=== PATIENT | female | born 1990 | race Caucasian/White ===

== ENCOUNTER 2022-06-22 08:26 | Emergency (ER) | payer BC, SELFPAY ==
--- NOTE | 2022-06-22 08:33 | ED.URI ---
HPI - URI/Sore Throat General Chief Complaint: Upper Respiratory Infection Stated Complaint: Sore Throat Source: patient and RN notes reviewed History of Present Illness HPI Narrative: 31-year-old female presents to urgent care with complaints of a sore throat and fevers since yesterday. Patient states her son tested positive for strep throat on Wednesday. Patient has taken Tylenol for her symptoms. Patient denies any chest pain and shortness of breath, or vomiting. Patient is approximately 11 weeks . 3 para 4. Some parts of this dictation were generated by voice recognition software and may contain typographical and/or grammatical inaccuracies. Related Data Home Medications Medication Instructions Recorded Confirmed escitalopram oxalate 20 mg tablet 20 mg PO DIRECTED 06/22/22 06/22/22 Allergies Allergy/AdvReac Type Severity Reaction Status Date / Time cefaclor Allergy Mild Hives / Verified 06/22/22 08:40 Red Face sulfamethoxazole Allergy Mild Hives / Verified 06/22/22 08:40 Red Face trimethoprim Allergy Mild Hives / Verified 06/22/22 08:40 Red Face Review of Systems Review of Systems: CONSTITUTIONAL: Denies fever, chills, or sweats. EYES: Denies visual changes, redness, or discharge. ENT: Reports sore throat CARDIOVASCULAR: Denies chest pain, palpitations, or edema. RESPIRATORY: Denies cough or dyspnea. GASTROINTESTINAL: Denies abdominal pain, nausea, vomiting, or diarrhea. GENITOURINARY: Denies dysuria or hematuria. SKIN: Denies rash or itching. MUSCULOSKELETAL: Denies back pain, joint pain, or myalgia. NEUROLOGIC: Denies headache, numbness, or weakness. Psychiatric: Denies anxiety or any suicidal or homicidal thoughts PMFSH Comments At the time of my signature, I reviewed and agree with the nursing past medical, surgical, social, and family history. There is no relevant family history pertinent to the patient complaint. Exam Narrative: GENERAL: This is a well-nourished, well-developed patient, in no apparent distress. HEAD: normocephalic, atraumatic. EYES: PERRL. Sclera clear/white. Vision is grossly intact. EARS: External ears normal, auditory canals clear and without drainage, TMs normal without perforation. Hearing grossly intact. NOSE: External nose normal with no obvious nasal discharge, nares without redness, no rhinorrhea. THROAT: Pharynx erythemic. Tonsils 1+ bilaterally. No exiting and. NECK: Mild lymphadenopathy. CARDIOVASCULAR: Regular rate and rhythm without murmurs, gallops, or rubs. RESPIRATORY: Clear to auscultation. Breath sounds equal bilaterally. No wheezes, rales, or rhonchi. GASTROINTESTINAL: Abdomen soft, non-tender, nondistended. Bowel sounds are active. No hepato-splenomegaly, or palpable masses. No guarding. SKIN: warm, intact with no suspicious lesions or rash, good texture and turgor. NEURO: awake, alert, and oriented to person, place and time. There were no obvious focal neurologic abnormalities. Course Course Level of Care: Express Care Visit Vital Signs Vital signs: Vital Signs Temperature 98.4 F 06/22/22 08:35 Pulse Rate 110 H 06/22/22 08:35 Respiratory Rate 06/22/22 08:35 Blood Pressure 103/70 06/22/22 08:35 Pulse Oximetry 100 06/22/22 08:35 Oxygen Delivery Room Air 06/22/22 08:35 Temperature 98.4 F 06/22/22 08:35 Pulse Rate 110 H 06/22/22 08:35 Respiratory Rate 20 06/22/22 08:35 Blood Pressure 103/70 06/22/22 08:35 Pulse Oximetry 100 06/22/22 08:35 Oxygen Delivery Room Air 06/22/22 08:35 Reviewed. MDM - URI/Sore Throat MDM Narrative Medical decision making narrative: After 24 hours on antibiotics throw tooth brush away and start using a new one. Do not share drinks. Take Motrin alternating with Tylenol for pain and fever alternating every 4 hours. Increase fluids, avoid caffeine. Follow up with Primary provider if not getting better this week Differential Diagnosis
[2022-06-22 08:35] VITALS: BP 103/70; PULSE 110; RESP 20; TEMP 36.9; O2SAT 100
== END 2022-06-22 09:02 | disposition home or self-care (01) ==
PROVIDERS: Emergency Provider Nurse Practitioner Family; PCP Family Medicine
DX: J02.0 Streptococcal pharyngitis (principal)
CPT/HCPCS: 87880; 99213; G0463

== ENCOUNTER 2024-10-30 16:08 | Observation (INO) | payer OTHER, SELFPAY ==
[2024-10-30] VITALS (37 sets, daily range): BP systolic 111–132; BP diastolic 53–77; PULSE 69–117; O2SAT 81–100; BMI 28.3
--- OUTSIDE RECORDS SUMMARY | 2024-10-30 16:15 | XMS_ITS | Clinical Summary ---
Author Organization [facility] Address [address] [place] [address] Phone Care Team Providers Care Satellite Tv Installer Name Role Phone Provider, None Primary Care Provider Unavailabl e Medications escitalopram (LEXAPRO) 10 MG Tablet TAKE 1 TABLET BY MOUTH ONCE DAILY 04/16/2020 Active Ferrous Sulfate (Iron) 325 (65 Fe) MG Tablet TAKE 1 TABLET BY MOUTH TWICE DAILY WITH MORNING MEAL AND WITH EVENING MEAL 03/02/2020 Active Active Problems No known active problems Social History Tobacco Use Types Packs/Day Years Used Date Smoking Tobacco: Never Smokeless Tobacco: Never Comments No Sex and Gender Information Value Date Recorded Sex Assigned at Not on file Legal Sex Female 9:56 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 Gender Identity Not on file Sexual Orientation Not on file Last Filed Vital Signs Vital Sign Reading Time Taken Comments Blood Pressure 116/70 05/06/2020 10:46 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 Pulse 83 05/06/2020 10:46 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 Temperature 35.8 C (96.4 F) 05/06/2020 10:46 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 Respiratory Rate 16 05/06/2020 10:46 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 Oxygen Saturation 98% 05/06/2020 10:46 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 Inhaled Oxygen Concentration - - Weight 62.6 kg (138 lb) 05/06/2020 10:46 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 Height - - Body Mass Index - - Plan of Treatment Health Maintenance Due Date Last Done Comments Hepatitis C Virus (HCV) Screening 1990 Hepatitis B Immunization (1 of 3 - 19+ 3-dose series) 2009 Pap Smear 08/26/2011 Cervical Cancer Screening (CCS) 2020 HPV/Cotest 2020 Influenza Immunization (#1) 2024 03/13/2019 SARS-COV-2 Immunization ( - season) 2024 10/02/2020, 09/04/2020 Respiratory Syncytial Virus (RSV) Immunization (Adult) (1 - 1-dose 75+ series) 2065 DTaP/Tdap/Td Immunization Discontinued 06/19/2019 TdaP Immunization Completed 06/19/2019 Meningococcal Immunization (ACWY) Aged Out No longer eligible based on patient's age to complete this topic Pneumococcal Immunization Combined Aged Out No longer eligible based on patient's age to complete this topic Rotavirus Immunization Aged Out No lo nger eligible based on patient's age to complete this topic Insurance [facility] Care Teams Satellite Tv Installer Relationship Specialty Start Date End Date Provider, None [place] PCP - General 05/06/20
--- OUTSIDE RECORDS SUMMARY | 2024-10-30 16:16 | XMS_ITS | Clinical Summary ---
Author Organization [facility] Address [address] [place] [phone] Phone Care Team Providers Care Stringed Instrument Tuner Name Role Phone Unavailable Primary Care Provider Unavailabl e Encounters Date Type Department Care Team Description 10/24/2024 External Device Data ST[facility] ABSTRACTION Provider, Abstract 10/17/2024 External Device Data STL ABSTRACTION Provider, Abstract 09/21/2024 External Device Data ST[facility] ABSTRACTION Provider, Abstract 09/20/2024 External Device Data [facility] ABSTRACTION Provider, Abstract 09/19/2024 External Device Data [facility] ABSTRACTION Provider, Abstract 08/29/2024 External Device Data ST[facility] ABSTRACTION Provider, Abstract 08/29/2024 External Device Data STL ABSTRACTION Provider, Abstract 08/29/2024 External Device Data STL ABSTRACTION Provider, Abstract 08/24/2024 9:00 AM CDT - 08/24/2024 11:59 PM CDT Hospital Encounter [facility]aternal and [facility] [address] [place] [address] Hong Howadr MD Discharge Disposition: Home or Self Care from Last 3 Months Social History Tobacco Use Types Packs/Day Years Used Date Smoking Tobacco: Never Assessed Comments Unknown Sex and Gender Information Value Date Recorded Sex Assigned at Not on file Legal Sex Female 4:20 PM CDT Gender Identity Not on file Sexual Orientation Not on file Plan of Treatment Health Maintenance Due Date Last Done Comments HEPATITIS B VACCINES (1 of 3 - 19+ 3-dose series) 2009 HPV/Cotest (21-29) 08/26/2011 CERVICAL CANCER SCREENING 2020 HPV/Cotest (30-65) 2020 PAP SMEAR 2020 DTAP/TDAP/TD VACCINES (4 - Td or Tdap) 01/03/2033 01/03/2023, 06/19/2019, 02/26/2016 INFLUENZA VACCINE Completed 02/17/2024, , 02/23/2022, Additional history exists HPV VACCINES Aged Out No longer brenna nick based on patient's age to complete this topic Procedures Procedure Name Priority Date/Time Associated Diagnosis Comments US OB 14+ WKS SINGLE GEST Routine 08/24/2024 10:08 AM CDT Encounter for screening for malformation from Last 3 Months Results * US OB 14+ WKS SINGLE GEST (08/24/2024 10:08 AM CDT) Anatomical Region Laterality Modality Pelvis Ultrasound 08/24/2024 9:20 AM CDT Narrative 08/24/2024 11:34 AM CDT STL BASIC ----- Pat. Name: ALAINA MEEHAN Study Date: 08/24/2024 9:20am Pat. NO: [id number] Referring MD: HONG HOWARD MD Site: [facility] Worker: Sadia Pettit RDMS : 1990 Age: 33 ----- INDICATION ----- Anatomy Survey Anxiety, Maternal lexapro CODING ----- Diagnoses Z3A.20: Weeks of gestation O99.342: Other mental disorders complicating Z36.3: Encounter for screening for malformations Procedures 59243: Ultrasound, uterus, real time with image documentation, and maternal evaluation, after first trimester (> or = 14 weeks 0 days), transabdominal approach; single or first gestation HISTORY ----- OB History 6. Para 4 T4A1L4 MATERNAL ASSESSMENT ----- Physical Exam Weight 64 kg. BMI 25.15 kg/m METHOD ----- Transabdominal ultrasound examination ----- Bueno . Number of fetuses: 1 DATING ----- Cycle: regular cycle Method of dating: based on stated BAUDILIO GA by prior assessment 20 w + 3 d BAUDILIO by prior assessment: 01/08/2025 Ultrasound examination on: 08/24/2024 GA by U/S based upon: AC, BPD, EFW, Femur, HC GA by U/S 20 w + 3 d BAUDILIO by U/S: 01/08/2025 Assigned: based on stated BAUDILIO, selected on 08/24/2024 Assigned GA 20 w + 3 d Assigned BAUDILIO: 01/08/2025 BIOMETRY ----- BPD 48.9 mm 20w 6d 65% Hadlock OFD 65.9 mm 22w 2d 95% Pascual HC 182.9 mm 20w 5d 53% Hadlock Cerebellum tr 21.5 mm 21w 0d 66% Galvez Nuchal fold 4.9 mm AC 157.6 mm 20w 6d 60% Hadlock Femur 31.2 mm 19w 5d 18% Hadlock Humerus 30.8 mm 20w 1d 42% Pascual HC / AC 1.16 43% Nicolaides Weight Calculation: EFW 351 g 20w 2d 42% Hadlock EFW (lb,oz) 0 lb 12 oz EFW by Hadlock ([id number]) Head / Face / Neck Biometry: Turkey Picker 7.3 mm CM 3.5 mm 8% Nicolaides Outer IOD 32.3 mm 20w 5d 30% Pascual Extremities / Bony Struc Biometry: FL / BPD 0.64 4% Hadlock FL / HC 0.17 3% Hadlock FL / AC 0.20 5% Hadlock GENERAL EVALUATION ----- Cardiac activity present. FHR 158 bpm. movements: visualized. Presentation: transverse Placenta: Placental site: anterior. Placental rmvu-xk-jtwfvsdh os distance 51 mm Umbilical cord: Cord vessels: 3 vessel cord. Insertion site: placental insertion: normal Amniotic fluid: Amount of AF: normal amount. MVP 4.7 cm ANATOMY ----- The following structures appear normal: Head / Neck Cranium. Lateral ventricles. Choroid plexus. Midline falx. Cavum septi pellucidi. Cerebellum. Cisterna magna. Nuchal fold. Face Lips. Profile. Nose. Palate. Orbits. Heart / Thorax 4-chamber view. RVOT view. LVOT view. 3-vessel view. 7-lxnymb-bsnvwdv view. Situs. Aortic arch view. Ductal arch view. Superior vena cava. Inferior vena cava. High short axis view. Cardiac rhythm. Diaphragm. Abdomen Abdominal wall. Stomach. Kidneys. Bladder. Spine Cervical spine. Thoracic spine. Lumbar spine. Sacral spine. Extremities / Arms. Right hand. Left hand. Legs. Right foot. Left foot. Skeleton MATERNAL STRUCTURES ----- Cervix Visualized Approach - Transabdominal: Cervical length 37.9 mm Right Ovary Normal Size 35 mm x 26 mm x 15 mm. Vol 7.0 cm Left Ovary Normal Size 33 mm x 17 mm x 15 mm. Vol 4.3 cm GROWTH OVERVIEW ----- Exam date GA BPD (mm) HC (mm) AC (mm) FL (mm) HL (mm) EFW (g) 08/24/2024 20w 3d 48.9 65% 182.9 53% 157.6 60% 31.2 18% 30.8 42% 351 42% COMMENT ----- Patient's name and date of were confirmed by the crop adjuster prior to the exam IMPRESSION ----- - Intrauterine at 20w 3d based on the reported dates. - The estimated weight is 351 g which is at the 42% percentile. - The visualized anatomy appears unremarkable to the extent of ultrasound views. - The placenta is anterior without concern for previa or low-lying placenta. - Amniotic fluid amount is normal for gestational age. (MVP of 4.7 cm). Normal PCI. - Normal maternal adnexa and ovaries. - Normal cervical length. An anatomic survey cannot rule out all abnormalities, including structural, chromosome or genetic. Follow up as clinically indicated. Consider growth and third trimester anatomy at 30-32 weeks. Thank you for allowing us to participate in the care of this patient. Procedure Note Neha Graves MD - 08/24/2024 STL BASIC ----- Pat. Name:Chen MEEHAN Date:08/24/2024 9:20am Pat. NO: [id number] MD:HONG HOWARD [facility]Sadia Pettit RDMS :1990Age:33 ----- INDICATION ----- Anatomy Survey Anxiety, Maternal lexapro CODING ----- Diagnoses Z3A.20: Weeks of gestation O99.342: Other mental disorders complicatingpregnancy Z36.3: Encounter for screening formalformations Procedures [id number]: Ultrasound, uterus, real time withimage documentation, and maternal evaluation, after first trimester (> or = 14 weeks 0 days),transabdominal approach; single or first gestation HISTORY ----- OB History 6. Para 4 T4A1L4 MATERNAL ASSESSMENT ----- Physical Exam Weight 64 kg. BMI 25.15 kg/m METHOD ----- Transabdominal ultrasound examination ----- Bueno . Number of fetuses: 1 DATING ----- Cycle:regular cycle Method of dating:based on stated BAUDILIO GA by prior [id number] w + 3 d BAUDILIO by prior assessment:01/08/2025 Ultrasound examination on:08/24/2024 GA by U/S based upon:AC, BPD, EFW, Femur, HC GA by U/S20 w + 3 d BAUDILIO by U/S:01/08/2025 Assigned:based on stated BAUDILIO, selected on 08/24/2024 Assigned GA20 w + 3 d Assigned BAUDILIO:01/08/2025 BIOMETRY ----- BPD 48.9 mm 20w 6d65% Hadlock OFD 65.9 mm 22w 2d95% Pascual HC 182.9 mm 20w 5d53% Hadlock Cerebellum tr 21.5 mm 21w 0d66% Galvez Nuchal fold 4.9 mm AC 157.6 mm 20w 6d60% Hadlock Femur 31.2 mm 19w 5d18% Hadlock Humerus 30.8 mm 20w 1d42% Pascual HC / AC 1.16 43%Nicolaides Weight Calculation: EFW 351 g 20w 2d 42%Hadlock EFW (lb,oz) 0 lb 12 oz EFW by Hadlock ([id number]) Head / Face / Neck Biometry: Turkey Picker 7.3 mm CM 3.5 mm 8%Nicolaides Outer IOD 32.3 mm 20w 5d 30%Pascual Extremities / Bony Struc Biometry: FL / BPD 0.64 4%Hadlock FL / HC 0.17 3%Hadlock FL / AC 0.20 5%Hadlock GENERAL EVALUATION ----- Cardiac activity present. FHR 158 bpm. movements: visualized.Presentation: transverse Placenta: Placental site: anterior. Placental nusm-jq-eapgehcs os mm Umbilical cord: Cord vessels: 3 vessel cord. Insertion site: placentalinsertion: normal Amniotic fluid: Amount of AF: normal amount. MVP 4.7 cm ANATOMY ----- The following structures appear normal: Head / Neck Cranium. Lateral ventricles. Choroid plexus.Midline falx. Cavum septi pellucidi. Cerebellum. Cisterna magna. Nuchal fold. Face Lips. Profile. Nose. Palate. Orbits. Heart / Thorax 4-chamber view. RVOT view. LVOT view. 3-vesselview. 9-zjfkvz-bxlvhom view. Situs. Aortic arch view. Ductal arch view. Superior vena cava. Inferiorvena cava. High short axis view. Cardiac rhythm. Diaphragm. Abdomen Abdominal wall. Stomach. Kidneys. Bladder. Spine Cervical spine. Thoracic spine. Lumbar spine.Sacral spine. Extremities / Arms. Right hand. Left hand. Legs. Right foot.Left foot. Skeleton MATERNAL STRUCTURES ----- Cervix Visualized Approach - Transabdominal: Cervical length 37.9mm Right Ovary Normal Size 35 mm x 26 mm x 15 mm. Vol 7.0 cm Left Ovary Normal Size 33 mm x 17 mm x 15 mm. Vol 4.3 cm GROWTH OVERVIEW ----- Exam date GA BPD (mm) HC (mm) AC (mm) FL(mm) HL (mm) EFW (g) 08/24/2024 20w 3d 48.9 65% 182.9 53% 157.6 60%31.2 18% 30.8 42% 351 42% COMMENT ----- Patient's name and date of were confirmed by the crop adjuster priorto the exam IMPRESSION ----- - Intrauterine at 20w 3d based on the reported dates. - The estimated weight is 351 g which is at the 42% percentile. - The visualized anatomy appears unremarkable to the extent ofultrasound views. - The placenta is anterior without concern for previa or low-lyingplacenta. - Amniotic fluid amount is normal for gestational age. (MVP of 4.7 cm).Normal PCI. - Normal maternal adnexa and ovaries. - Normal cervical length. An anatomic survey cannot rule out all abnormalities, includingstructural, chromosome or genetic. Follow up as clinically indicated. Consider growth and third trimester anatomy at 30-32 weeks. Thank you for allowing us to participate in the care of this patient. us Hong Howard MD ORDERABLES Final Result from Last 3 Months Insurance [facility] OPEN ACCESS O
--- OUTSIDE RECORDS SUMMARY | 2024-10-30 16:16 | XMS_ITS | Encounter Summary ---
Author Organization [facility] Address [address] [address] Care Team Providers Care Financial Services Auditor Name Role Phone Cristina Trammell DO Primary Care Provider [phone] Reason for Visit * Reason Onset Date Comments MEDICATION REFILL 08/23/2018 Encounter Details Date Type Department Care Team (Late st Contact Info) Description 08/23/2018 Refill [facility] [address] [place] [address] Breann Plascencia MD [address] OF RHEUMATOLOGY [place], [place] [id number] MEDICATION REFILL Social History Tobacco Use Types Packs/Day Years Used Date Smoking Tobacco: Never Smokeless Tobacco: Never Comments Unknown Sex and Gender Information Value Date Recorded Sex Assigned at Not on file Legal Sex Female 5:36 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 It appears she hascanceled one appointment with Dr. Porter and has not further follow up scheduled, so I did not provide refills. Breann Plascencia MD Rheumatology Fellow documented in this encounter Plan of Treatment Not on file documented as of this encounter Visit Diagnoses Not on filedocumented in this encounter Care Teams Financial Services Auditor Relationship Specialty Start Date End Date Cristina Trammell DO PCP - General Family Medicine 10/24/18 documented as of this encounter
--- OUTSIDE RECORDS SUMMARY | 2024-10-30 16:16 | XMS_ITS | Patient Health Record ---
Author Organization [facility] Address [address] [place] [address] Care Team Providers Care Curing Finisher Name Role Phone Mike Duron Unavailable [phone] Reason For Referral No Information Plan Of Treatment No Information Insurance Providers Payer Name Payer Address Payer Phone Subscriber Number Group Number Insured Name Patient Relationship to Insured Coverage Start Date Coverage End Date COVID19 [facility] and Treatment [facility] [address] [address] [place] [address] [id number] Alaina Meehan Self - patient is the insured
--- OUTSIDE RECORDS SUMMARY | 2024-10-30 16:16 | XMS_ITS | Clinical Summary ---
Author Organization [facility] Address [address] [facility] [place] [address] Care Team Providers Care Driver Retraining Instructor Name Role Phone Cristina Trammell DO Primary Care Provider [phone] Source Comments [facility],non-owned Affiliates and Associated Physician Practices is amultiple site organization consisting of ambulatory clinics and hospital sitesin [place], [place], [place] and [place]. This disclosure is being madepursuant to the Care Everywhere program and may not contain all information available regarding this patient. Last updated 18.[facility] Allergies Active Allergy Reactions Criticality Noted Date Comments Cefaclor Other Medium 07/25/2013 Sulfamethoxazole W-Trimethoprim Other Medium 07/02 Medications * Be aware that medications may not be up to date on this document. Alwaysverify current medications with the patient. butalbital-jamal taminophen-caf feine (FIORICET) 50-325-40 MG tablet TAKE ONE OR TWO TABLETS BY MOUTH EVERY FOUR HOURS NEEDED FOR HEADACHE, NO MORE THAN 6/24 HRS 6 Active escitalopram (LEXAPRO) 10 MG tablet Take 10 mg by mouth once daily 9 Active ferrous sulfate 325 (65 FE) MG tablet Take 1 tablet by mouth 2 times daily with morning and evening meal 100 tablet 4 0 Active adalimumab (HUMIRA) 40 MG/0.4ML injection Inject 0.4 mL subcutaneously every 14 days 2 Pen 11 0 Active Active Problems Problem Noted Date Diagnosed Date Seropositive rheumatoid arthritis 10/26/2017 Long-term use of immunosuppressant medication Encounter for therapeutic drug monitoring 2017 Social History Tobacco Use Types Packs/Day Years Used Date Smoking Tobacco: Never Smokeless Tobacco: Never Comments Unknown Sex and Gender Information Value Date Recorded Sex Assigned at Not on file 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 Gender Identity Not on file Sexual Orientation Not on file Last Filed Vital Signs Vital Sign Reading Time Taken Comments Blood Pressure 118/83 10/24/2018 3:07 PM CDT Pulse 82 10/24/2018 3:07 PM CDT Temperature 36.8 C (98.3 F) 10/26/2017 10:54 AM CDT Respiratory Rate 16 10/27/2016 10:40 AM CDT Oxygen Saturation 100% 07/17/2015 12:43 PM CDT Inhaled Oxygen Concentration - - Weight 58.1 kg (128 lb) 10/24/2018 3:07 PM CDT Height 161.3 cm (5' 3.5) 10/26/2017 10:54 AM CD T Body Mass Index 22.32 10/26/2017 10:54 AM CDT Plan of Treatment Health Maintenance Due Date Last Done Comments HIV SCREENING 2005 DTAP/TDAP/TD VACCINES (1 - Tdap) 2009 HEPATITIS B VACCINE (1 of 3 - 19+ 3-dose series) 2009 COVID-19 VACCINE (1 - 2023-2 5 season) 2024 DEPRESSION SCREENING 05/03/2024 INFLUENZA VACCINE (Season Ended) 2025 03/13/2019, 01/25/2018, 04/02/2017 ZOSTER VACCINE (1 of 2) 2040 HEPATITIS C SCREENING Completed 07/31/2013 HIB VACCINE Aged Out No longer eligi ble based on patient's age to complete this topic HPV VACCINE Aged Out No longer eligi ble based on patient's age to complete this topic MENINGOCOCCAL (Group B) VACCINE SHARED DECISION-MAKING Aged Out No longer eligible based on patient's age to complete this topic MENINGOCOCCAL GROUPS A/C/Y/W VACCINE Aged Out No longer eligible b ased on patient's age to complete this topic PNEUMOCOCCAL VACCINE Aged Out No long er eligible based on patient's age to complete this topic Procedures Procedure Name Priority Date/Time Associated Diagnosis Comments HEPATITIS SCREEN ACUTE Routine 07/31/2013 11:58 AM CDT from Last 3 Months or Most Recently Relevant to Health Maintenance Results * HEPATITIS SCREEN ACUTE (07/31/2013 11:58 AM CDT) Hepatitis A Virus Antibody IgM NON-REACTI VE NON-REACT [facility]) Hepatitis B Virus Surface Antigen NON-REACTI VE NON-REACT [facility]) Hepatitis B Core Virus Antibody IgM NON-REACTI VE NON-REACT [facility]) Hepatitis C Antibody NON-REACTI VE NON-REACT [facility]) Signal/Cutoff 0.05 <1.00 [facility]) Comment: REPORT COMMENT: SPECIMEN TYPE->URINE Test Performed at: [facility] [address] [place] [address] KAY HANNA DO,MPH 07/31/2013 11:5 8 AM CDT 07/31/2013 12:00 PM CDT us Jackie Bach MD LAB - CHEMISTRY OR DERABLES Final Result [facility] ([facility] [id number] from Last 3 Months or Most Recently Relevant to Health Maintenance Insurance HEALTH PLAN [employer]THEM [employer] Care Teams Driver Retraining Instructor Relationship Specialty Start Date End Date Cristina Trammell DO PCP - General Family Medicine 10/24/18
--- OUTSIDE RECORDS SUMMARY | 2024-10-30 16:16 | XMS_ITS | Encounter Summary ---
Author Organization [facility] Health Address [address] [place] [address] Care Team Providers Care On Air Director Name Role Phone Cristina Trammell DO Primary Care Provider [phone] Reason for Visit * Reason Onset Date Comments MEDICATION REFILL 08/26/2018 Encounter Details Date Type Department Care Team (Late st Contact Info) Description 08/26/2018 Refill [facility] [address] [place] [address] Breann Plascencia MD [address] [place] [address] MEDICATION REFILL Social History Tobacco Use Types Packs/Day Years Used Date Smoking Tobacco: Never Smokeless Tobacco: Never Comments Unknown Sex and Gender Information Value Date Recorded Sex Assigned at Not on file 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
[2024-10-30] MEDS: TERBUTALINE SULFATE 1 MG/ML VIAL 0.25 MG SUB-Q ×2 (17:13→19:06)
--- NOTE | 2024-10-30 17:17 | P.HP_ITS ---
H&P: HPI History of Present Illness Date/Time: 10/30/24 17:17 Chief Complaint: abdominal pain Narrative: Alaina is a 34yo @ 30.0wks who presented to L&D with painful recurrent abdominal pains since 0900. She initially thought it was indigestion and tried Tums but the pain did not go away. They became more regular this afternoon and why she presented to L&D. She denies any VB or LOF. On arrival to L&D, she was found to be luiza regularly every 3 minutes. She was examined by the nurse and was found to be 2/50/-2, soft, anterior. She was found to be cephalic on bedside US. She was given terb and her pain did stop, but due to prematurity, recommend transfer to higher level facility. She has had regular care with Dr. Grimaldo and had a normal anatomy US at [facility]. This has otherwise been uncomplicated except for mild uterine prolapse noted before and anemia (hgb 8.9) All other 4 delivery have been vaginal and at term (last 3 were induced). Review of Systems Constitutional: Constitutional: Denies chills, Denies fever(s) and Denies headache(s) Eyes: Eyes: Denies change in vision ENT: Denies headache(s) Cardiovascular: Cardiovascular: Denies chest pain and Denies dyspnea Respiratory: Respiratory: Denies dyspnea Gastrointestinal: Gastrointestinal: Reports abdominal pain Genitourinary: Genitourinary: Denies abnormal vaginal bleeding, Reports pelvic pain and Denies vaginal discharge Neurologic: Denies headache(s) Psychiatric: Psychiatric: Denies anxiety and Denies depression [facility] Past Medical History Medical History Rheumatoid arteritis Headache Anxiety Anemia Family History Family History Mother Depression Grandparent Cancer Social History Social History Smoking status: Never smoker Meds Home Medications and Allergies Home Medications ?Medication ?Instructions ?Recorded ?Confirmed ?Type escitalopram oxalate 10 mg tablet 10 mg PO DAILY 07/27/24 10/18/24 History docosahexaenoic acid 200 mg mg PO 10/18/24 10/18/24 History capsule ( DHA) Allergies Allergy/AdvReac Type Severity Reaction Status Date / Time cefaclor Allergy Mild Hives / Verified 10/18/24 15:13 Red Face sulfamethoxazole Allergy Mild Hives / Verified 10/18/24 15:13 Red Face trimethoprim Allergy Mild Hives / Verified 10/18/24 15:13 Red Face Vital Signs Vital Signs - 24 hr 10/30/24 16:38 10/30/24 17:13 Pulse Rate 89 Blood Pressure 114/77 Pulse Oximetry 89 L Exam Const: General: cooperative, healthy appearing, comfortable and no acute distress Orientation/consciousness: patient oriented x3 Resp: Effort & Inspection: normal respiratory effort Cardio: Rate: regular rate GI: GI Palp: No abdominal tenderness : Other: FHT's: 140's/ mod kira/ no accels/ no decels - cat 1 TOCO: ctxs q3min Cervix: 2/50/-2 Membranes: intact Presentation: cephalic on bedside US Skin: General skin exam: normal color Neuro: General: patient oriented x3 Extrem: General: normal to inspection Psych: Appearance: grossly normal Affect: normal affect Attitude: cooperative Assessment and Plan Assessment and plan (1) labor: Qualifiers: labor trimester: third trimester Fetus number: single or unspecified fetus Code(s): O60.00 - labor without delivery, unspecified trimester Status: Acute Plan - Admitted in labor; regular contractions and 2cm cervical dilation at 30wks - IV fluids and terb x1; contractions spaced out and heart tones reassuring; no VB or signs of infection - due to prematurity: amp for GBS ppx, betamethasone 12mg IM, and magnesium sulfate 6g bolus - Called [facility] for maternal transfer due to prematurity ([facility] is level 2 nursery) - Dr. Epps accepted pt transfer at 1810 and she will be transported via maternal transport ambulance for labor
[2024-10-30] MEDS: LACTATED RINGERS 1,000 ML 999 ML IV CONT (17:27)
[2024-10-30] MEDS: AMPICILLIN 2 GM/NS 100 ML 2 GM/100 ML BAG IVPB (17:28)
[2024-10-30] MEDS: BETAMETHASONE SOD PHOS/ACETATE 30 MG/5 ML VIAL 12 MG IM (17:32)
[2024-10-30 17:35] LABS: Basophils Percent Auto 0.2 % (0.2-1.2); Eosinophils Absolute Auto 0.1 K/mm3 (0-0.3); Eosinophils Percent Auto 0.6 % (0-4.4); Hematocrit 29.5 % (37.0-47.0); Hemoglobin 8.9 g/dL (12.0-15.0); Immature Granulocyte Absolute 0.06 K/mm3 (0.00-0.031); Immature Granulocyte Percent A 0.5 % (0-0.5); Lymphocytes Absolute Auto 1.33 K/mm3 (0.9-3.2); Lymphocytes Percent Auto 11.8 % (18.3-44.2); Mean Corpuscular HGB Conc 30.2 g/dl (32-36); Mean Corpuscular Hemoglobin 23.9 pg (26-34); Mean Corpuscular Volume 79.1 fl (80-100); Mean Platelet Volume 11.3 fl (7.4-10.4); Monocytes Absolute Auto 0.7 K/mm3 (0.1-0.6); Neutrophils Absolute Auto 9.1 K/mm3 (1.3-6.7); Neutrophils Percent Auto 80.9 % (45.5-73.1); Platelet Count Result 164 k/mm3 (150-375); Red Blood Count 3.73 M/mm3 (4.2-5.4); Red Cell Distribution Width 13.7 % (11.5-14.5); White Blood Count 11.3 K/mm3 (4.5-10.0)
[2024-10-30 17:44] LABS: Alanine Aminotransferase 13 U/L (6-35); Albumin Level 3.6 g/dL (3.5-5.1); Alkaline Phosphatase 106 U/L (38-126); Anion Gap 6 mmol/L (4-12); Aspartate Amino Transferase 27 U/L (14-36); Bilirubin,Total 0.4 mg/dL (0.2-1.3); Blood Urea Nitrogen 4 mg/dL (7-17); Calcium 8.7 mg/dL (8.4-10.2); Carbon Dioxide 21 mmol/L (22-30); Chloride 107 mmol/L (98-107); Estimated Glomerular Filt Rate > 60; Glucose 82 mg/dL (65-110); Potassium 3.4 mmol/L (3.4-5.0); Sodium 134 mmol/L (137-145); Total Protein 7.4 g/dL (6.3-8.2)
[2024-10-30] MEDS: MAGNESIUM SULF 6 GM/WATER150ML 6 GM/150 ML BAG IVPB (17:49)
[2024-10-30] MEDS: MAGNESIUM SULF 20GM/WATER500ML 500 ML 50 MG IV CONT (18:27)
--- NOTE | 2024-10-31 07:55 | PM.TDS ---
Transfer Discharge Sum: Prov Provider Date of admission: 10/30/24 16:08 Primary care physician: ORDER BUILDER LOADER PHYSICIAN Admitting clinician: Dominique Anderson MD Attending physician on admission: Dominique Anderson Attending physician on discharge: Dominique Anderson Anticipated date of transfer: 10/30/24 Receiving physician/facility: [facility] DS: Admitting Diagnosis Discharge Date 10/30/24 Admitting Diagnosis labor DS: Discharge Diagnosis Discharge Diagnosis (1) labor: Qualifiers: labor trimester: third trimester Fetus number: single or unspecified fetus Code(s): O60.00 - labor without delivery, unspecified trimester Status: Acute Transfer Discharge Sum: Med Medications Active and Home Medications: Home Medications escitalopram oxalate 10 mg tablet 10 mg PO DAILY 07/27/24 [History Confirmed 10/30/24] docosahexaenoic acid 200 mg capsule ( DHA) mg PO 10/18/24 [History Confirmed 10/18/24] Transfer Discharge Sum: Hosp Hospital Course Hospital course: Alaina is a 34yo @ 30.0wks who presented to L&D with painful recurrent abdominal pains since 0900. She initially thought it was indigestion and tried Tums but the pain did not go away. They became more regular this afternoon and why she presented to L&D. She denies any VB or LOF. On arrival to L&D, she was found to be luiza regularly every 3 minutes. She was examined by the nurse and was found to be 2/50/-2, soft, anterior. She was found to be cephalic on bedside US. She was given terb and her pain did stop, but due to prematurity, recommend transfer to higher level facility. She has had regular care with Dr. Grimaldo and had a normal anatomy US at [facility]. This has otherwise been uncomplicated except for mild uterine prolapse noted before and anemia (hgb 8.9). All other 4 delivery have been vaginal and at term (last 3 were induced). She did get betamethasone, ampicillin, and magnesium sulfate. Prior to transfer, she began feeling painful contractions again every 3 minutes and was given another dose of terb Patient Condition: Stable Time Spent with Patient Time attestation: Total time spent providing and/or coordinating transfer services: Total time spent: Less than 30 minutes Exam Const: General: cooperative, healthy appearing, comfortable and no acute distress Orientation/consciousness: patient oriented x3 Resp: Effort & Inspection: normal respiratory effort Cardio: Rate: regular rate GI: GI Palp: No abdominal tenderness : Other: FHT's: 140's/ mod kira/ no accels/ no decels - cat 1 TOCO: ctxs q3min Cervix: 2/50/-2 Membranes: intact Presentation: cephalic on bedside US Skin: General skin exam: normal color Neuro: General: patient oriented x3 Extrem: General: normal to inspection Psych: Appearance: grossly normal Affect: normal affect Attitude: cooperative DS: Data Data Completed and Pending Labs on day of discharge: Labs from last 24 hours 10/30/24 17:24 WBC 11.3 H RBC 3.73 L Hgb 8.9 L Hct 29.5 L MCV 79.1 L MCH 23.9 L MCHC 30.2 L RDW 13.7 Plt Count 164 MPV 11.3 H Immature Gran % (Auto) 0.5 Neut % (Auto) 80.9 H Lymph % (Auto) 11.8 L Mcpherson % (Auto) 6.0 Eos % (Auto) 0.6 Baso % (Auto) 0.2 Lymph # (Auto) 1.33 Mcpherson # (Auto) 0.7 H Eos # (Auto) 0.1 Baso # (Auto) 0.0 Abs Immat Gran (auto) 0.06 H Absolute Neuts (auto) 9.1 H Absolute Nucleated RBC 0.000 Nucleated RBC % 0.0 Sodium 134 L Potassium 3.4 Chloride 107 Carbon Dioxide 21 L Anion Gap 6 BUN 4 L Creatinine 0.51 L Estim Creat Clear Calc Not Reportable Estimated GFR > 60 Glucose 82 Calcium 8.7 Total Bilirubin 0.4 AST 27 ALT 13 Alkaline Phosphatase 106 Total Protein 7.4 Albumin 3.6
== END 2024-10-30 19:48 | disposition short-term general hospital (02) ==
PROVIDERS: Admitting Provider Obstetrics & Gynecology; Visit Provider Obstetrics & Gynecology
DX: O60.03 Preterm labor without delivery, third trimester (principal); Z3A.30 30 weeks gestation of pregnancy
CPT/HCPCS: 36415; 80053; 85025; 96361; 96365; 96367; 96372; G0378; G0379; J0290; J0702; J3105; J3475; J7120

== ENCOUNTER 2024-11-22 15:25 | Observation (INO) | payer OTHER, SELFPAY ==
--- OUTSIDE RECORDS SUMMARY | 2024-11-22 15:36 | XMS_ITS | Clinical Summary ---
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 Gender Identity Not on file Sexual Orientation Not on file Last Filed Vital Signs Vital Sign Reading Time Taken Comments Blood Pressure 116/70 05/06/2020 10:46 AM CLAIM INVESTIGATOR Pulse 83 05/06/2020 10:46 AM CLAIM INVESTIGATOR Temperature 35.8 C (96.4 F) 05/06/2020 10:46 AM CLAIM INVESTIGATOR Respiratory Rate 16 05/06/2020 10:46 AM CLAIM INVESTIGATOR Oxygen Saturation 98% 05/06/2020 10:46 AM CLAIM INVESTIGATOR Inhaled Oxygen Concentration - - Weight 62.6 kg (138 lb) 05/06/2020 10:46 AM CLAIM INVESTIGATOR Height - - Body Mass Index - [...] patient's age to complete this topic Insurance [facility] Care Teams Admissions Evaluator Relationship Specialty Start Date End Date Provider, None [place] PCP - General 05/06/20
--- OUTSIDE RECORDS SUMMARY | 2024-11-22 15:36 | XMS_ITS | Encounter Summary ---
Author Organization [facility] Address [address] [facility] [address] [place] [address] Phone Care Team Providers Care Rural Mail Carrier Name Role Phone Jp Cristina Diaz DO Primary Care Provider [phone] Rayray Daily MD Unavailable [phone] No, Physician Primary Care Provider Aruna Parkinson NP Primary Care Provider Yoselin Partida MD Unavailable [phone] Hong Grimaldo MD Unavailable [phone] Reason for Visit * Reason Onset Date Comments P.A FOR ENBREL PLEASE 02/17/2023 Encounter Details Date Type Department Care Team (Late st Contact Info) Description 02/17/2023 Telephone [facility] Rheumatology [facility] 5th [place] [address] [place] [address] Julianna Cleveland, RMA P.A FOR ENBREL PLEASE Social History Tobacco Use Types Packs/Day Years Used Date Smoking Tobacco: Never Smokeless Tobacco: Never Alcohol Use Standard Drinks/Week Comments No 0 (1 standard drink = 0.6 oz pur e alcohol) Humiliation, Afraid, Rape, and Kick questionnair e Answer Date Recorded Within the last year, have y ou been afraid of your partner or ex-partner? No 06/12/2021 Within the last year, have y ou been humiliated or emotionally abused in other ways by your partner or ex-partner? No Within the last year, have y ou been kicked, hit, slapped, or otherwise physically hurt by your partner or ex-partner? No 06/12/2021 Within the last year, have y ou been raped or forced to have any kind of sexual activity by your partner or ex-partner? No 06/12/2021 Social Connection and Isolat ion Panel [NHANES] Answer Date Recorded In a typical week, how many times do you talk on the phone with family, friends, or neighbors? More than three times a week 01/01/2023 How often do you get togethe r with friends or relatives? More than three times a week 01/01/2023 How often do you attend [facility] or mu-ism services? Patient declined 01/01/2023 Do you belong to any clubs o r organizations such as worship groups, unions, fraternal or athletic groups, or school groups? Patient declined 01/01/2023 How often do you attend meet ings of the clubs or organizations you belong to? Never 01/01/2023 Are you , , di vorced, , never , or living with a partner? 01/01/2023 AUDIT-C Answer Date Recorded Q1: How often do you have a drink containing alcohol? Never 01/01/2023 Q2: How many drinks containi ng alcohol do you have on a typical day when you are drinking? Patient does not drink Q3: How often do you have si x or more drinks on one occasion? Never 01/01/2023 Overall Financial Resource Strain (CARDIA) Answe r Date Recorded How hard is it for you to pa y for the very basics like food, housing, medical care, and heating? Not hard at all 01/01/2023 PHQ-2 Answer Date Recorded PHQ-2 Total Score (If total score is 3 or more points, staff should administer the PHQ-9) 0 02/18/2023 [facility] - Occupational Stress Questionnaire Answer Date Recorded Do you feel stress - tense, restless, nervous, or anxious, or unable to sleep at night because your mind is troubled all the time - these days? Not at all 01/01/2023 Exercise Vital Sign Answer Date Recorde d On average, how many days pe r week do you engage in moderate to strenuous exercise (like a brisk walk)? 3 days 01/01/2023 On average, how many minutes do you engage in exercise at this level? 30 min 01/01/2023 Hunger Vital Sign Answer Date Recorded Within the past 12 months, y ou worried that your food would run out before you got the money to buy more. Never true 01/02/20 23 Within the past 12 months, t he food you bought just didn't last and you didn't have money to get more. Never true 01/01/2023 PRAPARE - Transportation Answer Date Re corded In the past 12 months, has l ack of transportation kept you from medical appointments or from getting medications? No 05/2022 In the past 12 months, has l ack of transportation kept you from meetings, work, or from getting things needed for daily living? No 01/01/2023 Housing Stability Vital Sign Answer Phani e Recorded In the last 12 months, was t here a time when you were not able to pay the mortgage or rent on time? No 01/01/2023 In the last 12 months, how many places have you lived? 1 01/01/2023 In the last 12 months, was t here a time when you did not have a steady place to sleep or slept in a snf (including now)? No 01/01/2023 [place] Depression Scale Answer Date Recorded [place] Depression Scale Total 0 10/09/2019 The thought of harming myself has occurred to me . Never 10/09/2019 Personal Safety Answer Date Recorded Have you ever been in or are you currently in a harmful physical or emotional relationship or is someone making you feel afraid or unsafe? 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 Gender Identity Female 07/29/2020 9:20 PM CDT Sexual Orientation Straight 07/29/2020 9: 20 PM CDT documented as of this encounter Plan of Treatment Not on file documented as of this encounter Visit Diagnoses Not on filedocumented in this encounter Care Teams Rural Mail Carrier Relationship Specialty Start Date End Date Cristina Trammell PCP - General Family Medicine 01/25/18 02/10/24 No, Physician PCP - General 02/14/24 02/16/24 Aruna Parkinson, DOG WARDEN [address] [place] [address] PCP - General Family Medicine 02/17/24 Rayray Daily MD [address] [place] [address] Public Health Assistant Obstetrics and Gynecology 01/02/23 08/20/24 Yoselin Partida MD [address] [facility] [address] [place] [address] Referring Physician Rheumatology 02/17/24 Hong Grimaldo MD [address] [place], [place] [id number] Referring Physician Obstetrics and Gynecology 08/21/24 documented as of this encounter
--- OUTSIDE RECORDS SUMMARY | 2024-11-22 15:36 | XMS_ITS | Clinical Summary ---
Author Organization [facility] Address [address] [place] [phone] Phone Care Team Providers Care Commercial Service Technician Name Role Phone Unavailable Primary Care Provider Unavailabl e Encounters Date Type Department Care Team Description 11/15/2024 External Device Data ST[facility] ABSTRACTION Provider, Abstract 11/14/2024 External Device Data [facility] ABSTRACTION Provider, Abstract 10/24/2024 External Device Data ST[facility] ABSTRACTION Provider, [...] - 08/24/2024 11:59 PM CDT Hospital Encounter [facility]aternal and [facility] [place] [address] Hong Howard MD Discharge Disposition: Home or Self Care [...] 2020 HPV/Cotest (30-65) 2020 PAP SMEAR 2020 INFLUENZA VACCINE (#1) 2024 4, 04/19/2023, 02/23/2022, Additional history exists DTAP/TDAP/TD VACCINES (4 - Td or Tdap) 01/03/2033 01/03/2023, 06/19/2019, 02/26/2016 HPV VACCINES Aged Out No longer eligi ble based [...] MEEHAN Study Date: 08/24/2024 9:20am Pat. NO: [id number] Referring MD: HONG HOWARD MD Site: [facility] Professor: Sadia Pettit RDMS : 1990 Age: 33 ----- INDICATION ----- Anatomy Survey Anxiety, Maternal lexapro CODING ----- Diagnoses Z3A.20: Weeks of gestation O99.342: Other mental disorders complicating Z36.3: Encounter for screening for malformations Procedures [id number]: Ultrasound, uterus, real time with image documentation, [...] 0 lb 12 oz EFW by Hadlock ([id number]) Head / Face / Neck Biometry: Rubber Ball Finisher 7.3 mm CM 3.5 mm 8% Nicolaides Outer IOD 32.3 mm 20w 5d 30% Pascual Extremities / Bony Struc Biometry: FL / BPD 0.64 4% Hadlock FL / HC 0.17 3% Hadlock FL / AC 0.20 5% Hadlock GENERAL EVALUATION ----- Cardiac activity present. FHR 158 bpm. movements: visualized. Presentation: transverse Placenta: Placental site: anterior. Placental fodr-vt-zrbrhwjy os distance 51 mm Umbilical cord: Cord [...] view. RVOT view. LVOT view. 3-vessel view. 7-fsjfcm-animgzv view. Situs. Aortic arch view. Ductal arch [...] and date of were confirmed by the mud boss prior to the exam IMPRESSION ----- - [...] Graves MD - 08/24/2024 STL BASIC ----- PatKel Name:Chen MEEHAN Date:08/24/2024 9:20am Pat. NO: [id number] MD:HONG HOWARD [facility]:Sadia Pettit RDMS :1990Age:33 ----- INDICATION ----- Anatomy Survey Anxiety, Maternal lexapro CODING ----- Diagnoses Z3A.20: Weeks of gestation O99.342: Other mental disorders complicatingpregnancy Z36.3: [facility] [id number]: Ultrasound, uterus, real time withimage documentation, and [...] dating:based on stated BAUDILIO GA by prior [id number] w + 3 d BAUDILIO by prior [...] 0 lb 12 oz EFW by Hadlock ([id number]) Head / Face / Neck Biometry: Rubber Ball Finisher 7.3 mm CM 3.5 mm 8%Nicolaides Outer IOD 32.3 mm 20w 5d 30%Pascual Extremities / Bony Struc Biometry: FL / BPD 0.64 4%Hadlock FL / HC 0.17 3%Hadlock FL / AC 0.20 5%Hadlock GENERAL EVALUATION ----- Cardiac activity present. FHR 158 bpm. movements: visualized.Presentation: transverse Placenta: Placental site: anterior. Placental viei-rg-vynvxjdd os [id number] mm Umbilical cord: Cord vessels: 3 vessel cord. Insertion site: placentalinsertion: normal Amniotic fluid: Amount of AF: normal amount. MVP 4.7 cm ANATOMY ----- The following structures appear normal: Head / Neck Cranium. Lateral ventricles. Choroid plexus.Midline falx. Cavum septi pellucidi. Cerebellum. Cisterna magna. Nuchal fold. Face Lips. Profile. Nose. Palate. Orbits. Heart / Thorax 4-chamber view. RVOT view. LVOT view. 3-vesselview. 1-uxsywm-swweile view. Situs. Aortic arch view. Ductal arch [...] and date of were confirmed by the mud boss priorto the exam IMPRESSION ----- - Intrauterine [...] Final Result from Last 3 Months Insurance [facility] OPEN ACCESS O
--- OUTSIDE RECORDS SUMMARY | 2024-11-22 15:36 | XMS_ITS | Referral Summary ---
Author Organization [facility] Building [address] Address [address] [place] [address] Care Team Providers Care Physician Underwriter Name Role Phone Aruna Parkinson NP Primary Care Provider Yoselin Partida MD Unavailable [phone] Hong Grimaldo MD Unavailable [phone] Encounters Date Type Department Care Team Description 10/31/2024 [address] [place] [address] [place] [phone] Daphne Eng MA 09/21/2024 Telephone [address] [place] [address] [place] [phone] Daphne Eng MA Medical Records Request from Last 3 Months Allergies Active Allergy Reactions Criticality Noted Date Comments Cefaclor Hives,Other (See comments) Medium Reaction: Hives, , Reaction: Hives, Sulfamethoxazole Hives Medium Reaction: Hives, Sulfamethoxazole-Trimethop rim Other (See comments) Reaction: Hives, Trimethoprim Hives Medium Reaction: Hives, Medications vit 66-ythi-zbene-dh a 27mg iron- 800 mcg-250 mg capsule Take by mouth Active escitalopram (LEXAPRO) 10 mg tabletIndication s:Generalized Anxiety Disorder Take 1 tablet (10 mg total) by mouth every morning 90 tablet 3 5 06/23/19 26 Active butalbital-aceta minophen-caffein e (ESGIC) 50-325-40 mg per tabletIndication s:Migraine with aura and without status migrainosus, not intractable Take 1 tablet by mouth every 4 (four) hours as needed for headaches 30 tablet 5 Active Active Problems Problem Noted Date Diagnosed Date Overweight with body mass in dex (BMI) of 25 to 25.9 in adult 08/21/2024 Assessment & Plan (08/21/2024 9:55 AM CDT): Wt Readings from Last 3 Encounters: 08/21/24 65.3 kg (144 lb) 07/19/24 61.2 kg (135 lb) 06/26/24 61.2 kg (135 lb) Body mass index is 25.51 kg/m . -Stable, at goal of <30 bmi -Discussed recommendations for exercise at least 30 minutes moderate to vigorous exercise as tolerated most days of the week. (minimum 150 minutes weekly) -Discussed importance of well-balanced diet Preventative health care 08/21/2024 Assessment & Plan (08/21/2024 10:04 AM CDT): - New or chronic worsening conditions: no significant acute issues on this visit - Mental health: Stable on Lexapro - Dental health: Up to date with regular dental care and cleaning. Discussed importance of regular tooth brushing, flossing, and dental visits. - Nutrition: Stressed importance of moderation in sodium/caffeine intake, saturated fat and cholesterol, caloric balance, sufficient intake of fresh fruits, vegetables - Exercise: Stressed the importance of regular exercise - Immunizations: Age and sex appropriate immunizations reviewed and offered - Cervical Cancer screening: Up-to-date - control: Currently Migraine with aura and witho ut status migrainosus, not intractable 02/17/2024 Assessment & Plan (08/21/2024 10:04 AM CDT): -chronic, controlled -patient currently takes Mfnpvvmxm-jqbyiymhdjuyf-hsfhxegt [id number] mg q.4 as needed -patient reports having migraine headache 2-3 migraine headaches a month which can last multiple hours to a couple of days at a time -encourage patient to use p.r.n. migraine medication if needs so -continue current treatment plan Assessment & Plan (02/17/2024 10:42 PM CDT): -chronic, not at goal -patient currently takes Yuywcwzdd-redvytosrfzub-dnqespyh [id number] mg q.4 as needed -patient reports having migraine headache 2-3 migraine headaches a month which can last multiple hours to a couple of days at a time -Topamax 25 mg daily prescribed as prevention medication -encourage patient to use p.r.n. 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): Doxycycline twice daily for 21 days Diflucan if needed, do not take Lexapro the same day as the Diflucan Flonase 2 sprays into each nostril while looking down over the sink, do not sniff in or blow nose after use for at least 30 minutes 64 ounces of caffeine free and soda free fluid daily Follow up in one month Anemia, due to inadequate iron intake 04/19/2023 Assessment & Plan (02/17/2024 10:44 PM CDT): -chronic, stable -patient reports history of iron-deficiency anemia -patient reports she typically does not take an iron supplement anymore, but does eat more iron rich foods in her diet -will recheck lab work at future visit -continue current treatment plan Assessment & Plan (04/19/2023 10:51 AM TOUR BUS DRIVER): Labs ordered, will follow. Patient can not tolerate oral iron, as it makes her constipated. She already has IBS-C, and therefore, does not want to do oral iron. She is open to iron infusions, if needed. Vitamin D deficiency 08/11/2022 Chronic pain of left knee 11/14/2020 Assessment & Plan (11/14/2020 12:30 PM CDT): OTC pain reliever of choice prn pain. May use ice-packs or heating pads 20 mins/hr to affected area prn pain. 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 Referred to neurology for further eval/mgmt. If you experience the worse headache of your life go to the nearest ER. Generalized anxiety disorder 11/30/2019 Assessment & Plan (08/21/2024 10:05 AM CDT): -chronic, controlled -patient currently takes Lexapro 10 mg daily -patient denies any worsening of depressed mood, thoughts of harming herself or others, or worsening anxiety -continue current treatment plan Assessment & Plan (02/17/2024 10:43 PM CDT): -chronic, stable -patient currently takes Lexapro 20 mg daily -patient denies any worsening of depressed mood, thoughts of harming herself or others, or worsening anxiety -refill of medication provided -continue current treatment plan Assessment & Plan (04/19/2023 10:49 AM 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 Cont. Current prescription medications, Lexapro. Assessment & Plan (02/24/2022 8:54 PM CDT): Worsening, increase Lexapro 10 mg every day up to 20 mg every day. Encouraged counseling. Assessment & Plan (11/18/2021 8:24 AM CDT): Restart Lexapro, use as directed. Notify our office if no improvement. Follow-up in 3 months. Diastasis of rectus abdominis 09/27/2018 Irritable bowel syndrome with constipation 06/24 Assessment & Plan (02/17/2024 10:45 PM CDT): -chronic, stable -currently does not take medication for this -patient reports with changes to her diet including going gluten free which has improved her IBS symptoms -continue current treatment plan Assessment & Plan (09/30/2018 2:17 PM CDT): Trial of Levsin 0.125 mg given. If no improvement, consider GI referral. Assessment & Plan (07/28/2018 12:39 PM CDT): IBS or Irritable bowel Syndrome There is no clear or specific finding in IBS to make the etiology clear! Recurrent Abdominal pain or discomfort or bloating at least 3 times/month with improvement with having a bowel movement, associated with change in frequency of stool and or associated with change of form or appearance of stool. Normal exam of abdomen. Treatment: Lifestyle Changes- Reduce Stress Try Eliminating substances like caffeine, lactose or fructose. Keep a food diary and monitor which foods cause more symptoms Consider taking a Probiotic. May take Dicyclomine or hyoscyamine regularly or as needed in a patient with bloating symptoms. Peppermint oil is an ancient preparation that has antispasmodic properties. A diet low in FODMAPs has been shown to improve multiple symptoms including diarrhea, flatus, bloating, and pain.(Fermentable oligosaccharides, disaccharides, monosaccharides, and polyols (FODMAPs) Patients with IBS have an excellent prognosis in the sense that they have a normal life expectancy, and there are no long-term complications of their disease. However, the symptoms of the disease do tend to recur for much of adulthood, particularly at times of stress or emotional difficulty or dietary indiscretions. Long-term use of immunosuppressant medication Overview (07/03/2022): Stopped prior to Assessment & Plan (01/25/2018 2:54 PM CDT): Managed by Rheumatology, continue current meds. Orencia 125mg/ml sc weekly Seropositive rheumatoid arthritis 10/26/2017 Assessment & Plan (02/17/2024 10:46 PM CDT): -chronic, stable -currently does not take medication for this -follows with Rheumatology -previously took enbrel -encourage patient to follow up with specialists as needed -continue current treatment plan Assessment & Plan (02/24/2022 8:55 PM CDT): Patient followed closely by Rheumatology. Pain managed. Assessment & Plan (11/14/2020 12:33 PM CDT): On Humira, managed by fitter up. Cont current mgmt. Assessment & Plan (09/30/2018 2:17 PM CDT): Managed by Rheumatology, cont current mgmt. Orencia auto injector. Assessment & Plan (01/25/2018 2:51 PM CDT): Managed by Rheumatology. Estimated Date of Delivery Comme nts Yes 01/08/2025 Based on last me nstrual period of 04/03/2024 (Exact Date) Resolved Problems Problem Noted Date Diagnosed Date Resolved Date Body mass index (BMI) of 23. 0 to 23.9 in adult 02/17/2024 08/21/2024 Assessment & Plan (02/17/2024 10:47 PM CDT): Wt Readings from Last 3 Encounters: 02/17/24 59 kg (130 lb) 08/23/23 69.9 kg (154 lb) 06/25/23 72.6 kg (160 lb 1.6 oz) Body mass index is 23.03 kg/m . -Stable, at goal of <30 bmi -Discussed recommendations for exercise at least 30 minutes moderate to vigorous exercise as tolerated most days of the week. (minimum 150 minutes weekly) -Discussed importance of well-balanced diet Chest pain 02/23/2022 02/18/2023 Assessment & Plan (02/24/2022 8:53 PM CDT): Currently asymptomatic. EKG NSR. Encouraged patient to go to nearest ER if S/Sxs worsen. Referred to cardiology for further eval. Well woman exam 08/01/2021 11/17/2021 Overview (08/01/2021): Lab: Pap:all normal Labs in October with pcp Frannie: Colonoscopy: in high school for IBS BMD: Gardasil:07/03 Assessment & Plan (08/01/2021 5:37 PM CDT): Pap done. RTO 12m. I will send the results to the portal. If she has not heard in a week, to call the office. Periumbilical abdominal pain 07/28/2018 06/20/2019 Assessment & Plan (09/30/2018 2:16 PM CDT): No acute abdomen today. Precautions given, go to nearest ER if S/Sxs worsen. Otherwise, CT ABD W WO contrast ordered. Need Pre Auth from insurance company prior to scheduling. Assessment & Plan (07/28/2018 12:41 PM CDT): Patient presents with intermittent dull ache near her navel area. Patient reports that she had a similar pain about a month ago but it was slightly higher and was started on Zantac. Patient with history of IBS There was no palpated tenderness to her abdomen. She did start a gluten free diet a couple weeks ago so her bowel movements are little bit more regular. She does admit that she did drink a lot of soda on Wednesday night, and her pain started on Wednesday. Will check CBC and CMP today will have patient start Protonix and see if she notices an improvement. Patient was positive for the flu last week and did take a lot of ibuprofen. This could have exacerbated her stomach problems. I recommend that she does take Tylenol, If symptoms get worse and she develops fever, chills, increased abdominal pain I recommend that she go to the emergency room Iron deficiency anemia due t o chronic blood loss 01/25/2018 07/03/2022 Assessment & Plan (02/24/2022 8:55 PM CDT): Rx refilled, take as directed. Assessment & Plan (11/14/2020 12:33 PM CDT): Labs ordered, encouraged patient to take iron supplements. Assessment & Plan (01/25/2018 4:26 PM CDT): Asx. Labs ordered. Encounter for therapeutic drug monitoring 10/26/2017 02/13/2019 High risk medication use 04/22/2009 Immunizations Immunization Administration Dates Next Due Influenza, Quadrivalent, Spl it, Preservative Free, Intramuscular 04/19/2023,02/23/2022,03/13/2019,01/25 Influenza, Trivalent, Preser vative Free, Intramuscular 02/17/2024 Influenza, Unspecified 04/02/2017 MMR 08/31/2019(Deferred: No longer n eeded) PPD TEST 05/22/2021,06/04/2008 Tdap 01/03/2023,06/19/2019,02/26/2016 Social History Tobacco Use Types Packs/Day Years Used Date Smoking Tobacco: Never Smokeless Tobacco: Never Tobacco Cessation:Counseling Given: Yes Alcohol Use Standard Drinks/Week Comments No 0 [...] week 01/01/2023 How often do you attend [facility] or christian services? Patient declined 01/01/2023 Do you belong to any clubs o r organizations such as bahai groups, unions, fraternal or athletic groups, or school groups? Patient declined 01/01/2023 How often do you attend meet ings of the clubs or organizations you belong to? Never 01/01/2023 Are you , , di vorced, , never , or living with a partner? 01/01/2023 AUDIT-C Answer Date Recorded Q1: How often do you have a drink containing alcohol? Never 08/21/2024 Q2: How many drinks containi ng alcohol do you have on a typical day when you are drinking? Patient does not drink Q3: How often do you have si x or more drinks on one occasion? Never 08/21/2024 Overall Financial Resource Strain (CARDIA) Answe r Date Recorded How hard is it for you to pa y for the very basics like food, housing, medical care, and heating? Not hard at all 01/01/2023 PHQ-2 Answer Date Recorded PHQ-2 Total Score (If total score is 3 or more points, staff should administer the PHQ-9) 0 08/21/2024 [facility] - Occupational Stress Questionnaire Answer Date Recorded [...] place to sleep or slept in a fpc (including now)? No 01/01/2023 Peetz Depression Scale Answer Date Recorded Peetz Depression Scale Total 0 10/09/2019 The thought of harming myself has occurred to me . Never 10/09/2019 Personal Safety Answer Date Recorded Have you ever been in or are you currently in a harmful physical or emotional relationship or is someone making you feel afraid or unsafe? 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 Gender Identity Female 07/29/2020 9:20 PM CDT Sexual Orientation Straight 07/29/2020 9: 20 PM CDT Last Filed Vital Signs Vital Sign Reading Time Taken Comments Blood Pressure 100/60 08/21/2024 9:28 AM CDT Pulse 92 08/21/2024 9:28 AM CDT Temperature 36.5 C (97.7 F) 08/21/2024 9:28 AM CDT Respiratory Rate 16 08/21/2024 9:28 AM CDT Oxygen Saturation 99% 08/21/2024 9:28 AM CDT Inhaled Oxygen Concentration - - Weight 65.3 kg (144 lb) 08/21/2024 9:28 AM CDT Height 160 cm (5' 2.99) 08/21/2024 9:28 AM CDT Body Mass Index 25.51 08/21/2024 9:28 AM CDT Plan of Treatment Not on file Procedures Procedure Name Priority Date/Time Associated Diagnosis Comments HEPATITIS C ANTIBODY Routine 06/23/2024 10:45 AM TOUR BUS DRIVER Encounter for supervision of other normal in first trimester PAP AND HIGH RISK HPV, REFLEX TO GENOTYPING Routine 07/03/2022 2:38 PM TOUR BUS DRIVER Encounter for supervision of other normal in first trimester from Last 3 Months or Most Recently Relevant to Health Maintenance Results * Hepatitis C antibody Blood (06/23/2024 10:45 AM TOUR BUS DRIVER) Hep C Ab Nonreactive Nonreactive Comment: Interpretive Data Nonreactive: Antibodies to HCV not detected. Does NOT exclude the possibility of recent exposure to HCV. Equivocal: Equivocal for HCV antibodies. Supplemental molecular testing will be automatically performed to determine infection status in accordance with current CDC screening recommendations. Reactive: Positive for HCV antibodies. This may represent current or past HCV infection. Supplemental molecular testing will be automatically performed to determine current infection status in accordance with current CDC screening recommendations. Interpretive data was last revised on 2019. Testing performed by: [facility], [address] [place] [address]., [id number] Blood 06/23/2024 10:4 5 AM TOUR BUS DRIVER 06/23/2024 4:37 PM TOUR BUS DRIVER us Rayray Daily MD LAB MICROBIOLOGY - GENERAL ORDERABLES Final Result [facility] 1 [facility] [place] [address] * Pap and High Risk HPV, reflex to Genotyping (07/03/2022 2:38 PM TOUR BUS DRIVER) CLINICAL INFORMATION: [facility] Comment: LMP [facility] Comment:04/02/2022 Previous Pap [facility] Comment:NONE GIVEN Prev. Bx [facility] Comment:NONE GIVEN SOURCE: [facility] Comment:Cervix, Endocervix Pap, specimen adequacy [facility] Comment: Satisfactory for evaluation. Endocervical/transformation zone component present. HPV interp [facility] Comment:Negative for intraep ithelial lesion or malignancy. 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 [id number] Comment [facility] Comment: EXPLANATORY NOTE: The Pap is a screening test for cervical cancer. It is not a diagnostic test and is subject to false negative and false positive results. It is most reliable when a satisfactory sample, regularly obtained, is submitted with relevant clinical findings and history, and when the Pap result is evaluated along with historic and current clinical information. Human papillomavirus DNA, High Risk E6/E7 Not Detected NOT DETECTED Blair Farrar /Nella Giraldo [facility] [place] Comment: Not Detected High Risk HPV types (16,18,31,33,35,39,45,51,52, 56,58,59,66,68) were not detected. Other HPV types which cause anogenital lesions may be present. The significance of the other types of HPV in malignant processes has not been established. Methodology: Real Time PCR Thin prep 07/03/2022 2:38 PM TOUR BUS DRIVER 07/06/2022 6:35 AM TOUR BUS DRIVER Rayray Daily MD LAB CYTOLOGY ORDERABLES Fi nal Result [facility] [address] [place] [id number] [facility] [address] [place] [phone] from Last 3 Months or Most Recently Relevant to Health Maintenance Insurance [facility] OPEN ACCESS Advance Directives For more information, please contact: [phone] * Full Code (Latest Code Status on File) Date Activated Date Inactivated Comments 01/01/2023 6:31 AM 01/03/2023 10:30 PM Full CPR in c ase of cardiopulmonary arrest * Full Code Date Activated Date Inactivated Comments 08/30/2019 8:08 AM 08/31/2019 10:04 PM Full CPR in case of cardiopulmonary arrest Care Teams Physician Underwriter Relationship Specialty Start Date End Date Aruna Parkinson [employer] [address] [place] [address] [address] [place] [address] PCP - General Family Medicine 02/17/24 Yoselin Partida MD [address] [place] [address] Referring Physician Rheumatology 02/17/24 Hong Grimaldo MD [address] [facility] [address] [facility] [address] [place] [address] Referring Physician Obstetrics and Gynecology 08/21/24
--- OUTSIDE RECORDS SUMMARY | 2024-11-22 15:36 | XMS_ITS | Clinical Summary ---
Author Organization [facility] Building [address] Address [address] [place] [address] Care Team Providers Care Paid Search Manager Name Role Phone Aruna Parkinson NP Primary Care Provider Yoselin Partida MD Unavailable [phone] Hong Grimaldo MD Unavailable [phone] Allergies Active Allergy Reactions Criticality Noted Date Comments Cefaclor Hives,Other (See comments) Medium Reaction: Hives, , Reaction: Hives, Sulfamethoxazole Hives Medium Reaction: Hives, Sulfamethoxazole-Trimethop rim Other (See comments) Reaction: Hives, Trimethoprim Hives Medium Reaction: Hives, Medications vit 23-sctx-iurfx-dh a 27mg iron- 800 mcg-250 mg capsule [...] hours as needed for headaches 30 tablet Active Active Problems Problem Noted Date Diagnosed [...] AM CDT): -chronic, controlled -patient currently takes Egqnhgqxz-uprnrunfxulsz-oonsrkmc [id number] mg q.4 as needed -patient reports having migraine headache 2-3 migraine headaches a month which can last multiple hours to a couple of days at a time -encourage patient to use p.r.n. migraine medication if needs so -continue current treatment plan Assessment & Plan (02/17/2024 10:42 PM CDT): -chronic, not at goal -patient currently takes Xtmqcnnrg-eghrageufihqx-tsioijlf [id number] mg q.4 as needed -patient reports having [...] needed Assessment & Plan (06/25/2023 1:59 PM DIELECTRIC PRESS OPERATOR): Doxycycline twice daily for 21 days Diflucan [...] plan Assessment & Plan (04/19/2023 10:51 AM DIELECTRIC PRESS OPERATOR): Labs ordered, will follow. Patient can not [...] plan Assessment & Plan (04/19/2023 10:49 AM DIELECTRIC PRESS OPERATOR): Stable. Cont. Current prescription medications, Lexapro. Assessment [...] 12:33 PM CDT): On Humira, managed by carbide powder processor. Cont current mgmt. Assessment & Plan (09/30/2018 [...] 10/26/2017 02/13/2019 High risk medication use 04/22/2009 Encounters Date Type Department Care Team Description 10/31/2024 Telephone Víctor giddy 4 [facility] [address] [place] [id number] Daphne Eng MA 09/21/2024 Telephone [facility] [address] [place] [address] [address] [place] [address] Daphne Eng MA Medical Records Request from Last 3 Months Immunizations Immunization Administration Dates Next Due Influenza, Quadrivalent, Spl it, Preservative Free, Intramuscular 04/19/2023,02/23/2022,03/13/2019,01/25 Influenza, Trivalent, Preser vative Free, Intramuscular 02/17/2024 Influenza, Unspecified 04/02/2017 MMR 08/31/2019(Deferred: No longer n eeded) PPD TEST 05/22/2021,06/04/2008 Tdap 01/03/2023,06/19/2019,02/26/2016 Surgical History Surgery Date Site/Laterality Comments COLONOSCOPY Medical History Medical History Date Comments Rheumatoid arthritis (HCC) well controlled currently in . not on any medicines currently. Anxiety Migraine IBS (irritable bowel syndrome) Family History Medical History Relation Name Comments Prostate cancer Father No Known Problems Half-Brother Alcohol abuse Maternal Grandfather Heart disease Maternal Grandfather COPD Maternal Grandmother Cancer Maternal Grandmother Heart attack Maternal Grandmother Hypertension Mother Rheum arthritis Mother Breast cancer Other 1 maternal aunt late 50s lenora y 60s Cancer Other 1 maternal aunt Family history of Cancer -; Rheum arthritis Other 1 maternal aunt Coronary artery disease Other 2 Fami ly history of Coronary artery disease; Lung cancer Other 2 Breast cancer Other 3 Maternal Aunt Rheum arthritis Other 3 Maternal Aunt Heart disease Paternal Grandfather Memory loss Paternal Grandfather No Known Problems Paternal Grandmother No Known Problems Paternal Half-Sister Colon cancer Neg Hx no pie maker machine cancer Relation Name Status Comments Father Alive Half-Brother Other Maternal Grandfather Maternal Grandmother Mother Alive Other 1 maternal aunt Other Other 2 Other 3 Maternal Aunt Alive Paternal Grandfather Alive Paternal Grandmother Alive Paternal Half-Sister Other Social History Tobacco Use Types Packs/Day Years [...] week 01/01/2023 How often do you attend [facility] or congregational services? Patient declined 01/01/2023 Do you belong to any clubs o r organizations such as anabaptist groups, unions, fraternal or athletic groups, or [...] staff should administer the PHQ-9) 0 08/21/2024 [facility] - Occupational [...] place to sleep or slept in a correction (including now)? No 01/01/2023 [place] Depression Scale Answer Date Recorded [place] Depression Scale Total 0 10/09/2019 The thought [...] on file Legal Sex Female 12:44 PM DIELECTRIC PRESS OPERATOR Gender Identity Female 07/29/2020 9:20 PM CDT Sexual Orientation Straight 07/29/2020 9: 20 PM CDT Obstetrics History Para Term AB IAB SAB Ectopic Multiple Livin g Live Births 6 4 4 0 1 0 1 0 0 4 4 Date Outcome GA Total Labor Labor/2nd/3rd Weight Sex Type Anes PTL Sarai A1 A5 Name Clin 2009 SAB SAB 2012 Term 38w 0d 3.487 kg (7 lb 11 oz) F Vag-Sp ont Epidur al Livin g Complications:None 2016 Term 39w 0d 3.289 kg (7 lb 4 oz) M Vag-Sp ont Epidur al Livin g Complications:None 2019 Term 39w 2d 2h 21m 2h 07m/0h 09m/0h 05m 3.505 kg (7 lb 11.6 oz) M Vag-Sp ont Epidur al,Com bined Spinal /Epidu ral N Livin g 8 9 ANNE-MARIE CANO Bindu N., MD Complications:None Delivery Location:[facility]) 2022 Term 39w 1d 0h 20m 0h 14m/0h 06m 3.58 kg (7 lb 14.3 oz) M Vagina l Epidur al N Livin g 8 9 ANNE-MARIE CANO Josep h Mark, MD Complications:Precipitous La bor (<3 hours) Delivery Location:[facility] ([facility]) Current Comments SAB due to MTX use for RA. Quick labors with both babies- induced with Juan (son). Daughter with ex-, second child and current both with current . Summary Episode Dates Number of Fetuses Estimated Date of Delivery 06/23/2024 - Present (11/22/2024) 01/08/2025 (set by Rayray Daily MD on 06/23/2024 based on Last Menstrual Period on 04/03/2024 (Exact Date)) Dating Summary Based On BAUDILIO GA Diff Last Menstrual Period on 04/03/2024 (Exact Date) 01/08/2025 Working Ultrasound on 06/08/2024 01/07/2025 +1d GA:9w4d Vitals Pregravid Weight Height TWG (As of 11/22/2024) Pregrav id BMI 160 cm (5' 3) Date GA Fund Present FHR Mvmt BP Weight Edema Alb Glu Ket Dil/ Eff/Sta 5 11w4d 118/76 62.6 kg (138 lb) 0/0/ Notes Progress Notes - Office Visi t - 06/23/2024 - GA:11w4d 06/23/2024 - 11w4d - Rayray Daily MD Initial OB Visit Subjective: Alaina Meehan is a 33 y.o., at 11w4d, based on LMP, who presents for initial visit. Her obstetrical history is significant for x 4 . Past history fully reviewed. She reports nausea. Additional concerns today: none. Menstrual History: Patient's last menstrual period was 04/03/2024 (exact date). Sexual History: OB History 6 Para 4 Term 4 0 AB 1 Living 4 SAB 1 IAB 0 Ectopic 0 Multiple 0 Live Births 4 # Outcome Date GA Labor/2nd Weight Sex Type Anes PTL Lv A1 A5 1 2009 SAB 2 Term 01/26/13 38w0d 3.487 kg (7 lb 11 oz) F Vag-Spont Epidural Living 3 Term 05/09/16 39w0d 3.289 kg (7 lb 4 oz) M Vag-Spont Epidural Living 4 Term 08/30/19 39w2d 2h 07m / 0h 09m 3.505 kg (7 lb 11.6 oz) M Vag-Spont Epidural, Combined Spinal/Epidural N Living 8 9 Name: MARGARET MEEHAN Location: This Facility Delivering Clinician: Abi Gonzales MD 5 Term 01/01/23 39w1d / 0h 14m 3.58 kg (7 lb 14.3 oz) M Vaginal Epidural N Living 8 9 Name: MARGARET MEEHAN Complications: Precipitous Labor (<3 hours) Location: This Facility Delivering Clinician: Rayray Daily MD 6 Current Obstetric Comments SAB due to MTX use for RA. Quick labors with both babies- induced with Juan (son). Daughter with ex-, second child and current both with current . Past Medical History: Diagnosis Date Anxiety IBS (irritable bowel syndrome) Migraine Rheumatoid arthritis (HCC) well controlled currently in . not on any medicines currently. Past Surgical History: Procedure Laterality Date COLONOSCOPY Allergies Allergen Reactions Cefaclor Other (See comments) and Hives Reaction: Hives, , Reaction: Hives, Sulfamethoxazole Hives Reaction: Hives, Sulfamethoxazole-Trimethoprim Other (See comments) Reaction: Hives, Trimethoprim Hives Reaction: Hives, Prior to Admission medications Medication Sig Start Date End Date Taking? Authorizing Provider vit 59-exqk-uqyqp-dha 27mg iron- 800 mcg-250 mg capsule Take by mouth Yes Provider, MD Chichi jihqfzwoce-wwygsvejmfoht-zxxpjniv (ESGIC) 50-325-40 mg per tablet Take 1 tablet by mouth every 4 (four) hours as needed for headaches Patient not taking: Reported on 06/23/2024 02/17/24 Aruna Parkinson, RIK escitalopram (LEXAPRO) 10 mg tablet Take 1 tablet (10 mg total) by mouth every morning 06/23/24 06/23/25 Rayray Daily MD amitriptyline (ELAVIL) 25 mg tablet Take 1 tablet (25 mg total) by mouth nightly Patient not taking: Reported on 06/23/2024 03/02/24 06/23/24 Aruna Parkinson NP escitalopram (LEXAPRO) 20 mg tablet Take 1 tablet (20 mg total) by mouth every morning Patient not taking: Reported on 06/23/2024 02/17/24 06/23/24 Aruna Parkinson NP etanercept (ENBREL) 50 mg/mL (1 mL) pen injector Inject 1 mL (50 mg total) under the skin every 7 days Patient not taking: Reported on 06/23/2024 03/09/23 06/23/24 Yoselin Partida MD Family History Problem Relation Age of Onset Hypertension Mother Rheum arthritis Mother Prostate cancer Father No Known Problems Paternal Half-Sister No Known Problems Half-Brother Cancer Maternal Grandmother COPD Maternal Grandmother Heart attack Maternal Grandmother Heart disease Maternal Grandfather Alcohol abuse Maternal Grandfather No Known Problems Paternal Grandmother Heart disease Paternal Grandfather Memory loss Paternal Grandfather Rheum arthritis Other Cancer Other Family history of Cancer -; Breast cancer Other late 50s early 60s Coronary artery disease Other Family history of Coronary artery disease; Lung cancer Other Rheum arthritis Other Breast cancer Other Colon cancer Neg Hx no pie maker machine cancer 06/12/21 Social History Tobacco Use Smoking status: Never Smokeless tobacco: Never Substance and Sexual Activity Drug use: Yes Types: Alcohol Comment: 1-2 drink tolerance, no mj ect. cmt 06/12/21 Sexual activity: Yes Partners: Male Alcohol Use: Not At Risk (02/17/2024) AUDIT-C Frequency of Alcohol Consumption: Never Average Number of Drinks: Patient does not drink Frequency of Binge Drinking: Never ROS Objective: BP 118/76 (BP Location: Right arm, Patient Position: Sitting) Ht 160 cm (5' 3) Wt 138 lb (62.6 kg) LMP 04/03/2024 (Exact Date) BMI 24.45 kg/m Physical OB Exam: Last filed by Rayray Daily MD on 06/23/2024 5:05 PM General Physical Exam HEENT: normal Heart: normal Skin: normal Thyroid: normal Lungs: normal Extremities: normal Lymph Nodes: normal Breasts: normal Neurological: normal Abdomen: normal Pelvic Exam Vulva: normal Vagina: normal Cervix: normal Uterus: 12 weeks Retroverted Adnexa: normal Spines: average Subpubic Arch: normal Pelvic Type: gynecoid See flow sheet for gestation -specific examination and vitals. See Episode Report for physical of record. Assessment: Patient is a 33 y.o., at 11w4d, size = dates. Diagnoses and all orders for this visit: Encounter for supervision of other normal in first trimester (Primary) - Drugs of Abuse Screen, Urine without Confirmation; Future - Urinalysis reflex to microscopic and culture Urine, clean voided; Future - Varicella Zoster IgG antibody Blood; Future - Hepatitis C antibody Blood; Future - Hepatitis B Surface Antigen Blood; Future - Type and screen; Future - Vitamin D 25 hydroxy; Future - RPR Blood; Future - HIV 1/2 Antibody plus p24 Antigen Blood; Future - CBC with auto differential; Future - Rubella IgG antibody Blood; Future - THINPREP TIS PAP AND HR HPV DNA, C. TRACHOMATIS AND N. GONORRHOEAE; Future Generalized anxiety disorder - escitalopram (LEXAPRO) 10 mg tablet; Take 1 tablet (10 mg total) by mouth every morning 11 weeks gestation of Seropositive rheumatoid arthritis (HCC) Comments: She states that she is in remission. She does well on gluten free diet. She is off all meds. Problem list reviewed and updated: LMP 12-24 Problems (from 06/23/24 to present) No problems associated with this episode. Plan: vitamin with DHA discussed Labs ordered Discussed genetic testing - patient declines Genetic counseling declined Carrier screening offered. I reviewed exercise, diet, medications, precautions. Also, see checklist. Follow up in 4 weeks. Rayray Daily MD 06/23/2024 ECTRIC PRESS OPERATOR Last Filed Vital Signs Vital Sign Reading [...] 08/21/2024 9:28 AM CDT Plan of Treatment Health Maintenance Due Date Last Done Comments Hepatitis B Screening 2008 Influenza Vaccine (#1) 2025 , 04/19/2023, 02/23/2022, Additional history exists Covid-19 Vaccine ( season) 2025 10/02/2020, 09/04/2020 Postponed from 01/02/2024 (Patient declined, but will receive in the future) Cervical Cancer Screening 07/03/20252022, 06/12/2021, 12/13/2017 Depression Screening 08/21/2025 08/21/2024, 02/17/2024, 04/19/2023, Additional history exists Regular Well Visit/Exam 18-64 08/21/2025 08/21/2024, 08/21/2024, 04/19/2023, Additional history exists DTaP/Tdap/Td Vaccine (4 - Td or Tdap) 01/03/2033 01/03/2023, 06/19/2019, 02/26/2016 Hepatitis C Screening Completed 06/23/2024 , 08/10/2022, 01/23/2022, Additional history exists HPV Vaccines Aged Out No longer eligi ble based on patient's age to complete this topic Pneumococcal vaccine <65 Aged Out No longer eligible based on patient's age to complete this topic Varicella Vaccines Discontinued Procedures Procedure Name Priority Date/Time Associated Diagnosis Comments HEPATITIS C ANTIBODY Routine 06/23/2024 10:45 AM DIELECTRIC PRESS OPERATOR Encounter for supervision of other normal in first trimester PAP AND HIGH RISK HPV, REFLEX TO GENOTYPING Routine 07/03/2022 2:38 PM DIELECTRIC PRESS OPERATOR Encounter for supervision of other normal in first trimester from Last 3 Months or Most Recently Relevant to Health Maintenance Results * Hepatitis C antibody Blood (06/23/2024 10:45 AM DIELECTRIC PRESS OPERATOR) Hep C Ab Nonreactive Nonreactive Comment: Interpretive [...] last revised on 2019. Testing performed by: [facility], [address] [place] [address], [place]., [address] Blood 06/23/2024 10:4 5 AM DIELECTRIC PRESS OPERATOR 06/23/2024 4:37 PM DIELECTRIC PRESS OPERATOR us Rayray Daily MD LAB MICROBIOLOGY - GENERAL ORDERABLES Final Result [facility]) [address] [facility] Department [place] [address] * Pap and High Risk HPV, reflex to Genotyping (07/03/2022 2:38 PM DIELECTRIC PRESS OPERATOR) CLINICAL INFORMATION: [facility] Comment: LMP [facility] Comment:04/02/2022 Previous Pap [facility] Comment:NONE GIVEN Prev. Bx [facility] Comment:NONE GIVEN SOURCE: [facility] Comment:Cervix, Endocervix Pap, specimen adequacy [facility] Comment: Satisfactory for evaluation. Endocervical/transformation zone component present. HPV interp [facility] Comment:Negative for intraep ithelial lesion or malignancy. Lightning Protection Installer Que [facility] Comment: MLO, CT(ASCP) CT screening location: [place] [address] Administration JAUN MANUEL [place] [id number] Review roof technician [facility] Comment: SCALES, CT(ASCP) CT Screening location: [facility] Administration JUAN MANUEL [place] [id number] Comment [facility] Comment: EXPLANATORY NOTE: The Pap is [...] Not Detected NOT DETECTED [facility]: Not Detected High Risk HPV types (16,18,31,33,35,39,45,51,52, 56,58,59,66,68) were not detected. Other HPV types which cause anogenital lesions may be present. The significance of the other types of HPV in malignant processes has not been established. Methodology: Real Time PCR Thin prep 07/03/2022 2:38 PM DIELECTRIC PRESS OPERATOR 07/06/2022 6:35 AM DIELECTRIC PRESS OPERATOR Rayray Daily MD LAB CYTOLOGY ORDERABLES Fi nal Result [facility] [address] Administration JUAN MANUEL [place] [address] [facility] [address] [place] [address] from Last 3 Months or Most Recently Relevant to Health Maintenance Insurance [employer] [place] [employer] [place] [facility] [facility] OPEN ACCESS Advance Directives For more information, please contact: [phone] * Full Code (Latest Code Status on File) Date Activated Date Inactivated Comments 01/01/2023 6:31 AM 01/03/2023 10:30 PM Full CPR in c ase of cardiopulmonary arrest * Full Code Date Activated Date Inactivated Comments 08/30/2019 8:08 AM 08/31/2019 10:04 PM Full CPR in case of cardiopulmonary arrest Care Teams Paid Search Manager Relationship Specialty Start Date End Date Aruna Parkinson NP [address] [place] [address] [address] [place] [address] PCP - General Family Medicine 02/17/24 Yoselin Partida MD [address] [place] [address] Referring Physician Rheumatology 02/17/24 Hong Grimaldo MD [address] [place] [address] Referring Physician Obstetrics and Gynecology 08/21/24
--- OUTSIDE RECORDS SUMMARY | 2024-11-22 15:36 | XMS_ITS | Encounter Summary ---
Author Organization [facility] Address [address] [facility] [place] [address] Care Team Providers Care Professional Healthcare Representative Name Role Phone Cristina Trammell DO Primary Care Provider [phone] Reason for Visit * Reason Onset Date Comments MEDICATION REFILL 08/23/2018 Encounter Details Date Type Department Care Team (Late st Contact Info) Description 08/23/2018 Refill [facility] [address] [place] [address] Breann Plascencia MD [address] OF RHEUMATOLOGY [place], [place] [id number] MEDICATION REFILL Social History Tobacco Use Types Packs/Day Years Used Date Smoking Tobacco: Never Smokeless Tobacco: Never Comments Unknown Sex and Gender Information Value Date Recorded Sex Assigned at Female 10/30/2024 11:30 PM CDT Legal Sex Female 5:36 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 It appears she hascanceled one appointment with Dr. Porter and has not further follow up scheduled, so I did not provide refills. Breann Plascencia MD Rheumatology Fellow documented in this encounter Plan of Treatment Not on file documented as of this encounter Visit Diagnoses Not on filedocumented in this encounter Care Teams Professional Healthcare Representative Relationship Specialty Start Date End Date Cristina Trammell DO PCP - General Family Medicine 10/24/18 documented as of this encounter
--- OUTSIDE RECORDS SUMMARY | 2024-11-22 15:36 | XMS_ITS | Encounter Summary ---
Author Organization [facility] Address [address] [place] [address] Care Team Providers Care Telecommunications Officer Name Role Phone Cristina Trammell DO Primary Care Provider [phone] Reason for Visit * Reason Onset Date Comments MEDICATION REFILL 08/26/2018 Encounter Details Date Type Department Care Team (Late st Contact Info) Description 08/26/2018 Refill [facility] [address] [place] [address] Breann Plascencia MD [address] [address] MEDICATION REFILL Social History Tobacco Use Types Packs/Day Years Used Date Smoking Tobacco: Never Smokeless Tobacco: Never Comments Unknown Sex and Gender Information Value Date Recorded Sex Assigned at Female 10/30/2024 11:30 PM CDT Legal Sex Female 5:36 AM STABLE MANAGER Gender Identity Not on file Sexual Orientation Not on file documented as of this encounter Plan of Treatment Not on file documented as of this encounter Visit Diagnoses Not on filedocumented in this encounter Care Teams Telecommunications Officer Relationship Specialty Start Date End Date Cristina Trammell DO PCP - General Family Medicine 10/24/18 documented as of this encounter
--- OUTSIDE RECORDS SUMMARY | 2024-11-22 15:36 | XMS_ITS | Clinical Summary ---
Author Organization [facility] Address [address] [place] [address] Care Team Providers Care Ceramic Engineer Name Role Phone Cristina Trammell DO Primary Care Provider [phone] Source Comments [facility],non-owned Affiliates and Associated Physician Practices is amultiple site organization consisting of ambulatory clinics and hospital sitesin [place], [place], [place] and [place]. This disclosure is being madepursuant to the Care Everywhere program and may not contain all information available regarding this patient. Last updated 18.[facility] Allergies Active Allergy Reactions Criticality Noted Date Comments Cefaclor Other Medium 07/25/2013 Sulfamethoxazole W-Trimethoprim Other Medium 07/02 Medications * Be aware that medications may not be up to date on this document. Alwaysverify current medications with the patient. butalbital-jamal taminophen-caf feine (FIORICET) 50-325-40 MG tablet TAKE ONE OR TWO TABLETS BY MOUTH EVERY FOUR HOURS NEEDED FOR HEADACHE, NO MORE THAN 6/24 HRS 04/12/20 16 Active ferrous sulfate 325 (65 FE) MG tablet Take 1 tablet by mouth 2 times daily with morning and evening meal 100 tablet 4 02/28/20 20 Active adalimumab (HUMIRA) 40 MG/0.4ML injection Inject 0.4 mL subcutaneously every 14 days 2 Pen 11 04/01/20 20 Active Additional Information Patient not taking.Reason: Other, Reported on 10/30/2024 escitalopram (Lexapro) 20 MG tablet Take 1 (one) tablet by mouth once daily 90 tablet 1 11/02/19 25 Active escitalopram (LEXAPRO) 10 MG tablet Take 1 (one) tablet by mouth once daily 02/15/20 19 025 Discontin ued(Dose Adjustmen t) Active Problems Problem Noted Date Diagnosed Date labor in third trimester without deliver y 10/30/2024 Seropositive rheumatoid arthritis 10/26/2017 Long-term use of immunosuppressant medication Encounter for therapeutic drug monitoring 2017 Estimated Date of Delivery Comme nts Yes 01/08/2025 Based on last me nstrual period of 04/03/2024 Encounters Date Type Department Care Team Description 11/02/2024 Telephone [facility] MATERNAL/ EVALUATION UNIT [address] [place] [address]. [address] [place] [address] Tessa Crowe RN Hospital Follow-up 10/31/2024 Telephone [facility] MATERNAL/ EVALUATION UNIT [address] [place] [address]. [address] [place] [address] Tessa Crowe RN Hospitalization 10/30/2024 8:26 PM CDT - 11/01/2024 1:50 PM CDT Hospital Encounter [facility] 5E ANTEPARTUM/MOTHER BABY [address] [id number] Jovany Epps MD IRRIGATOR VALVE PIPE Discharge Disposition: Home or Self Care 10/30/2024 Travel from Last 3 Months Social History Tobacco Use Types Packs/Day Years Used Date Smoking Tobacco: Never Smokeless Tobacco: Never Overall Financial Resource Strain (CARDIA) Answe r Date Recorded How hard is it for you to pa y for the very basics like food, housing, medical care, and heating? Not hard at all 10/30/2024 [facility] [place] [facility] Occupat ional Health - Occupational Stress Questionnaire Answer Date Recorded Do you feel stress - tense, restless, nervous, or anxious, or unable to sleep at night because your mind is troubled all the time - these days? Not at all 10/30/2024 Hunger Vital Sign Answer Date Recorded Within the past 12 months, y ou worried that your food would run out before you got the money to buy more. Never true 10/31/19 25 Within the past 12 months, t he food you bought just didn't last and you didn't have money to get more. Never true 10/30/2024 PRAPARE - Transportation Answer Date Re corded In the past 12 months, has l ack of transportation kept you from medical appointments or from getting medications? No 10/03 In the past 12 months, has l ack of transportation kept you from meetings, work, or from getting things needed for daily living? No 10/30/2024 Housing Stability Vital Sign Answer Phani e Recorded In the last 12 months, was t here a time when you were not able to pay the mortgage or rent on time? No 10/30/2024 In the past 12 months, how m any times have you moved where you were living? 0 10/30/2024 At any time in the past 12 m [facility], were you homeless or living in a prison (including now)? 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 Gender Identity Not on file Sexual Orientation Not on file Last Filed Vital Signs Vital Sign Reading Time Taken Comments Blood Pressure 108/67 11/01/2024 11:20 AM CDT Pulse 84 11/01/2024 11:20 AM CDT Temperature 36.4 C (97.6 F) 11/01/2024 11:20 AM CDT Respiratory Rate 16 11/01/2024 11:2 0 AM CDT Oxygen Saturation 98% 11/01/2024 11: 20 AM CDT Inhaled Oxygen Concentration - - Weight 72.5 kg (159 lb 13.3 oz) 025 12:15 AM CDT Height 160 cm (5' 3) 10/31/2024 12:15 AM CDT Body Mass Index 28.31 10/31/2024 12:15 AM CDT Plan of Treatment Health Maintenance Due Date Last Done Comments HIV SCREENING 2005 DTAP/TDAP/TD VACCINES (1 - Tdap) 2009 HEPATITIS B VACCINE (1 of 3 - 19+ 3-dose series) 2009 PAP SMEAR 08/26/2011 HPV VACCINE (1 - 3-dose SCDM series) 2017 COVID-19 VACCINE (2023-2 5 season) 2024 DEPRESSION SCREENING 05/03/2024 OB-ONE HOUR GLUCOSE 10/02/2024 OB-TDAP CURRENT 10/09/20242019, 02/26/2016 INFLUENZA VACCINE (#1) 2025 9, 01/25/2018, 04/02/2017 ZOSTER VACCINE (1 of 2) 2040 HEPATITIS C SCREENING Completed 07/31/2013 OB-GROUP B STREP SCREEN Completed 10/30/2024 HIB VACCINE Aged Out No longer eligi [...] on patient's age to complete this topic Respiratory Syncytial Virus (RSV) Vaccine Pt: or over 60 yrs (No Doses Required) Completed Procedures Procedure Name Priority Date/Time Associated Diagnosis Comments IMAGING/RADIOLOGY/XRA Y RESULTS ORDER 11/02/2024 6:39 PM CDT GLUCOSE - POINT OF CARE Routine 10/31/2024 10:24 AM CDT GLUCOSE - POINT OF CARE Routine 10/31/2024 5:10 AM CDT GLUCOSE - POINT OF CARE Routine 10/31/2024 12:15 AM CDT BLOOD TYPE VERIFICATION Routine 10/30/2024 10:05 PM CDT CHLAMYDIA AND N. GONORRHOEAE PAYAM Routine 10/30/2024 10:03 PM CDT TRICHOMONAS VAGINALIS PAYAM Routine 10/30/2024 10:03 PM CDT URINALYSIS REFLEX MICROSCOPIC REFLEX CULTURE Routine 10/30/2024 10:02 PM CDT CULTURE STREP B STAT 10/30/2024 10:01 PM CDT labor in third trimester without delivery (HCC) TYPE + SCREEN PANEL STAT 10/30/2024 9 :09 PM CDT CBC W AUTO DIFFERENTIAL STAT 10/30/2024 9:09 PM CDT labor in third trimester without delivery (HCC) HEPATITIS SCREEN ACUTE Routine 07/31/2013 11:58 AM CDT from Last 3 Months or Most Recently Relevant to Health Maintenance Results * IMAGING/RADIOLOGY/XRAY RESULTS ORDER (11/02/2024 6:39 PM CDT) Anatomical Region Laterality Modality Other Narrative 11/02/2024 6:39 PM CDT Ordered by an unspecified provider. us Scanned Document IMAGING Final Result * (ABNORMAL) GLUCOSE - POINT OF CARE (10/31/2024 10:24 AM CDT) Only the most recent of3 resultswithin the time period is included. Glucose WB/POC 124(H) 70 - 99 mg/dL 11/02/2024 12:31 AM CDT [facility] Specimen Type Arterial/C apillary 11/02/2024 12:31 AM CDT [facility] Blood BLOOD SPECIMEN / Unknown 10/31/2024 10:24 AM CDT 11/02/2024 12:31 AM CDT us Jovany Epps MD LAB - POINT OF CARE ORDERABLES Final Result [facility] [address] [place] [address] * BLOOD TYPE VERIFICATION (10/30/2024 10:05 PM CDT) ABO Rh O POS 10/30/2024 10:32 PM CDT [facility] LAB Blood Bank BLOOD SPECIMEN / Unknown Lab Venipuncture / Unknown 10/30/2024 10:05 PM CDT 10/30/2024 10:09 PM CDT Jovany Epps MD LAB - BLOOD BANK ORDERABLES Fin al Result [facility] LAB [address] [place] [address], [facility] [phone] * TRICHOMONAS VAGINALIS PAYAM (10/30/2024 10:03 PM CDT) Trichomonas by PAYAM NEGATIVE NEGATIVE 10/31/2024 10:41 AM CDT [facility] MICROBIOLOGY Microbiology URINE / Unknown Collection / Unknown 10/30/2024 10:03 PM CDT 10/30/2024 10:17 PM CDT Narrative [facility] MICROBIOLOGY - 10/31/2024 10:41 AM CDT This test performed by Qualitative real-time Polymerase Chain Reaction (PCR). Jovany Epps MD LAB - MICROBIOLOGY ORDERABLES F inal Result Performing Organization Address [facility] Co de Phone Number [facility] MICROBIOLOGY [address] [place] [address], [facility] [phone] * CHLAMYDIA AND N. GONORRHOEAE PAYAM (10/30/2024 10:03 PM CDT) Chlamydia by PAYAM NEGATIVE NEGATIVE 10/31/2024 10:41 AM CDT [facility] MICROBIOLOGY Neisseria gonorrhoeae PAYAM NEGATIVE NEGATIVE 10/31/2024 10:41 AM CDT [facility] MICROBIOLOGY Microbiology URINE / Unknown Collection / Unknown 10/30/2024 10:03 PM CDT 10/30/2024 10:17 PM CDT Narrative [facility] MICROBIOLOGY - 10/31/2024 10:41 AM CDT This test performed by Qualitative real-time Polymerase Chain Reaction (PCR). Jovany Epps MD LAB - MICROBIOLOGY ORDERABLES F inal Result Performing Organization Address City/[facility]/ZIP Co de Phone Number [facility] MICROBIOLOGY [address] [place] [id number] [phone] * (ABNORMAL) URINALYSIS REFLEX MICROSCOPIC REFLEX CULTURE (10/30/2024 10:02 PM CDT) Color UA Colorless(A) Yellow, Straw 10/30/2024 10:23 PM CDT [facility] Clarity UA Clear Clear 10/30/2024 10:23 PM CDT [facility] Glucose UA Normal Normal 10/30/2024 10:23 PM CDT [facility] Bilirubin UA Negative Negative 10/30/2024 10:23 PM CDT [facility] Ketone UA 3+(A) Negative 10/30/2024 10:23 PM CDT [facility] Specific [place] UA 1.014 1.005 - 1.030 10/30/2024 10:23 PM CDT [facility] Blood UA Negative Negative 10/30/2024 10:23 PM CDT [facility] pH UA 5.5 5.0 - 8.0 10/30/2024 10:23 PM CDT [facility] Protein UA Negative Negative 10/30/2024 10:23 PM CDT [facility] Urobilinogen UA Normal Normal mg/dL 10/30/2024 10:23 PM CDT [facility] Nitrite UA Negative Negative 10/30/2024 10:23 PM CDT [facility] Leukocyte Esterase UA Negative Negative 10/30/2024 10:23 PM CDT [facility] Reflex Status Culture not indicated 10/30/2024 10:23 PM CDT [facility] Urine Microscopy Urine microscopy not indicated 10/30/2024 10:23 PM CDT [facility] Urine URINE SPECIMEN OBTAINED BY CLEAN CATCH PROCEDURE / Unknown Collection / Unknown 10/30/2024 10:02 PM CDT 10/30/2024 10:17 PM CDT Narrative [facility] - 10/30/2024 10:23 PM CDT Jovany Epps MD LAB - URINALYSIS ORDERABLES Fin al Result [facility] [address] [place] [address] * (ABNORMAL) CULTURE STREP B (10/30/2024 10:01 PM CDT) [facility] Culture Strep B Growth of Streptococcus agalactiae (Group B)(AA) 11/01/2024 3:44 AM CDT [facility] MICROBIOLOGY Microbiology MISCELLANEOUS SAMPLES / Unknown Collection / Unknown 10/30/2024 10:01 PM CDT 10/30/2024 10:17 PM CDT Narrative [facility] MICROBIOLOGY - 11/01/2024 3:44 AM CDT Susceptibility testing of penicillin, other beta-lactam antibiotics, and vancomycin is not necessary for beta-hemolytic streptococci groups A,B,C and G because resistant strains have not been recognized. Jovany Epps MD LAB - MICROBIOLOGY ORDERABLES F inal Result Performing Organization Address City/[facility]/ZIP Co de Phone Number [facility] MICROBIOLOGY [address] [place] [address], [facility] [phone] * TYPE + SCREEN PANEL (ALL [facility] except [facility]) (10/30/2024 9:09 PM CDT) [facility] ABO Rh O POS 10/30/2024 10:32 PM CDT [facility] Comment:No history; collect retype. Antibody Screen NEG 10:32 PM CDT [facility] Blood Bank BLOOD SPECIMEN / Unknown Lab Venipuncture / Unknown 10/30/2024 9:09 PM CDT 10/30/2024 9:47 PM CDT Jovany Epps MD LAB - BLOOD BANK ORDERABLES Fin al Result [facility] [address] [place] [address], [facility] [phone] * (ABNORMAL) CBC W AUTO DIFFERENTIAL (10/30/2024 9:09 PM CDT) [facility] WBC 11.9(H) 4.0 - 10.7 x10E9/L 10/30/2024 9:55 PM CDT [facility] RBC Count 3.61(L) 3.90 - 5.20 x10E12/L 10/30/2024 9:[facility] Hemoglobin 8.6(L) 11.9 - 15.8 g/dL 10/30/2024 9:55 [facility] Hematocrit 28.4(L) 34.8 - 46.1 % 10/30/2024 9:55 [facility] MCV 78.7(L) 80.0 - 98.0 fL 10/30/2024 9:55 PM [facility] MCH 23.8(L) 26.7 - 33.6 pg 10/30/2024 9:55 PM [facility] MCHC 30.3(L) 31.7 - 36.3 g/dL 10/30/2024 9:55 PM [facility] RDW-CV 13.8 11.3 - 14.8 % 10/30/2024 9:55 PM [facility] Platelet Count 193 150 - 420 x10E9/L 10/30/2024 9:55 PM [facility] MPV 11.2 7.8 - 11.4 fL 10/30/2024 9:55 PM [facility] Neutrophil % 92.5(H) 41.0 - 74.0 % 10/30/2024 9:55 PM [facility] Lymphocyte % 5.3(L) 17.0 - 47.0 % 10/30/2024 9:55 PM [facility] Monocyte % 1.3(L) 3.0 - 11.0 % 10/30/2024 9:55 PM [facility] Eosinophil % 0.0 0.0 - 7.0 % 10/30/2024 9:55 [facility] Basophil % 0.1 0.0 - 1.6 % 10/30/2024 9:55 PM [facility] Immature Granulocytes % 0.8 0.0 - 1.0 % 10/30/2024 9:55 PM [facility] Neutrophil Absolute 11.05(H) 1.60 - 7.50 x10E9/L 10/30/2024 9:55 PM [facility] Lymphocyte Absolute 0.63(L) 1.00 - 4.40 x10E9/L 10/30/2024 9:55 PM CDT [facility] Monocyte Absolute 0.15 0.15 - 1.00 x10E9/L 10/30/2024 9:55 PM CDT [facility] Eosinophil Absolute 0.00 0.00 - 0.60 x10E9/L 10/30/2024 9:55 PM CDT [facility] Basophil Absolute 0.01 0.00 - 0.13 x10E9/L 10/30/2024 9:55 PM CDT [facility] Blood BLOOD SPECIMEN / Unknown Lab Venipuncture / Unknown 10/30/2024 9:09 PM CDT 10/30/2024 9:47 PM CDT us Jovany Epps MD LAB - HEMATOLOGY ORDERABLES Fin al Result Performing Organization Address [facility] Co de Phone Number [facility] [address] [place] [address] * HEPATITIS SCREEN ACUTE (07/31/2013 11:58 AM CDT) Pathologist [facility] Hepatitis A Virus Antibody IgM NON-REACTI VE NON-REACT [facility]) Hepatitis B Virus Surface Antigen NON-REACTI VE NON-REACT [facility] [place]) Hepatitis B Core Virus Antibody IgM NON-REACTI VE NON-REACT [facility] [place]) Hepatitis C Antibody NON-REACTI VE NON-REACT [facility] [place]) Signal/Cutoff 0.05 <1.00 [facility]) Comment: REPORT COMMENT: SPECIMEN TYPE->URINE Test Performed at: [facility] [address] [address] KAY HANNA DO,MPH 07/31/2013 11:5 8 AM CDT 07/31/2013 12:00 PM CDT us Jackie Bach MD LAB - CHEMISTRY OR DERABLES Final Result Performing Organization Address [facility] Co de Phone Number [facility] [phone] from Last 3 Months or Most Recently Relevant to Health Maintenance Insurance [employer] Advance Directives * Full Code (Latest Code Status on File) Date Activated Date Inactivated Comments 10/30/2024 8:40 PM 11/01/2024 2:54 PM Care Teams Ceramic Engineer Relationship Specialty Start Date End Date Cristina Trammell DO PCP - General Family Medicine 10/24/18
--- NOTE | 2024-12-04 16:26 | PM.OBTRLD ---
OB - Triage/Final Diagnosis Visit Information Comments/Additional reasons for admission: I have assessed the risk for this patient, Alaina Meehan, and determined that she would benefit from observation care. Final Diagnosis (1) contractions: Code(s): O47.00 - False labor before 37 completed weeks of gestation, unspecified trimester Status: Acute
== END 2024-11-22 17:15 | disposition home or self-care (01) ==
LOC: ANHLDR 15:34
PROVIDERS: Admitting Provider Obstetrics & Gynecology; PCP Family Medicine; Visit Provider Obstetrics & Gynecology
DX: O47.00 False labor before 37 completed weeks of gestation, unspecified trimester (principal); Z3A.00 Weeks of gestation of pregnancy not specified
CPT/HCPCS: A9270; G0378; G0379

== ENCOUNTER 2024-11-26 17:04 | Observation (INO) | payer OTHER, SELFPAY ==
[2024-11-26] VITALS (12 sets, daily range): BP systolic 106–116; BP diastolic 56–86; PULSE 92–115
--- OUTSIDE RECORDS SUMMARY | 2024-11-26 17:11 | XMS_ITS | Clinical Summary ---
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 Gender Identity Not on file Sexual Orientation Not on file Last Filed Vital Signs Vital Sign Reading Time Taken Comments Blood Pressure 116/70 05/06/2020 10:46 AM ROTOR COIL TAPER Pulse 83 05/06/2020 10:46 AM ROTOR COIL TAPER Temperature 35.8 C (96.4 F) 05/06/2020 10:46 AM ROTOR COIL TAPER Respiratory Rate 16 05/06/2020 10:46 AM ROTOR COIL TAPER Oxygen Saturation 98% 05/06/2020 10:46 AM ROTOR COIL TAPER Inhaled Oxygen Concentration - - Weight 62.6 kg (138 lb) 05/06/2020 10:46 AM ROTOR COIL TAPER Height - - Body Mass Index - - Plan of Treatment Health Maintenance Due Date Last Done Comments Hepatitis C Virus (HCV) Screening 1990 Human Papillomavirus (HPV) Immunization (1 - 3-dose series) 2005 Hepatitis B Immunization (1 of 3 - 19+ 3-dose series) 2009 Pap Smear 08/26/2011 Cervical Cancer Screening (CCS) 2020 HPV/Cotest 2020 SARS-COV-2 Immunization (3 - season) 2024 10/02/2020, 09/04/2020 Influenza Immunization (#1) 2025 03/13/2019 Respiratory Syncytial Virus (RSV) Immunization (Adult) (1 [...] patient's age to complete this topic Insurance [facility] Care Teams General Manager In Training Relationship Specialty Start Date End Date Provider, None [place] PCP - General 05/06/20
--- OUTSIDE RECORDS SUMMARY | 2024-11-26 17:11 | XMS_ITS | Encounter Summary ---
Author Organization [facility] Address [address] [facility] [address] [place] [address] Phone Care Team Providers Care Flame Annealing Machine Setter Name Role Phone Jp Cristina Diaz DO Primary Care Provider [phone] Rayray Daily MD Unavailable [phone] No, Physician Primary Care Provider Aruna Parkinson NP Primary Care Provider Yoselin Partida MD Unavailable [phone] Hong Grimaldo MD Unavailable [phone] Reason for Visit * Reason Onset Date Comments P.A FOR ENBREL PLEASE 02/17/2023 Encounter Details Date Type Department Care Team (Late st Contact Info) Description 02/17/2023 Telephone [facility] Rheumatology [facility] 5th [place] [address] [place] [address] Julianna [place], RMA P.A FOR [...] week 01/01/2023 How often do you attend [facility] or mu-ism services? Patient declined 01/01/2023 Do you belong to any clubs o r organizations such as mandaen groups, unions, fraternal or athletic groups, or [...] staff should administer the PHQ-9) 0 02/18/2023 [facility] Occupat ional [facility] - Occupational Stress Questionnaire Answer Date Recorded [...] place to sleep or slept in a care home (including now)? 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 Gender Identity Female 07/29/2020 9:20 PM CDT Sexual Orientation Straight 07/29/2020 9: 20 PM CDT documented as of this encounter Plan of Treatment Not on file documented as of this encounter Visit Diagnoses Not on filedocumented in this encounter Care Teams Flame Annealing Machine Setter Relationship Specialty Start Date End Date Cristina Trammell PCP - General Family Medicine 01/25/18 02/10/24 No, Physician PCP - General 02/14/24 02/16/24 Aruna Parkinson, TECHNOLOGY TRAINER [address] [place] [address] PCP - General Family Medicine 02/17/24 Rayray Daily MD [address] [place] [address] Day Trader Obstetrics and Gynecology 01/02/23 08/20/24 Yoselin Partida MD [address] [facility] [address] [place] [address] Referring Physician Rheumatology 02/17/24 Hong Grimaldo MD [address] [place], [place] [id number] Referring Physician Obstetrics and Gynecology 08/21/24 documented as of this encounter
--- OUTSIDE RECORDS SUMMARY | 2024-11-26 17:11 | XMS_ITS | Clinical Summary ---
Author Organization [facility] Address [address] [place] [address] Care Team Providers Care Track Machine Operator Repairer Name Role Phone Cristina Trammell DO Primary Care Provider [phone] Source Comments [facility],non-owned Affiliates and Associated Physician Practices is amultiple site organization consisting of ambulatory clinics and hospital sitesin [place], [place], [place] and [place]. This disclosure is being madepursuant to the Care Everywhere program and may not contain all information available regarding this patient. Last updated 18.[facility] Allergies Active Allergy Reactions Criticality Noted Date [...] Type Department Care Team Description 11/02/2024 Telephone [facility] EVALUATION UNIT [address] [place] [address]. [address] [place] [address] Tessa Crowe RN Hospital Follow-up 10/31/2024 Telephone [facility] [address] [place] [address]. [address] [place] [address] Tessa Crowe RN Hospitalization 10/30/2024 8:26 PM CDT - 11/01/2024 1:50 PM CDT Hospital Encounter [facility] 5E ANTEPARTUM/MOTHER BABY [address] [id number] Jovany Epps MD VEIN ACCESS TECHNICIAN Discharge Disposition: Home or Self Care 10/30/2024 Travel from Last 3 Months Social History Tobacco Use Types Packs/Day Years Used Date Smoking Tobacco: Never Smokeless Tobacco: Never Overall Financial Resource Strain (CARDIA) Answe r Date Recorded How hard is it for you to pa y for the very basics like food, housing, medical care, and heating? Not hard at all 10/30/2024 [facility] [place] of Occupat ional Health - Occupational Stress [...] any time in the past 12 m [facility], were you homeless or living in a retirement (including now)? 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 Gender Identity Not on file Sexual Orientation [...] - 99 mg/dL 11/02/2024 12:31 AM CDT [facility] Specimen Type Arterial/C apillary 11/02/2024 12:31 AM CDT [facility] Blood BLOOD SPECIMEN / Unknown 10/31/2024 10:24 AM CDT 11/02/2024 12:31 AM CDT us Jovany Epps MD LAB - POINT OF CARE ORDERABLES Final Result [facility] [address] [place] [address] * BLOOD TYPE VERIFICATION (10/30/2024 10:05 PM CDT) ABO Rh O POS 10/30/2024 10:32 PM CDT [facility] LAB Blood Bank BLOOD SPECIMEN / Unknown Lab Venipuncture / Unknown 10/30/2024 10:05 PM CDT 10/30/2024 10:09 PM CDT Jovany Epps MD LAB - BLOOD BANK ORDERABLES Fin al Result [facility] [address] [place] [address], [facility] [phone] * TRICHOMONAS VAGINALIS PAYAM (10/30/2024 10:03 PM CDT) Trichomonas by PAYAM NEGATIVE NEGATIVE 10/31/2024 10:41 AM CDT [facility] Microbiology URINE / Unknown Collection / Unknown 10/30/2024 10:03 PM CDT 10/30/2024 10:17 PM CDT Narrative [facility] - 10/31/2024 10:41 AM CDT This test performed by Qualitative real-time Polymerase Chain Reaction (PCR). Jovany Epps MD LAB - MICROBIOLOGY ORDERABLES F inal Result Performing Organization Address [facility] Co de Phone Number [facility] [address] [place] [address], [facility] [phone] * CHLAMYDIA AND N. GONORRHOEAE PAYAM (10/30/2024 10:03 PM CDT) Chlamydia by PAYAM NEGATIVE NEGATIVE 10/31/2024 10:41 AM CDT [facility] Neisseria gonorrhoeae PAYAM NEGATIVE NEGATIVE 10/31/2024 10:41 AM CDT [facility]CRO[facility] Microbiology URINE / Unknown Collection / Unknown 10/30/2024 10:03 PM CDT 10/30/2024 10:17 PM CDT Narrative [facility] - 10/31/2024 10:41 AM CDT This test performed by Qualitative real-time Polymerase Chain Reaction (PCR). Jovany Epps MD LAB - MICROBIOLOGY ORDERABLES F inal Result Performing Organization Address City/[facility]/ZIP Co de Phone Number [facility] [address] [place] [address] [phone] * (ABNORMAL) URINALYSIS REFLEX MICROSCOPIC REFLEX CULTURE (10/30/2024 10:02 PM CDT) Color UA Colorless(A) Yellow, Straw 10/30/2024 10:23 PM CDT [facility] Clarity UA Clear Clear 10/30/2024 10:23 PM CDT [facility] Glucose UA Normal Normal 10/30/2024 10:23 PM CDT [facility] Bilirubin UA Negative Negative 10/30/2024 10:23 PM CDT [facility] Ketone UA 3+(A) Negative 10/30/2024 10:23 PM CDT [facility] Specific [place] UA 1.014 1.005 - 1.030 10/30/2024 10:23 PM CDT [facility] Blood UA Negative Negative 10/30/2024 10:23 PM CDT [facility] pH UA 5.5 5.0 - 8.0 10/30/2024 10:23 PM CDT [facility] Protein UA Negative Negative 10/30/2024 10:23 PM CDT [facility] Urobilinogen UA Normal Normal mg/dL 10/30/2024 10:23 PM CDT [facility] Nitrite UA Negative Negative 10/30/2024 10:23 PM CDT [facility] Leukocyte Esterase UA Negative Negative 10/30/2024 10:23 PM CDT [facility] Reflex Status Culture not indicated 10/30/2024 10:23 PM CDT [facility] Urine Microscopy Urine microscopy not indicated 10/30/2024 10:23 PM CDT [facility] Urine URINE SPECIMEN OBTAINED BY CLEAN CATCH PROCEDURE / Unknown Collection / Unknown 10/30/2024 10:02 PM CDT 10/30/2024 10:17 PM CDT Narrative [facility] - 10/30/2024 10:23 PM CDT Jovany Epps MD LAB - URINALYSIS ORDERABLES Fin al Result [facility] [address] [place] [address] * (ABNORMAL) CULTURE STREP B (10/30/2024 10:01 PM CDT) [facility] Culture Strep B Growth of Streptococcus agalactiae (Group B)(AA) 11/01/2024 3:44 AM CDT [facility] Microbiology MISCELLANEOUS SAMPLES / Unknown Collection / Unknown 10/30/2024 10:01 PM CDT 10/30/2024 10:17 PM CDT Narrative [facility] - 11/01/2024 3:44 AM CDT Susceptibility testing of penicillin, other beta-lactam antibiotics, and vancomycin is not necessary for beta-hemolytic streptococci groups A,B,C and G because resistant strains have not been recognized. Jovany Epps MD LAB - MICROBIOLOGY ORDERABLES F inal Result Performing Organization Address City/[facility]/ZIP Co de Phone Number [facility] [address] [place] [address], [facility] [phone] * TYPE + SCREEN PANEL (ALL [facility] except [facility]) (10/30/2024 9:09 PM CDT) [facility] ABO Rh O POS 10/30/2024 10:32 PM CDT [facility] Comment:No history; collect retype. Antibody Screen NEG 10:32 PM CDT [facility] Blood Bank BLOOD SPECIMEN / Unknown Lab Venipuncture / Unknown 10/30/2024 9:09 PM CDT 10/30/2024 9:47 PM CDT Jovany Epps MD LAB - BLOOD BANK ORDERABLES Fin al Result [facility] [address] [place] [address], [facility] [phone] * (ABNORMAL) CBC W AUTO DIFFERENTIAL (10/30/2024 9:09 PM CDT) [facility] WBC 11.9(H) 4.0 - 10.7 x10E9/L 10/30/2024 9:55 PM CDT [facility] RBC Count 3.61(L) 3.90 - 5.20 x10E12/L 10/30/2024 9:55 [facility] Hemoglobin 8.6(L) 11.9 - 15.8 g/dL 10/30/2024 9:55 PM [facility] Hematocrit 28.4(L) 34.8 - 46.1 % 10/30/2024 9:55 PM [facility] MCV 78.7(L) 80.0 - 98.0 fL 10/30/2024 9:55 PM [facility] MCH 23.8(L) 26.7 - 33.6 pg 10/30/2024 9:55 PM [facility] MCHC 30.3(L) 31.7 - 36.3 g/dL 10/30/2024 9:55 PM [facility] RDW-CV 13.8 11.3 - 14.8 % 10/30/2024 9:55 PM [facility] Platelet Count 193 150 - 420 x10E9/L 10/30/2024 9:55 PM [facility] MPV 11.2 7.8 - 11.4 fL 10/30/2024 9:55 PM [facility] Neutrophil % 92.5(H) 41.0 - 74.0 % 10/30/2024 9:55 PM [facility] Lymphocyte % 5.3(L) 17.0 - 47.0 % 10/30/2024 9:55 PM [facility] Monocyte % 1.3(L) 3.0 - 11.0 % 10/30/2024 9:55 PM [facility] Eosinophil % 0.0 0.0 - 7.0 % 10/30/2024 9:55 PM [facility] Basophil % 0.1 0.0 - 1.6 % 10/30/2024 9:55 PM [facility] Immature Granulocytes % 0.8 0.0 - 1.0 % 10/30/2024 9:55 PM [facility] Neutrophil Absolute 11.05(H) 1.60 - 7.50 x10E9/L 10/30/2024 9:55 PM [facility] Lymphocyte Absolute 0.63(L) 1.00 - 4.40 x10E9/L 10/30/2024 9:55 PM CDT [facility] Monocyte Absolute 0.15 0.15 - 1.00 x10E9/L 10/30/2024 9:55 PM CDT [facility] Eosinophil Absolute 0.00 0.00 - 0.60 x10E9/L 10/30/2024 9:55 PM CDT [facility] Basophil Absolute 0.01 0.00 - 0.13 x10E9/L 10/30/2024 9:55 PM CDT [facility] Blood BLOOD SPECIMEN / Unknown Lab Venipuncture / Unknown 10/30/2024 9:09 PM CDT 10/30/2024 9:47 PM CDT us Jovany Epps MD LAB - HEMATOLOGY ORDERABLES Fin al Result Performing Organization Address [facility] Co de Phone Number [facility] [address] [place] [address] * HEPATITIS SCREEN ACUTE (07/31/2013 11:58 AM CDT) Pathologist [facility] Hepatitis A Virus Antibody IgM NON-REACTI VE NON-REACT [facility] ([facility]) Hepatitis B Virus Surface Antigen NON-REACTI VE NON-REACT [facility]) Hepatitis B Core Virus Antibody IgM NON-REACTI VE NON-REACT [facility] ([facility]) Hepatitis C Antibody NON-REACTI VE NON-REACT [facility]) Signal/Cutoff 0.05 <1.00 [facility]) Comment: REPORT COMMENT: SPECIMEN TYPE->URINE Test Performed at: [facility] [address] [address] KAY HANNA DO,MPH 07/31/2013 11:5 8 AM CDT 07/31/2013 12:00 PM CDT us Jackie Bach MD LAB - CHEMISTRY OR DERABLES Final Result Performing Organization Address [facility] Co de Phone Number [facility] [phone] from Last 3 Months or Most Recently Relevant to Health Maintenance Insurance [employer] Advance Directives * Full Code (Latest Code Status on File) Date Activated Date Inactivated Comments 10/30/2024 8:40 PM 11/01/2024 2:54 PM Care Teams Track Machine Operator Repairer Relationship Specialty Start Date End Date Cristina Trammell DO PCP - General Family Medicine 10/24/18
--- OUTSIDE RECORDS SUMMARY | 2024-11-26 17:12 | XMS_ITS | Encounter Summary ---
Author Organization [facility] Address [address] [place] [address] Care Team Providers Care Gun Number Name Role Phone Cristina Trammell DO Primary Care Provider [phone] Reason for Visit * Reason Onset Date Comments MEDICATION REFILL 08/23/2018 Encounter Details Date Type Department Care Team (Late st Contact Info) Description 08/23/2018 Refill [facility] [address] [place] [address] Breann Plascencia MD [address] OF RHEUMATOLOGY [place], [place] [id number] MEDICATION REFILL Social History Tobacco Use Types Packs/Day Years Used Date Smoking Tobacco: Never Smokeless Tobacco: Never Comments Unknown Sex and Gender Information Value Date Recorded Sex Assigned at Female 10/30/2024 11:30 PM CDT 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
--- OUTSIDE RECORDS SUMMARY | 2024-11-26 17:12 | XMS_ITS | Encounter Summary ---
Author Organization [facility] Address [address] [place] [address] Care Team Providers Care Lead Ruby On Rails Developer Name Role Phone Cristina Trammell DO Primary Care Provider [phone] Reason for Visit * Reason Onset Date Comments MEDICATION REFILL 08/26/2018 Encounter Details Date Type Department Care Team (Late st Contact Info) Description 08/26/2018 Refill [facility] [address] [place] [address] Breann Plascencia MD [address] [place] [address] MEDICATION REFILL Social History Tobacco Use Types Packs/Day Years Used Date Smoking Tobacco: Never Smokeless Tobacco: Never Comments Unknown Sex and Gender Information Value Date Recorded Sex Assigned at Female 10/30/2024 11:30 PM CDT 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
--- OUTSIDE RECORDS SUMMARY | 2024-11-26 17:12 | XMS_ITS | Clinical Summary ---
Author Organization [facility] Address [address] [place] [phone] Phone Care Team Providers Care Clinical Trial Coordinator Name Role Phone Unavailable Primary Care Provider [...] External Device Data STL ABSTRACTION Provider, Abstract from Last 3 Months Social History Tobacco Use Types Packs/Day Years Used Date Smoking Tobacco: Never Assessed Comments Unknown Sex and Gender Information Value Date Recorded Sex Assigned at Not on file Legal Sex Female 4:20 PM CDT Gender Identity Not on file Sexual Orientation Not on file Plan of Treatment Health Maintenance Due Date Last Done Comments HPV VACCINES (1 - 3-dose series) 2005 HEPATITIS B VACCINES (1 of 3 - 19+ 3-dose series) 2009 HPV/Cotest (21-29) 08/26/2011 CERVICAL CANCER SCREENING 2020 HPV/Cotest (30-65) 2020 PAP SMEAR 2020 INFLUENZA VACCINE (#1) 2024 , 04/19/2023, 02/23/2022, Additional history exists DTAP/TDAP/TD VACCINES (4 - T d or Tdap) 01/03/2033 01/03/2023, 06/19/2019, 02/26/2016 Insurance [facility] OPEN ACCESS HMO
--- OUTSIDE RECORDS SUMMARY | 2024-11-26 17:12 | XMS_ITS | Clinical Summary ---
Author Organization [facility] Building [facility] Address [address] [place] [address] Care Team Providers Care Hemming And Tacking Machine Operator Name Role Phone Aruna Parkinson NP Primary Care Provider Yoselin Partida MD Unavailable [phone] Hong Grimaldo MD Unavailable [phone] Allergies Active Allergy Reactions Criticality Noted Date Comments Cefaclor Hives,Other (See comments) Medium Reaction: Hives, , Reaction: Hives, Sulfamethoxazole Hives Medium Reaction: Hives, Sulfamethoxazole-Trimethop rim Other (See comments) Reaction: Hives, Trimethoprim Hives Medium Reaction: Hives, Medications vit 40-cpol-rlqbw-dh a 27mg iron- 800 mcg-250 mg capsule [...] AM CDT): -chronic, controlled -patient currently takes Fotzacwht-iczrgkxgxgfwc-vqgiwskt 010843 mg q.4 as needed -patient reports having migraine headache 2-3 migraine headaches a month which can last multiple hours to a couple of days at a time -encourage patient to use p.r.n. migraine medication if needs so -continue current treatment plan Assessment & Plan (02/17/2024 10:42 PM CDT): -chronic, not at goal -patient currently takes Iszxegxts-bysleeowdfmsd-axomaqif 284019 mg q.4 as needed -patient reports having [...] needed Assessment & Plan (06/25/2023 1:59 PM DATA PROCESSING SYSTEMS PROJECT PLANNER): Doxycycline twice daily for 21 days Diflucan [...] plan Assessment & Plan (04/19/2023 10:51 AM DATA PROCESSING SYSTEMS PROJECT PLANNER): Labs ordered, will follow. Patient can not [...] plan Assessment & Plan (04/19/2023 10:49 AM DATA PROCESSING SYSTEMS PROJECT PLANNER): Stable. Cont. Current prescription medications, Lexapro. Assessment [...] 12:33 PM CDT): On Humira, managed by pinball machine repairer. Cont current mgmt. Assessment & Plan (09/30/2018 [...] Department Care Team Description 10/31/2024 Telephone [facility] [employer] [address] [facility] [address] [place] [phone] Daphne Eng MA 09/21/2024 Telephone [place] [id number] [address] [place] [address] [address] [place] [address] Daphne Eng MA Medical Records [...] Paternal Half-Sister Colon cancer Neg Hx no performance improvement analyst cancer Relation Name Status Comments Father Alive [...] week 01/01/2023 How often do you attend [facility] or yazidism services? Patient declined 01/01/2023 Do you belong to any clubs o r organizations such as pentecostal groups, unions, fraternal or athletic groups, or [...] staff should administer the PHQ-9) 0 08/21/2024 [facility] of Occupat ional Health - Occupational [...] place to sleep or slept in a intermediate (including now)? No 01/01/2023 Hastings Depression Scale Answer Date Recorded Hastings Depression Scale Total 0 10/09/2019 The thought [...] on file Legal Sex Female 12:44 PM DATA PROCESSING SYSTEMS PROJECT PLANNER Gender Identity Female 07/29/2020 9:20 PM CDT [...] Estimated Date of Delivery 06/23/2024 - Present (11/26/2024) 01/08/2025 (set by Rayray Daily MD on 06/23/2024 based on Last Menstrual Period on 04/03/2024 (Exact Date)) Dating Summary Based On BAUDILIO GA Diff Last Menstrual Period on 04/03/2024 (Exact Date) 01/08/2025 Working Ultrasound on 06/08/2024 01/07/2025 +1d GA:9w4d Vitals Pregravid Weight Height TWG (As of 11/26/2024) Pregrav id BMI 160 cm (5' 3) [...] Type Anes PTL Lv A1 A5 1 SAB 2009 SAB 2 Term 01/26/13 38w0d 3.487 [...] Quick labors with both babies- induced with Juna (son). Daughter with ex-, second child and [...] Date End Date Taking? Authorizing Provider vit 79-ndhv-aimfv-dha 27mg iron- 800 mcg-250 mg capsule Take by mouth Yes Provider, MD Chichi whzawbbwbz-jvcptfpzebbzu-dlmzmtob (ESGIC) 50-325-40 mg per tablet Take 1 tablet by mouth every 4 (four) hours as needed for headaches Patient not taking: Reported on 06/23/2024 02/17/24 Aruna Parkinson, IRK escitalopram (LEXAPRO) 10 mg tablet Take 1 [...] cancer Other Colon cancer Neg Hx no performance improvement analyst cancer 06/12/21 Social History Tobacco Use Smoking [...] in 4 weeks. Rayray Daily MD 06/23/2024 PROCESSING SYSTEMS PROJECT PLANNER Last Filed Vital Signs Vital Sign Reading [...] Last Done Comments Hepatitis B Screening 2008 HPV Vaccines (1 - 3-dose SCDM series) 2017 Influenza Vaccine (#1) 2025 , 04/19/2023, 02/23/2022, [...] 06/23/2024 , 08/10/2022, 01/23/2022, Additional history exists Pneumococcal vaccine <65 Aged Out No longer eligible based on patient's age to complete this topic Varicella Vaccines Discontinued Procedures Procedure Name Priority Date/Time Associated Diagnosis Comments HEPATITIS C ANTIBODY Routine 06/23/2024 10:45 AM DATA PROCESSING SYSTEMS PROJECT PLANNER Encounter for supervision of other normal in first trimester PAP AND HIGH RISK HPV, REFLEX TO GENOTYPING Routine 07/03/2022 2:38 PM DATA PROCESSING SYSTEMS PROJECT PLANNER Encounter for supervision of other normal in first trimester from Last 3 Months or Most Recently Relevant to Health Maintenance Results * Hepatitis C antibody Blood (06/23/2024 10:45 AM DATA PROCESSING SYSTEMS PROJECT PLANNER) Hep C Ab Nonreactive Nonreactive Comment: Interpretive [...] last revised on 2019. Testing performed by: [facility], [address] [place] [address], [place]., [address] Blood 06/23/2024 10:4 5 AM DATA PROCESSING SYSTEMS PROJECT PLANNER 06/23/2024 4:37 PM DATA PROCESSING SYSTEMS PROJECT PLANNER us Rayray Daily MD LAB MICROBIOLOGY - GENERAL ORDERABLES Final Result [facility]) 1 [facility] Department [place] [address] * Pap and High Risk HPV, reflex to Genotyping (07/03/2022 2:38 PM DATA PROCESSING SYSTEMS PROJECT PLANNER) CLINICAL INFORMATION: [facility] Comment: LMP [facility] Comment:04/02/2022 Previous Pap [facility] Comment:NONE GIVEN Prev. Bx [facility] Comment:NONE GIVEN SOURCE: [facility] Comment:Cervix, Endocervix Pap, specimen adequacy [facility] Comment: Satisfactory for evaluation. Endocervical/transformation zone component present. HPV interp [facility] Comment:Negative for intraep ithelial lesion or malignancy. Cryptologist Que [facility] Comment: MLO, CT(ASCP) CT screening location: [place] [address] [address] [place] [address] Review expeller worker [facility] Comment: SCALES, CT(ASCP) CT Screening location: [facility] Administration [place] [address] Comment [facility] Comment: EXPLANATORY NOTE: The Pap is [...] Not Detected NOT DETECTED [facility]: Not Detected High Risk HPV types (16,18,31,33,35,39,45,51,52, 56,58,59,66,68) were not detected. Other HPV types which cause anogenital lesions may be present. The significance of the other types of HPV in malignant processes has not been established. Methodology: Real Time PCR Thin prep 07/03/2022 2:38 PM DATA PROCESSING SYSTEMS PROJECT PLANNER 07/06/2022 6:35 AM DATA PROCESSING SYSTEMS PROJECT PLANNER Rayray Daily MD LAB CYTOLOGY ORDERABLES Fi nal Result [facility] [address] [address] [place] [address] Blair [employer]/[facility]ella OsmanFormerly [facility] [address] [address] from Last 3 Months or Most Recently Relevant to Health Maintenance Insurance [employer] [facility] OPEN ACCESS Advance Directives For more information, please contact: [phone] * Full Code (Latest Code Status on File) Date Activated Date Inactivated Comments 01/01/2023 6:31 AM 01/03/2023 10:30 PM Full CPR in c ase of cardiopulmonary arrest * Full Code Date Activated Date Inactivated Comments 08/30/2019 8:08 AM 08/31/2019 10:04 PM Full CPR in case of cardiopulmonary arrest Care Teams Hemming And Tacking Machine Operator Relationship Specialty Start Date End Date Aruna Parkinson NP [address] [place] [address] PCP - General Family Medicine 02/17/24 Yoselin Partida MD [address] [place] [address] Referring Physician Rheumatology 02/17/24 Hong Grimaldo MD [address] [place] [address] Referring Physician Obstetrics and Gynecology 08/21/24
--- OUTSIDE RECORDS SUMMARY | 2024-11-26 17:12 | XMS_ITS | Referral Summary ---
Author Organization [facility] Address [address] [place] [address] Care Team Providers Care Commercial Loan Officer Name Role Phone Aruna Parkinson NP Primary Care Provider Yoselin Partida MD Unavailable [phone] Hong Grimaldo MD Unavailable [phone] Encounters Date Type Department Care Team Description 10/31/2024 Telephone [employer] [address] [place] [address] [place] [phone] Daphne Eng MA 09/21/2024 Telephone [employer] [address] [place] [address] [place] [phone] Daphne Eng MA Medical Records Request from Last 3 Months Allergies Active Allergy Reactions Criticality Noted Date Comments Cefaclor Hives,Other (See comments) Medium Reaction: Hives, , Reaction: Hives, Sulfamethoxazole Hives Medium Reaction: Hives, Sulfamethoxazole-Trimethop rim Other (See comments) Reaction: Hives, Trimethoprim Hives Medium Reaction: Hives, Medications vit 81-aztn-hzfds-dh a 27mg iron- 800 mcg-250 mg capsule [...] AM CDT): -chronic, controlled -patient currently takes Efbfdgjou-zqnwgmzflcoci-cioxqson [id number] mg q.4 as needed -patient reports having migraine headache 2-3 migraine headaches a month which can last multiple hours to a couple of days at a time -encourage patient to use p.r.n. migraine medication if needs so -continue current treatment plan Assessment & Plan (02/17/2024 10:42 PM CDT): -chronic, not at goal -patient currently takes Qvarirafi-cajcvalrmkrjn-twekonlt [id number] mg q.4 as needed -patient reports having [...] needed Assessment & Plan (06/25/2023 1:59 PM ACADEMIC INTERVENTIONIST): Doxycycline twice daily for 21 days Diflucan [...] plan Assessment & Plan (04/19/2023 10:51 AM ACADEMIC INTERVENTIONIST): Labs ordered, will follow. Patient can not [...] plan Assessment & Plan (04/19/2023 10:49 AM ACADEMIC INTERVENTIONIST): Stable. Cont. Current prescription medications, Lexapro. Assessment [...] 12:33 PM CDT): On Humira, managed by concrete conveyor operator. Cont current mgmt. Assessment & Plan (09/30/2018 [...] week 01/01/2023 How often do you attend [facility] or mandaen services? Patient declined 01/01/2023 Do you belong to any clubs o r organizations such as sikhism groups, unions, fraternal or athletic groups, or [...] staff should administer the PHQ-9) 0 08/21/2024 [facility] - Occupational Stress [...] place to sleep or slept in a senior living (including now)? No 01/01/2023 [place] Depression Scale Answer Date Recorded [place] Depression Scale Total 0 10/09/2019 The thought [...] on file Legal Sex Female 12:44 PM ACADEMIC INTERVENTIONIST Gender Identity Female 07/29/2020 9:20 PM CDT [...] HEPATITIS C ANTIBODY Routine 06/23/2024 10:45 AM ACADEMIC INTERVENTIONIST Encounter for supervision of other normal in first trimester PAP AND HIGH RISK HPV, REFLEX TO GENOTYPING Routine 07/03/2022 2:38 PM ACADEMIC INTERVENTIONIST Encounter for supervision of other normal in first trimester from Last 3 Months or Most Recently Relevant to Health Maintenance Results * Hepatitis C antibody Blood (06/23/2024 10:45 AM ACADEMIC INTERVENTIONIST) Hep C Ab Nonreactive Nonreactive Comment: Interpretive [...] last revised on 2019. Testing performed by: [facility], [address] [place] [address]., [id number] Blood 06/23/2024 10:4 5 AM ACADEMIC INTERVENTIONIST 06/23/2024 4:37 PM ACADEMIC INTERVENTIONIST us Rayray Daily MD LAB MICROBIOLOGY - GENERAL ORDERABLES Final Result [facility] Department [place] [address] * Pap and High Risk HPV, reflex to Genotyping (07/03/2022 2:38 PM ACADEMIC INTERVENTIONIST) CLINICAL INFORMATION: [employer] [facility] Comment: [facility]:04/[facility]2022 [facility]:NONE GIVEN Prev. Bx [facility]:NONE GIVEN SOURCE: [facility] Comment:Cervix, Endocervix Pap, specimen adequacy [facility] Comment: Satisfactory for evaluation. Endocervical/transformation zone component present. HPV interp [employer] [facility] Comment:Negative for intraep ithelial lesion or malignancy. Filter Bed Placer Que Perfect Audience [facility] Comment: MLO, CT(ASCP) CT screening location: [place] [address] [address] JUAN MANUEL Sheriff [address] [facility] Comment: KATELYN SCALES(ASCP) CT Screening location: [facility] [place] [address] [facility] Comment: EXPLANATORY NOTE: The Pap is [...] Detected NOT DETECTED Blair Farrar /[facility] [place] Comment: Not Detected High Risk HPV types (16,18,31,33,35,39,45,51,52, 56,58,59,66,68) were not detected. Other HPV types which cause anogenital lesions may be present. The significance of the other types of HPV in malignant processes has not been established. Methodology: Real Time PCR Thin prep 07/03/2022 2:38 PM ACADEMIC INTERVENTIONIST 07/06/2022 6:35 AM ACADEMIC INTERVENTIONIST Rayray Daily MD LAB CYTOLOGY ORDERABLES Fi nal Result [facility] [address] [place] [address] Blair Farrar[facility] [address] [place] [address] from Last 3 Months or Most Recently Relevant to Health Maintenance Insurance [facility] Advance Directives For more information, please contact: [phone] * Full Code (Latest Code Status on File) Date Activated Date Inactivated Comments 01/01/2023 6:31 AM 01/03/2023 10:30 PM Full CPR in c ase of cardiopulmonary arrest * Full Code Date Activated Date Inactivated Comments 08/30/2019 8:08 AM 08/31/2019 10:04 PM Full CPR in case of cardiopulmonary arrest Care Teams Commercial Loan Officer Relationship Specialty Start Date End Date Aruna Parkinson NEON SIGN MAKER [address] [place] [address] [address] [place] [address] PCP - General Family Medicine 02/17/24 Yoselin Partida MD [address] [place] [address] Referring Physician Rheumatology 02/17/24 Hong Grimaldo MD [address] [facility] [address] [facility] [address] [place] [address] Referring Physician Obstetrics and Gynecology 08/21/24
--- OUTSIDE RECORDS SUMMARY | 2024-11-26 17:12 | XMS_ITS | Patient Health Record ---
Author Organization [facility] Address [address] [place] [address] Care Team Providers Care Departmental Shipping Clerk Name Role Phone Mike Duron Unavailable [phone] Reason For Referral No Information Plan Of Treatment No Information Insurance Providers Payer Name Payer Address Payer Phone Subscriber Number Group Number Insured Name Patient Relationship to Insured Coverage Start Date Coverage End Date [facility] Treatment [facility] [address] [address] [place] [address] [id number] Alaina Meehan Self - patient is the insured
[2024-11-26] MEDS: TERBUTALINE SULFATE 1 MG/ML VIAL 0.25 MG SUB-Q (18:26)
--- NOTE | 2024-11-26 20:26 | OBADM ---
This patient, Alaina Meehan, admitted to the OB room OB Post 117 for observation. Patient/family oriented to hospital policies and general routines including ID bracelet, bed and alarms, visiting hours, pain management, procedures, bathroom and other care routines, personal items, smoking policy, room service/diet, and visiting hours. Patient/Family are encouraged to report perceived risks to care and to ask questions if they do not understand what they are told or what they should do.
--- NOTE | 2024-11-27 14:43 | PM.OBTRLD ---
OB - Triage/Final Diagnosis Visit Information Reason for evaluation: threatened labor Comments/Additional reasons for admission: I have assessed the risk for this patient, Alaina Meehan, and determined that she would benefit from observation care. Evaluation Vital signs: Vital Signs - 24 hr 11/26/24 17:46 11/26/24 18:00 11/26/24 18:16 Pulse Rate 99 104 H 115 H Blood Pressure 116/69 113/68 115/86 Oxygen Delivery 11/26/24 18:30 11/26/24 18:45 11/26/24 19:00 Pulse Rate 94 97 100 Blood Pressure 113/67 113/59 L 116/59 L Oxygen Delivery 11/26/24 19:16 11/26/24 19:30 11/26/24 19:45 Pulse Rate 99 92 94 Blood Pressure 112/56 L 114/65 107/63 Oxygen Delivery 11/26/24 20:00 11/26/24 20:15 11/26/24 20:25 Pulse Rate 93 93 93 Blood Pressure 106/63 111/62 Oxygen Delivery Room Air
== END 2024-11-26 20:48 | disposition home or self-care (01) ==
LOC: ANHOBPP 20:41 → ANHLDR 11-27 13:03 → ANHOBPP 11-27 13:03
PROVIDERS: Admitting Provider Obstetrics & Gynecology; PCP Family Medicine; Visit Provider Obstetrics & Gynecology
DX: O47.03 False labor before 37 completed weeks of gestation, third trimester (principal); Z3A.34 34 weeks gestation of pregnancy
CPT/HCPCS: G0378; G0379; J3105

== ENCOUNTER 2024-12-20 13:01 | Outpatient (RCR) | payer OTHER, SELFPAY ==
[2024-11-30 10:54] VITALS: BP 105/50; PULSE 76
[2024-12-11 12:36] VITALS: BP 111/68; PULSE 90
--- NOTE | ~2024-12-20 | US_ITS ---
EXAMINATION: US OB follow up DATE: 12/11/2024 13:24 INDICATION: Assess growth and estimate weight during third trimester TECHNIQUE: Real-time ultrasound of the pelvis was performed. The interpreting radiologist was not pre sent for the study. COMPARISON: None. FINDINGS: There is a single living fetus in vertex presentation. The placenta is anterior and not low-lying al though the region of the cervix is obscured by the skull. heart rate is 129 beats per min cahto (bpm). The amniotic fluid index is 15.1 cm, which is normal. (5th%-95%: 7.7-24.9 cm at 36 weeks estimated gestational age). The following biometric data were obtained: BPD: 8.8 cm -> 35 weeks 4 days Head circumference: 32.0 cm -> 36 weeks 0 days Abdominal circumference: 31.7 cm -> 35 weeks 4 days Femur length: 6.7 cm -> 34 weeks 4 days These measurements are concordant. Head circumference to abdominal circumference ratio: 1.01 (normal range 0.93-1.10). Estimated weight: 2660 g (+/-) 399 g or 5 lbs. 14 oz. (+/-) 14 oz. IMPRESSION: 1. Single living fetus in vertex presentation with heart rate of 129 bpm. 2. Gestational age by ultrasound of 35 weeks 3 day(s) +/- 2 week(s) 3 day(s) with ultrasound estimate d date of delivery (BAUDILIO) of 01/12/2025. Estimated weight is 30th percentile by Hadlock criteria when 01/07/25 is used as the BAUDILIO. Please correlate with clinical information or earlier ultrasounds for most accurate BAUDILIO. 3. Normal amniotic fluid index of 15.1 cm. Reviewed, dictated and finalized at location A. IMPRESSION: 1. Single living fetus in vertex presentation with heart rate of 129 bpm. 2. Gestational age by ultrasound of 35 weeks 3 day(s) +/- 2 week(s) 3 day(s) wi th ultrasound estimated date of delivery (BAUDILIO) of 01/12/2025. Estimated we ight is 30th percentile by Hadlock criteria when 01/07/25 is used as the BAUDILIO. Ple ase correlate with clinical information or earlier ultrasounds for most accurat e BAUDILIO. 3. Normal amniotic fluid index of 15.1 cm.
[2024-12-20 13:12] VITALS: BP 118/66; PULSE 100
[2024-12-20 13:32] VITALS: BP 118/66; PULSE 106
== END 2024-12-28 13:42 | disposition other institution (70) ==
LOC: ANHOBOP 13:01
PROVIDERS: PCP Family Medicine; Visit Provider Obstetrics & Gynecology
DX: O36.8330 Maternal care for abnormalities of the fetal heart rate or rhythm, third trimester, not applicable or unspecified (principal); Z3A.34 34 weeks gestation of pregnancy; D64.9 Anemia, unspecified; Z3A.36 36 weeks gestation of pregnancy; O09.213 Supervision of pregnancy with history of pre-term labor, third trimester; Z87.59 Personal history of other complications of pregnancy, childbirth and the puerperium; Z3A.37 37 weeks gestation of pregnancy
CPT/HCPCS: 59025; 76816

== ENCOUNTER 2024-12-27 15:16 | Inpatient (IN) | payer OTHER, SELFPAY ==
[2024-12-27] VITALS (87 sets, daily range): BP systolic 86–144; BP diastolic 46–84; PULSE 57–126; TEMP 36.4; O2SAT 81–100; BMI 31.2
--- OUTSIDE RECORDS SUMMARY | 2024-12-27 17:07 | XMS_ITS | Encounter Summary ---
Author Organization [facility] Address [address] [facility] [address] [place] [address] Phone Care Team Providers Care Dryer And Washer Mechanic Name Role Phone Jp Cristina Diaz DO Primary Care Provider [phone] Rayray Daily MD Unavailable [phone] No, Physician Primary Care Provider [phone] Aruna Parkinson NP Primary Care Provider Yoselin Partida MD Unavailable [phone] Hong Grimaldo MD Unavailable [phone] Reason for Visit * Reason Onset Date Comments P.A FOR ENBREL PLEASE 02/17/2023 Encounter Details Date Type Department Care Team (Late st Contact Info) Description 02/17/2023 Telephone [facility] Medicine Rheumatology [address] [facility] 5th [place] [address] [place] [address] Julianna Cleveland, RMA P.A FOR [...] or ex-partner? No 06/12/2021 Social Connection and Isolation Panel Answer Date Recorded In a typical week, how many times do you talk on the phone with family, friends, or neighbors? More than three times a week 01/01/2023 How often do you get togethe r with friends or relatives? More than three times a week 01/01/2023 How often do you attend [facility] or taoist services? Patient declined 01/01/2023 Do you belong to any clubs o r organizations such as pentecostalism groups, unions, fraternal or athletic groups, or [...] staff should administer the PHQ-9) 0 02/18/2023 [facility] Occupat ional Health - Occupational [...] place to sleep or slept in a penitentiary (including now)? No 01/01/2023 [place] Depression Scale Answer Date Recorded [place] Depression Scale Total 0 10/09/2019 The thought [...] on file Legal Sex Female 12:44 PM RETAIL AND PROMOTIONS COORDINATOR Gender Identity Female 07/29/2020 9:20 PM CDT Sexual Orientation Straight 07/29/2020 9: 20 PM CDT documented as of this encounter Plan of Treatment Not on file documented as of this encounter Visit Diagnoses Not on filedocumented in this encounter Care Teams Dryer And Washer Mechanic Relationship Specialty Start Date End Date Cristina Trammell DO PCP - General Family Medicine 01/25/18 02/10/24 No, Physician PCP - General 02/14/24 02/16/24 Aruna Parkinson, CLOUD AUTOMATION TESTER [address] [facility] [address] [place] [address] PCP - General Family Medicine 02/17/24 Rayray Daily MD [address] [facility] [address] [place] [address] Supervisor [employer] Shop Obstetrics and Gynecology 01/02/23 08/20/24 Yoselin Partida MD [address] [facility] [address] [place] [address] Referring Physician Rheumatology 02/17/24 Hong Grimaldo MD [address] [facility] [address] [place] [address] Referring Physician Obstetrics and Gynecology 08/21/24 documented as of this encounter
--- OUTSIDE RECORDS SUMMARY | 2024-12-27 17:07 | XMS_ITS | Clinical Summary ---
Author Organization [facility] Address [address] [place] [address] Care Team Providers Care Brass Reclaimer Name Role Phone Cristina Trammell DO Primary Care Provider [phone] Source Comments [facility],non-owned Affiliates and Associated Physician Practices is amultiple site organization consisting of ambulatory clinics and hospital sitesin [place], [place], [place] and [place]. This disclosure is being madepursuant to the Care Everywhere program and may not contain all information available regarding this patient. Last updated 18.[facility] Allergies Active Allergy Reactions Criticality Noted Date [...] NO MORE THAN 6/24 HRS 6 Active ferrous sulfate 325 (65 FE) MG tablet Take 1 tablet by mouth 2 times daily with morning and evening meal 100 tablet 4 0 Active adalimumab (HUMIRA) 40 MG/0.4ML injection Inject 0.4 mL subcutaneously every 14 days 2 Pen 11 0 Active Additional Information Patient not taking.Reason: Other, Reported on 10/30/2024 escitalopram (Lexapro) 20 MG tablet Take 1 (one) tablet by mouth once daily 90 tablet 1 Active Active Problems Problem Noted Date Diagnosed Date labor in third trimester without deliver y 10/30/2024 Seropositive rheumatoid arthritis 10/26/2017 Long-term use of immunosuppressant medication Encounter for therapeutic drug monitoring 2017 Estimated Date of Delivery Comme nts Yes 01/08/2025 Based on last me nstrual period of 04/03/2024 Encounters Date Type Department Care Team Description 11/02/2024 Telephone [facility] MATERNAL/ EVALUATION UNIT [address] [place] [address]. [address] [place] [address] Tessa Crowe RN Hospital Follow-up 10/31/2024 Telephone [facility] MATERNAL/ EVALUATION UNIT [address] [place] [address]. [address] [place] [address] Tessa Crowe RN Hospitalization 10/30/2024 8:26 PM CDT - 11/01/2024 1:50 PM CDT Hospital Encounter [facility] 5E ANTEPARTUM/MOTHER BABY [address] [place] [address] Jovany Epps MD E BUSINESS PROJECT MANAGER Discharge Disposition: Home or Self Care 10/30/2024 Travel from Last 3 Months Social History Tobacco Use Types Packs/Day Years Used Date Smoking Tobacco: Never Smokeless Tobacco: Never Overall Financial Resource Strain (CARDIA) Answe r Date Recorded How hard is it for you to pa y for the very basics like food, housing, medical care, and heating? Not hard at all 10/30/2024 [facility] of Occupat [...] any time in the past 12 m [facility], were you homeless or living in a senior care (including now)? No 10/30/2024 Estimated Date of Delivery Comme nts Yes 01/08/2025 Based on last me nstrual period of 04/03/2024 Sex and Gender Information Value Date Recorded Sex Assigned at Female 10/30/2024 11:30 PM CDT Legal Sex Female 5:36 AM CHOREOGRAPHY DIRECTOR Gender Identity Not on file Sexual Orientation [...] PM CDT Ordered by an unspecified provider. Scanned Document IMAGING Final Result * (ABNORMAL) GLUCOSE - POINT OF CARE (10/31/2024 10:24 AM CDT) Only the most recent of3 resultswithin the time period is included. Glucose WB/POC 124(H) 70 - 99 mg/dL 11/02/2024 12:31 AM CDT [facility] Specimen Type Arterial/C apillary 11/02/2024 12:31 AM CDT [facility] Blood BLOOD SPECIMEN / Unknown 10/31/2024 10:24 AM CDT 11/02/2024 12:31 AM CDT Jovany Epps MD LAB - POINT OF CARE ORDERABLES Final Result [facility] [address] [place], [place] [id number] * BLOOD TYPE VERIFICATION (10/30/2024 10:05 PM CDT) ABO Rh O POS 10/30/2024 10:32 PM CDT [facility] BLOOD BANK LAB Blood Bank BLOOD SPECIMEN / Unknown Lab Venipuncture / Unknown 10/30/2024 10:05 PM CDT 10/30/2024 10:09 PM CDT Jovany Epps MD LAB - BLOOD BANK ORDERABLES Fin al Result [facility] BLOOD BANK LAB [address] [place] [address], [facility] [phone] * TRICHOMONAS VAGINALIS PAYAM (10/30/2024 10:03 PM CDT) Trichomonas by PAYAM NEGATIVE NEGATIVE 10/31/2024 10:41 AM CDT [facility] MICROBIOLOGY Microbiology URINE / Unknown Collection / Unknown 10/30/2024 10:03 PM CDT 10/30/2024 10:17 PM CDT Narrative [facility] MICROBIOLOGY - 10/31/2024 10:41 AM CDT This test performed by Qualitative real-time Polymerase Chain Reaction (PCR). Jovany Epps MD LAB - MICROBIOLOGY ORDERABLES F inal Result Performing Organization Address City/Va Hospital/ZIP Co de Phone Number [facility] MICROBIOLOGY [address] [place] [address], [facility] [phone] * CHLAMYDIA AND N. GONORRHOEAE PAYAM (10/30/2024 10:03 PM CDT) Chlamydia by PAYAM NEGATIVE NEGATIVE 10/31/2024 10:41 AM CDT [facility] MICROBIOLOGY Neisseria gonorrhoeae PAYAM NEGATIVE NEGATIVE 10/31/2024 10:41 AM CDT [facility] MICROBIOLOGY Microbiology URINE / Unknown Collection / Unknown 10/30/2024 10:03 PM CDT 10/30/2024 10:17 PM CDT Narrative [facility] MICROBIOLOGY - 10/31/2024 10:41 AM CDT This test performed by Qualitative real-time Polymerase Chain Reaction (PCR). Jovany Epps MD LAB - MICROBIOLOGY ORDERABLES F inal Result Performing Organization Address City/Va Hospital/ZIP Co de Phone Number [facility] MICROBIOLOGY [address] [place] [address], [facility] [phone] * (ABNORMAL) URINALYSIS REFLEX MICROSCOPIC REFLEX CULTURE (10/30/2024 10:02 PM CDT) Color UA Colorless(A) Yellow, Straw 10/30/2024 10:23 PM CDT [facility] Clarity UA Clear Clear 10/30/2024 10:23 PM CDT [facility] Glucose UA Normal Normal 10/30/2024 10:23 PM CDT [facility] Bilirubin UA Negative Negative 10/30/2024 10:23 PM CDT [facility] Ketone UA 3+(A) Negative 10/30/2024 10:23 PM CDT [facility] Specific [place] UA 1.014 1.005 - 1.030 10/30/2024 10:23 PM CDT [facility] Blood UA Negative Negative 10/30/2024 10:23 PM CDT [facility] pH UA 5.5 5.0 - 8.0 10/30/2024 10:23 PM CDT [facility] Protein UA Negative Negative 10/30/2024 10:23 PM CDT [facility] Urobilinogen UA Normal Normal mg/dL 10/30/2024 10:23 PM CDT [facility] Nitrite UA Negative Negative 10/30/2024 10:23 PM CDT [facility] Leukocyte Esterase UA Negative Negative 10/30/2024 10:23 PM CDT [facility] Reflex Status Culture not indicated 10/30/2024 10:23 PM CDT [facility] Urine Microscopy Urine microscopy not indicated 10/30/2024 10:23 PM CDT [facility] Urine URINE SPECIMEN OBTAINED BY CLEAN CATCH PROCEDURE / Unknown Collection / Unknown 10/30/2024 10:02 PM CDT 10/30/2024 10:17 PM CDT Narrative [facility] - 10/30/2024 10:23 PM CDT us Jovany Epps MD LAB - URINALYSIS ORDERABLES Fin al Result [facility] [address] [place] [address] * (ABNORMAL) CULTURE STREP B (10/30/2024 10:01 PM CDT) Culture Strep B Growth of Streptococcus agalactiae (Group B)(AA) 11/01/2024 3:44 AM CDT [facility] MICROBIOLOGY Microbiology MISCELLANEOUS SAMPLES / Unknown Collection / Unknown 10/30/2024 10:01 PM CDT 10/30/2024 10:17 PM CDT Narrative [facility] MICROBIOLOGY - 11/01/2024 3:44 AM CDT Susceptibility testing of penicillin, other beta-lactam antibiotics, and vancomycin is not necessary for beta-hemolytic streptococci groups A,B,C and G because resistant strains have not been recognized. Jovany Epps MD LAB - MICROBIOLOGY ORDERABLES F inal Result [facility] MICROBIOLOGY [address] [place] [address], [facility] [phone] * TYPE + SCREEN PANEL (ALL [facility] except [facility]) (10/30/2024 9:09 PM CDT) ABO Rh O POS 10/30/2024 10:32 PM CDT [facility] BLOOD BANK LAB Comment:No history; collect retype. Antibody Screen NEG 10:32 PM CDT [facility]LOOD BANK LAB Blood Bank BLOOD SPECIMEN / Unknown Lab Venipuncture / Unknown 10/30/2024 9:09 PM CDT 10/30/2024 9:47 PM CDT Jovany Epps MD LAB - BLOOD BANK ORDERABLES Fin al Result Performing Organization Address City/Va Hospital/ZIP Co de Phone Number [facility] BLOOD BANK LAB [address] [place], [place] [id number] [place] [address] * (ABNORMAL) CBC W AUTO DIFFERENTIAL (10/30/2024 9:09 PM CDT) WBC 11.9(H) 4.0 - 10.7 x10E9/L 10/30/2024 9:55 PM CDT [facility] RBC Count 3.61(L) 3.90 - 5.20 x10E12/L 10/30/2024 9:55 PM CDT [facility] Hemoglobin 8.6(L) 11.9 - 15.8 g/dL 10/30/2024 9:55 PM CDT [facility] Hematocrit 28.4(L) 34.8 - 46.1 % 10/30/2024 9:55 PM CDT [facility] MCV 78.7(L) 80.0 - 98.0 fL 10/30/2024 9:55 PM CDT [facility] MCH 23.8(L) 26.7 - 33.6 pg 10/30/2024 9:55 PM CDT [facility] MCHC 30.3(L) 31.7 - 36.3 g/dL 10/30/2024 9:55 [facility] RDW-CV 13.8 11.3 - 14.8 % 10/30/2024 9:55 PM [facility] Platelet Count 193 150 - 420 x10E9/L 10/30/2024 9:55 PM [facility] MPV 11.2 7.8 - 11.4 fL 10/30/2024 9:[address] [facility] Neutrophil % 92.5(H) 41.0 - 74.0 % 10/30/2024 9:55 PM [facility] Lymphocyte % 5.3(L) 17.0 - 47.0 % 10/30/2024 9:55 PM [facility] Monocyte % 1.3(L) 3.0 - 11.0 % 10/30/2024 9:55 PM [facility] Eosinophil % 0.0 0.0 - 7.0 % 10/30/2024 9:[address] [facility] Basophil % 0.1 0.0 - 1.6 % 10/30/2024 9:55 PM [facility] Immature Granulocytes % 0.8 0.0 - 1.0 % 10/30/2024 9:55 PM [facility] Neutrophil Absolute 11.05(H) 1.60 - 7.50 x10E9/L 10/30/2024 9:55 PM CDT [facility] Lymphocyte Absolute 0.63(L) 1.00 - 4.40 x10E9/L 10/30/2024 9:55 PM CDT [facility] Monocyte Absolute 0.15 0.15 - 1.00 x10E9/L 10/30/2024 9:55 PM [facility] Eosinophil Absolute 0.00 0.00 - 0.60 x10E9/L 10/30/2024 9:55 PM CDT [facility] Basophil Absolute 0.01 0.00 - 0.13 x10E9/L 10/30/2024 9:55 PM CDT [facility] Blood BLOOD SPECIMEN / Unknown Lab Venipuncture / Unknown 10/30/2024 9:09 PM CDT 10/30/2024 9:47 PM CDT us Jovany Epps MD LAB - HEMATOLOGY ORDERABLES Fin al Result [facility] [address] [place] [address] * HEPATITIS SCREEN ACUTE (07/31/2013 11:58 AM CDT) Pathologist [facility] Hepatitis A Virus Antibody IgM NON-REACTI VE NON-REACT [facility] ([facility]) Hepatitis B Virus Surface Antigen NON-REACTI VE NON-REACT [facility] ([facility]) Hepatitis B Core Virus Antibody IgM NON-REACTI VE NON-REACT [facility] ([facility]) Hepatitis C Antibody NON-REACTI VE NON-REACT [facility] ([facility]) Signal/Cutoff 0.05 <1.00 [facility]) Comment: REPORT COMMENT: SPECIMEN TYPE->URINE Test Performed at: [facility] [id number] [place] [phone] KAY HANNA DO,MPH 07/31/2013 11:5 8 AM CDT 07/31/2013 12:00 PM CDT us Jackie Bach MD LAB - CHEMISTRY OR DERABLES Final Result Performing Organization Address City/Va Hospital/ZIP Co de Phone Number [facility] [phone] from Last 3 Months or Most Recently Relevant to Health Maintenance Insurance [facility] [place] [address] HEALTH PLAN Advance Directives * Full Code (Latest Code Status on File) Date Activated Date Inactivated Comments 10/30/2024 8:40 PM 11/01/2024 2:54 PM Care Teams Brass Reclaimer Relationship Specialty Start Date End Date Cristina Trammell DO PCP - General Family Medicine 10/24/18
--- OUTSIDE RECORDS SUMMARY | 2024-12-27 17:07 | XMS_ITS | Clinical Summary ---
Author Organization [facility] Address [address] [place] [phone] Phone Care Team Providers Care Real Estate Acquisition Analyst Name Role Phone Unavailable Primary Care Provider Unavailabl e Encounters Date Type Department Care Team Description 12/19/2024 External Device Data [facility] ABSTRACTION Provider, Abstract 12/19/2024 External Device Data [facility] ABSTRACTION Provider, Abstract 12/05/2024 External Device Data [facility] ABSTRACTION Provider, Abstract 11/15/2024 External Device Data [facility] ABSTRACTION Provider, [...] or Tdap) 01/03/2033 01/03/2023, 06/19/2019, 02/26/2016 Insurance [facility] OPEN ACCESS HMO
--- OUTSIDE RECORDS SUMMARY | 2024-12-27 17:07 | XMS_ITS | Clinical Summary ---
Author Organization [facility] Address [address] [place] [address] Care Team Providers Care Search Developer Name Role Phone Aruna Parkinson NP Primary Care Provider Yoselin Partida MD Unavailable [phone] Hong Grimaldo MD Unavailable Allergies Active Allergy Reactions Criticality Noted Date Comments Cefaclor Hives,Other (See comments) Medium Reaction: Hives, , Reaction: Hives, Sulfamethoxazole Hives Medium Reaction: Hives, Sulfamethoxazole-Trimethop rim Other (See comments) Reaction: Hives, Trimethoprim Hives Medium Reaction: Hives, Medications vit 72-xbof-vnapa-dh a 27mg iron- 800 mcg-250 mg capsule [...] AM CDT): -chronic, controlled -patient currently takes Fanpwwtho-plnxezsalybkc-hiwxrbzw [id number] mg q.4 as needed -patient reports having migraine headache 2-3 migraine headaches a month which can last multiple hours to a couple of days at a time -encourage patient to use p.r.n. migraine medication if needs so -continue current treatment plan Assessment & Plan (02/17/2024 10:42 PM CDT): -chronic, not at goal -patient currently takes Rkthqgjks-ijsrhlqtoibcm-yzdutsti [id number] mg q.4 as needed -patient reports having [...] needed Assessment & Plan (06/25/2023 1:59 PM INSIDE SALES COORDINATOR): Doxycycline twice daily for 21 days Diflucan [...] plan Assessment & Plan (04/19/2023 10:51 AM INSIDE SALES COORDINATOR): Labs ordered, will follow. Patient can not [...] plan Assessment & Plan (04/19/2023 10:49 AM INSIDE SALES COORDINATOR): Stable. Cont. Current prescription medications, Lexapro. Assessment [...] 12:33 PM CDT): On Humira, managed by counter checker. Cont current mgmt. Assessment & Plan (09/30/2018 [...] Type Department Care Team Description 10/31/2024 Telephone [facility] [address] [place] [phone] Daphne Eng MA from Last 3 Months Immunizations Immunization Administration [...] Paternal Half-Sister Colon cancer Neg Hx no alarm installer cancer Relation Name Status Comments Father Alive [...] do you attend [facility] or cheondoism services? Patient declined 01/01/2023 Do you belong to any clubs o r organizations such as yarsani groups, unions, fraternal or athletic groups, or [...] staff should administer the PHQ-9) 0 08/21/2024 [facility] of Occupat ional Health - Occupational Stress [...] in a intermediate (including now)? No 01/01/2023 Sterling Depression Scale Answer Date Recorded Sterling Depression Scale Total 0 10/09/2019 The thought [...] on file Legal Sex Female 12:44 PM INSIDE SALES COORDINATOR Gender Identity Female 07/29/2020 9:20 PM [...] Estimated Date of Delivery 06/23/2024 - Present (12/27/2024) 01/08/2025 (set by Rayray Daily MD on 06/23/2024 based on Last Menstrual Period on 04/03/2024 (Exact Date)) Dating Summary Based On BAUDILIO GA Diff Last Menstrual Period on 04/03/2024 (Exact Date) 01/08/2025 Working Ultrasound on 06/08/2024 01/07/2025 +1d GA:9w4d Vitals Pregravid Weight Height TWG (As of 12/27/2024) Pregrav id BMI 160 cm (5' 3) Date GA Fund Present FHR Mvmt BP Weight Edema Alb Glu Ket Dil/ Eff/Sta 5 11w4d 118/76 62.6 kg (138 lb) 0/0/ Notes Progress Notes - Office Visi t - 06/23/2024 - GA:11w4d 06/23/2024 - 11w4d - Rayray Daily MD Initial OB Visit Subjective: Alaina Mijares is a 33 y.o., at 11w4d, based [...] Spinal/Epidural N Living 8 9 Name: MARGARET MIJARES Location: This Facility Delivering Clinician: Abi Gonzales MD 5 Term 01/01/23 39w1d / 0h 14m 3.58 kg (7 lb 14.3 oz) M Vaginal Epidural N Living 8 9 Name: MARGARET MIJARES Complications: Precipitous Labor (<3 hours) Location: This [...] Date End Date Taking? Authorizing Provider vit 17-btum-qdwyy-dha 27mg iron- 800 mcg-250 mg capsule Take by mouth Yes Provider, MD Chichi pdovnvivvf-jeuuwyuvldlwv-ohmwnacg (ESGIC) 50-325-40 mg per tablet Take 1 tablet by mouth every 4 (four) hours as needed for headaches Patient not taking: Reported on 06/23/2024 02/17/24 Aruna Parkinson, GRAVITY PROSPECTING OPERATOR HELPER escitalopram (LEXAPRO) 10 mg tablet Take 1 tablet (10 mg total) by mouth every morning 06/23/24 06/23/25 Rayray Daily MD amitriptyline (ELAVIL) 25 mg tablet Take 1 tablet (25 mg total) by mouth nightly Patient not taking: Reported on 06/23/2024 03/02/24 06/23/24 Aruna Parkinson, RIK escitalopram (LEXAPRO) 20 mg tablet Take 1 tablet (20 mg total) by mouth every morning Patient not taking: Reported on 06/23/2024 02/17/24 06/23/24 Aruna Parkinson, RIK etanercept (ENBREL) 50 mg/mL (1 mL) pen [...] cancer Other Colon cancer Neg Hx no alarm installer cancer 06/12/21 Social History Tobacco Use Smoking [...] meds. Problem list reviewed and updated: LMP 12-2-24 Problems (from 06/23/24 to present) No problems associated with this episode. Plan: vitamin with DHA discussed Labs ordered Discussed genetic testing - patient declines Genetic counseling declined Carrier screening offered. I reviewed exercise, diet, medications, precautions. Also, see checklist. Follow up in 4 weeks. Rayray Daily MD 06/23/2024 DE SALES COORDINATOR Last Filed Vital Signs Vital Sign Reading [...] HEPATITIS C ANTIBODY Routine 06/23/2024 10:45 AM INSIDE SALES COORDINATOR Encounter for supervision of other normal in first trimester PAP AND HIGH RISK HPV, REFLEX TO GENOTYPING Routine 07/03/2022 2:38 PM INSIDE SALES COORDINATOR Encounter for supervision of other normal in first trimester from Last 3 Months or Most Recently Relevant to Health Maintenance Results * Hepatitis C antibody Blood (06/23/2024 10:45 AM INSIDE SALES COORDINATOR) Hep C Ab Nonreactive Nonreactive Comment: Interpretive [...] last revised on 2019. Testing performed by: [facility], [address] [place] [address], [place]., [address] Blood 06/23/2024 10:4 5 AM INSIDE SALES COORDINATOR 06/23/2024 4:37 PM INSIDE SALES COORDINATOR us Rayray Daily MD LAB MICROBIOLOGY - GENERAL ORDERABLES Final Result [facility] [address] [facility] Department [place] [address] * Pap and High Risk HPV, reflex to Genotyping (07/03/2022 2:38 PM INSIDE SALES COORDINATOR) CLINICAL INFORMATION: [facility] Comment: LMP [facility] Comment:04/02/2022 Previous Pap [facility][1] Comment:NONE GIVEN Prev. Bx [facility][1] Comment:NONE GIVEN SOURCE: [facility][1] Comment:Cervix, Endocervix Pap, specimen adequacy [facility][1] Comment: Satisfactory for evaluation. Endocervical/transformation zone component present. HPV interp [facility][1] Comment:Negative for intraep ithelial lesion or malignancy. Embroidery Specialist Que [facility] Comment: MLO, CT(ASCP) CT screening location: [place] [address] Administration JUAN MANUEL [place] [address] Review media clerk [facility][1] Comment: SCALES, CT(ASCP) CT Screening location: [facility] Administration JUAN MANUEL [place] [address] Comment [facility][1] Comment: EXPLANATORY NOTE: The Pap is a [...] Not Detected NOT DETECTED Blair Farrar /Nella CHURCHILL Comment: Not Detected High Risk HPV types (16,18,31,33,35,39,45,51,52, 56,58,59,66,68) were not detected. Other HPV types which cause anogenital lesions may be present. The significance of the other types of HPV in malignant processes has not been established. Methodology: Real Time PCR Thin prep 07/03/2022 2:38 PM INSIDE SALES COORDINATOR 07/06/2022 6:35 AM INSIDE SALES COORDINATOR Rayray Daily MD LAB CYTOLOGY ORDERABLES Fi nal Result [facility] [address] [address] JUAN MANUEL [place] [phone] Blair Farrar/[place] [address] [facility] K[place] [phone] from Last 3 Months or Most Recently Relevant to Health Maintenance [place] [email or web address] [place] [facility] OPEN ACCESS Advance Directives For more information, please contact: [phone] * Full Code (Latest Code Status on File) Date Activated Date Inactivated Comments 01/01/2023 6:31 AM 01/03/2023 10:30 PM Full CPR in c ase of cardiopulmonary arrest * Full Code Date Activated Date Inactivated Comments 08/30/2019 8:08 AM 08/31/2019 10:04 PM Full CPR in case of cardiopulmonary arrest Care Teams Search Developer Relationship Specialty Start Date End Date Aruna Parkinson GRAVITY PROSPECTING OPERATOR HELPER [address] [place] [address] PCP - General Family Medicine 02/17/24 Yoselin Partida MD [address] [place] [address] Referring Physician Rheumatology 02/17/24 Hong Grimaldo MD [address] [place] [address] Referring Physician Obstetrics and Gynecology 08/21/24
--- OUTSIDE RECORDS SUMMARY | 2024-12-27 17:07 | XMS_ITS | Encounter Summary ---
Author Organization [facility] Address [address] [place] [address] Care Team Providers Care Fleet Service Manager Name Role Phone Cristina Trammell DO Primary Care Provider [phone] Reason for Visit * Reason Onset Date Comments MEDICATION REFILL 08/23/2018 Encounter Details Date Type Department Care Team (Late st Contact Info) Description 08/23/2018 Refill [facility] [address] [place] [address] Breann Plascencia MD [address] OF RHEUMATOLOGY [place], [place] [id number] MEDICATION REFILL Social History Tobacco Use Types Packs/Day Years Used Date Smoking Tobacco: Never Smokeless Tobacco: Never Comments Unknown Sex and Gender Information Value Date Recorded Sex Assigned at Female 10/30/2024 11:30 PM CDT Legal Sex Female 5:36 AM SAFETY DEPOSIT SUPERVISOR Gender Identity Not on file Sexual [...] on filedocumented in this encounter Care Teams Fleet Service Manager Relationship Specialty Start Date End Date Cristina Trammell DO PCP - General Family Medicine 10/24/18 documented as of this encounter
--- OUTSIDE RECORDS SUMMARY | 2024-12-27 17:07 | XMS_ITS | Clinical Summary ---
Author Organization [facility] Address [address] [place] [address] Phone Care Team Providers Care Medical Director Name Role Phone Provider, None Primary Care [...] on file Legal Sex Female 9:56 AM SALES REPRESENTATIVE ADDING MACHINES Gender Identity Not on file Sexual Orientation Not on file Last Filed Vital Signs Vital Sign Reading Time Taken Comments Blood Pressure 116/70 05/06/2020 10:46 AM SALES REPRESENTATIVE ADDING MACHINES Pulse 83 05/06/2020 10:46 AM SALES REPRESENTATIVE ADDING MACHINES Temperature 35.8 C (96.4 F) 05/06/2020 10:46 AM SALES REPRESENTATIVE ADDING MACHINES Respiratory Rate 16 05/06/2020 10:46 AM SALES REPRESENTATIVE ADDING MACHINES Oxygen Saturation 98% 05/06/2020 10:46 AM SALES REPRESENTATIVE ADDING MACHINES Inhaled Oxygen Concentration - - Weight 62.6 kg (138 lb) 05/06/2020 10:46 AM SALES REPRESENTATIVE ADDING MACHINES Height - - Body Mass Index - - Plan of Treatment Health Maintenance Due Date Last Done Comments Hepatitis C Virus (HCV) Screening 1990 Hepatitis B Immunization (1 of 3 - 19+ 3-dose series) 2009 Pap Smear 08/26/2011 Human Papillomavirus (HPV) Immunization (1 - 3-dose SCDM series) 2017 Cervical Cancer Screening (CCS) 2020 HPV/Cotest 2020 [...] patient's age to complete this topic Insurance [facility] Care Teams Medical Director Relationship Specialty Start Date End Date Provider, None [place] PCP - General 05/06/20
--- OUTSIDE RECORDS SUMMARY | 2024-12-27 17:07 | XMS_ITS | Encounter Summary ---
Author Organization [facility] Address [address] [place] [address] Care Team Providers Care Crusher Operator Name Role Phone Cristina Trammell DO Primary Care Provider [phone] Reason for Visit * Reason Onset Date Comments MEDICATION REFILL 08/26/2018 Encounter Details Date Type Department Care Team (Late st Contact Info) Description 08/26/2018 Refill [facility] [address] [place] [address] Breann Plascencia MD [address] [address] MEDICATION REFILL Social History Tobacco Use Types Packs/Day Years Used Date Smoking Tobacco: Never Smokeless Tobacco: Never Comments Unknown Sex and Gender Information Value Date Recorded Sex Assigned at Female 10/30/2024 11:30 PM CDT Legal Sex Female 5:36 AM SALES REPRESENTATIVE [employer] Gender Identity Not on file Sexual Orientation Not on file documented as of this encounter Plan of Treatment Not on file documented as of this encounter Visit Diagnoses Not on filedocumented in this encounter Care Teams Crusher Operator Relationship Specialty Start Date End Date Cristina Trammell DO PCP - General Family Medicine 10/24/18 documented as of this encounter
[2024-12-27 17:40] LABS: Hematocrit 30.0 % (37.0-47.0); Hemoglobin 8.7 g/dL (12.0-15.0); Immature Granulocyte Percent A 0.5 % (0-0.5); Lymphocytes Absolute Auto 1.87 K/mm3 (0.9-3.2); Mean Corpuscular HGB Conc 29.0 g/dl (32-36); Mean Corpuscular Hemoglobin 21.3 pg (26-34); Mean Corpuscular Volume 73.3 fl (80-100); Nucleated Red Blood Cells Absolute Auto 0.000 K/mm3 (0.0-0.012); Nucleated Red Blood Cells Perc 0.0 % (0.0-0.2); Platelet Count Result 199 k/mm3 (150-375); Red Blood Count 4.09 M/mm3 (4.2-5.4); White Blood Count 10.3 K/mm3 (4.5-10.0)
--- NOTE | 2024-12-27 17:51 | LDADM ---
This patient, Alaina Meehan, was admitted to Labor/Delivery/Recovery 106 on 12/27/24 at 15:16. Plans for labor, pain management and were discussed with patient. Patient/family oriented to hospital policies and general routines including ID bracelet, bed and alarms, visiting hours, pain management, procedures, bathroom and other care routines, personal items, smoking policy, room service/diet and guest tray routines, infant security routines, and visiting hours. Patient/Family are encouraged to report perceived risks to care and to ask questions if they do not understand what they are told or what they should do. See OBIX for further documentation.
[2024-12-27 18:13] LABS: Band Neutrophils Percent 0 % (0-6); Hypochromasia 1+; Microcytosis 1+ (NORMAL); Schistocytes None Seen
[2024-12-27 18:14] LABS: Anisocytosis 2+
[2024-12-27] MEDS: LACTATED RINGERS 1,000 ML 125 ML IV CONT ×2 (18:28→20:24)
[2024-12-27] MEDS: VANCOMYCIN 1,500 MG/NS 500 ML 1,500 MG/500 ML BAG 250 MG IVPB (18:28)
[2024-12-27 18:35] LABS: Syphilis IgG/IgM Antibody Non-Reactive (Nonreactive)
[2024-12-27 18:48] LABS: HIV 1/2 Ab P24 Ag Result Negative (Negative)
--- NOTE | 2024-12-27 19:53 | P.PNAN_ITS ---
Anes - Eval Pre Procedure Procedure: Labor Epidural Date/Time: 12/27/24 19:53 Surgeon: Re Preop Diagnosis: Labor Pain Pre Op Diagnosis: Early Labor/Multip/Advanced Dilation Patient Data Age: 34 Gender: F Height: 1.6 m Weight: 80 kg Last Vital Signs Pulse 91 12/27/24 19:30 BP 132/75 12/27/24 19:30 O2 Del Method Room Air 12/27/24 17:45 Allergies Allergy/AdvReac Type Severity Reaction Status Date / Time cefaclor Allergy Mild Hives / Verified 12/27/24 17:45 Red Face sulfamethoxazole Allergy Mild Hives / Verified 12/27/24 17:45 Red Face trimethoprim Allergy Mild Hives / Verified 12/27/24 17:45 Red Face Home Medications ?Medication ?Instructions ?Recorded ?Confirmed ?Type docosahexaenoic acid 200 mg 200 mg PO DAILY 10/18/24 0 12/27/24 History capsule ( DHA) escitalopram oxalate 20 mg tablet 20 mg PO DAILY 12/1112/27/24 History Laboratory Tests 12/27/24 17:31 WBC 10.3 H K/mm3 (4.5-10.0) RBC 4.09 L M/mm3 (4.2-5.4) Hgb 8.7 L g/dL (12.0-15.0) Hct 30.0 L % (37.0-47.0) MCV 73.3 L fl (80-100) MCH 21.3 L pg (26-34) MCHC 29.0 L g/dl (32-36) RDW 16.1 H % (11.5-14.5) Plt Count 199 k/mm3 (150-375) MPV 10.8 H fl (7.4-10.4) Immature Gran % (Auto) 0.5 % (0-0.5) Neut % (Auto) 73.9 H % (45.5-73.1) Lymph % (Auto) 18.1 L % (18.3-44.2) [place] % (Auto) 6.4 % (2.6-8.5) Eos % (Auto) 0.9 % (0-4.4) Baso % (Auto) 0.2 % (0.2-1.2) Lymph # (Auto) 1.87 K/mm3 (0.9-3.2) [place] # (Auto) 0.7 H K/mm3 (0.1-0.6) Eos # (Auto) 0.1 K/mm3 (0-0.3) Baso # (Auto) 0.0 K/mm3 (0.0-0.1) Abs Immat Gran (auto) 0.05 H K/mm3 (0.00-0.031) Absolute Neuts (auto) 7.6 H K/mm3 (1.3-6.7) Absolute Nucleated RBC 0.000 K/mm3 (0.0-0.012) Band Neutrophils % 0 % (0-6) Nucleated RBC % 0.0 % (0.0-0.2) Platelet Estimate Adequate (Adequate) Hypochromasia 1+ Anisocytosis 2+ Microcytosis 1+ (NORMAL) Schistocytes None seen Syphilis IgG/IgM Ab Non-reactive (Nonreactive) HIV 1&2 Ab/P24 Ag 4thGn Negative (Negative) Blood Type O Positive Antibody Screen Negative Patient hx anesthesia problems: none Family hx anesthesia problems: none Results Review: All pre-operative results and documents have been reviewed as part of the pre- operative evaluation. [facility] Past Medical History Medical History Rheumatoid arteritis Headache Anxiety Anemia Family History Family History Mother Depression Rheumatoid arthritis Grandparent Cancer Social History Social History Smoking status: Never smoker Substance use: never Do You Feel Safe in your Home?: Yes Lack of Transportation: No Lack of Food: Never True Current Housing: I Have Housing Concerned About Future Housing: No Difficulty Paying Gas/Electric Bills: No Difficulty Paying for Meds: No Currently Unemployed: No Education: Trade/Vocational Certificate Difficulty w/ Childcare or Family Care: No Spiritual care concerns: No Exam Day of Procedure 12/27/24 19:53 Patient weight: normal Heart: regular rate and rhythm Lungs: normal air movement Airway: Mallampati scale class II Neurological: alert and oriented
--- NOTE | 2024-12-27 20:59 | P.HP_ITS ---
H&P: HPI History of Present Illness Date/Time: 12/27/24 20:59 Chief Complaint: contractions Narrative: 34 y/o at 38 weeks admitted for labor. She started having contractions approximately 2pm. Her cervix was 5 at office visit. The week prior to that she was 3.5. She was sent to [facility] and was luiza. She was admitted for labor. PNC signicant for pos GBS. She has an allergy to Cephalexin. She has a h /o labor during this . Review of Systems Review of Systems: All systems reviewed & are unremarkable except as noted in HPI and below Constitutional: Constitutional: Reports no additional constitutional complaints and Denies headache(s) Eyes: Eyes: Denies spots in vision ENT: Reports system reviewed and no additional complaints, except as documented and Denies headache(s) Cardiovascular: Cardiovascular: Denies chest pain and Denies dyspnea Respiratory: Respiratory: Denies dyspnea Gastrointestinal: Gastrointestinal: Reports no additional gastrointestinal complaints Genitourinary: Genitourinary: Reports amenorrhea Musculoskeletal: Musculoskeletal: Reports no additional musculoskeletal comp laints Integumentary/Breasts: Skin/Breast: Denies breast mass and Denies rash Neurologic: Denies headache(s) Psychiatric: Psychiatric: Reports no additional psychiatric complaints [facility] Past Medical History Medical History Rheumatoid arteritis Headache Anxiety Anemia Family History Family History Mother Depression Rheumatoid arthritis Grandparent Cancer Social History Social History Smoking status: Never smoker Substance use: never Do You Feel Safe in your Home?: Yes Lack of Transportation: No Lack of Food: Never True Current Housing: I Have Housing Concerned About Future Housing: No Difficulty Paying Gas/Electric Bills: No Difficulty Paying for Meds: No Currently Unemployed: No Education: Trade/Vocational Certificate Difficulty w/ Childcare or Family Care: No Spiritual care concerns: No Meds Home Medications and Allergies Home Medications ?Medication ?Instructions ?Recorded ?Confirmed ?Type docosahexaenoic acid 200 mg 200 mg PO DAILY 10/18/24 0 12/27/24 History capsule ( DHA) escitalopram oxalate 20 mg tablet 20 mg PO DAILY 12/1112/27/24 History Allergies Allergy/AdvReac Type Severity Reaction Status Date / Time cefaclor Allergy Mild Hives / Verified 12/27/24 17:45 Red Face sulfamethoxazole Allergy Mild Hives / Verified 12/27/24 17:45 Red Face trimethoprim Allergy Mild Hives / Verified 12/27/24 17:45 Red Face Vital Signs Vital Signs - 24 hr 12/27/24 17:45 12/27/24 18:33 12/27/24 19:00 Pulse Rate 70 85 Blood Pressure 119/78 122/69 Pulse Oximetry Oxygen Delivery Room Air 12/27/24 19:30 12/27/24 19:54 12/27/24 19:57 Pulse Rate 91 88 Blood Pressure 132/75 133/79 Pulse Oximetry 100 Oxygen Delivery 12/27/24 19:59 12/27/24 20:00 12/27/24 20:04 Pulse Rate 102 H Blood Pressure 144/75 H Pulse Oximetry 100 100 Oxygen Delivery 12/27/24 20:05 12/27/24 20:07 12/27/24 20:09 Pulse Rate 104 H 94 Blood Pressure 136/79 132/84 Pulse Oximetry 94 Oxygen Delivery 12/27/24 20:11 12/27/24 20:12 12/27/24 20:14 Pulse Rate 94 89 Blood Pressure 134/64 122/69 Pulse Oximetry 100 Oxygen Delivery 12/27/24 20:15 12/27/24 20:17 12/27/24 20:19 Pulse Rate 83 88 Blood Pressure 118/62 119/64 Pulse Oximetry 100 Oxygen Delivery 12/27/24 20:20 12/27/24 20:22 12/27/24 20:24 Pulse Rate 81 86 Blood Pressure 120/69 119/64 Pulse Oximetry 100 Oxygen Delivery 12/27/24 20:25 12/27/24 20:27 12/27/24 20:29 Pulse Rate 90 88 Blood Pressure 119/70 124/64 Pulse Oximetry 100 Oxygen Delivery 12/27/24 20:30 12/27/24 20:32 12/27/24 20:34 Pulse Rate 90 78 Blood Pressure 126/73 122/67 Pulse Oximetry 100 Oxygen Delivery 12/27/24 20:35 12/27/24 20:38 12/27/24 20:39 Pulse Rate 77 82 Blood Pressure 128/69 131/65 Pulse Oximetry 100 Oxygen Delivery 12/27/24 20:40 12/27/24 20:42 12/27/24 20:44 Pulse Rate 77 79 Blood Pressure 111/67 110/59 L Pulse Oximetry 100 Oxygen Delivery 12/27/24 20:45 12/27/24 20:47 12/27/24 20:49 Pulse Rate 74 82 Blood Pressure 120/54 L 109/66 Pulse Oximetry 100 Oxygen Delivery 12/27/24 20:50 12/27/24 20:54 Pulse Rate 73 Blood Pressure 116/50 L Pulse Oximetry 100 Oxygen Delivery Exam Const: General: no acute distress Eyes: General: appearance normal, both eyes and all related structures Resp: Effort & Inspection: normal respiratory effort Cardio: Rate: regular rate GI: Other: Gravid no fundal tenderness no right upper quadrant pain : Other: cervix 5/75/-2 Skin: General skin exam: no rashes or lesions noted Neuro: Cognition (Neuro): normal cognition Extrem: General: normal to inspection Psych: Mental Status: mental status grossly normal H&P: Results Labs Labs: Short CBC 12/27/24 Range/Units 17:31 WBC 10.3 H (4.5-10.0) K/mm3 Hgb 8.7 L (12.0-15.0) g/dL Hct 30.0 L (37.0-47.0) % Plt Count 199 (150-375) k/mm3 Assessment and Plan Assessment and plan (1) Labor without complication: Code(s): O80 - Encounter for full-term uncomplicated delivery Status: Acute Assessment and Plan: Admit. Vancomycin for GBS carrier. Pitocin for augmentation if needed.
[2024-12-27] MEDS: OXYTOCIN 30 UNITS/NS 500 ML 30 UNITS/500 ML BAG IV CONT (23:03)
[2024-12-28] VITALS (83 sets, daily range): BP systolic 105–128; BP diastolic 53–72; PULSE 58–129; RESP 14–18; TEMP 36.5–37.1; O2SAT 89–100
--- NOTE | 2024-12-28 02:27 | P.PNOB_ITS ---
OB - PN: Subj Subjective Date/time seen: 12/27/24- 2022 Cat 1, AROM, /-2, clear fluid OP. OB - PN: Obj Data Labs 12/27/24 17:31 Labs: Laboratory Results - last 24 hr 12/27/24 17:31 WBC 10.3 H RBC 4.09 L Hgb 8.7 L Hct 30.0 L MCV 73.3 L MCH 21.3 L MCHC 29.0 L RDW 16.1 H Plt Count 199 MPV 10.8 H Immature Gran % (Auto) 0.5 Neut % (Auto) 73.9 H Lymph % (Auto) 18.1 L [place] % (Auto) 6.4 Eos % (Auto) 0.9 Baso % (Auto) 0.2 Lymph # (Auto) 1.87 [place] # (Auto) 0.7 H Eos # (Auto) 0.1 Baso # (Auto) 0.0 Abs Immat Gran (auto) 0.05 H Absolute Neuts (auto) 7.6 H Absolute Nucleated RBC 0.000 Band Neutrophils % 0 Nucleated RBC % 0.0 Platelet Estimate Adequate Hypochromasia 1+ Anisocytosis 2+ Microcytosis 1+ Schistocytes None seen Syphilis IgG/IgM Ab Non-reactive HIV 1&2 Ab/P24 Ag 4thGn Negative Blood Type O Positive Antibody Screen Negative OB - PN A/P Time Spent With Patient Time: Total time spent is greater than 50% in coordination of care (as documented) at patient's floor/unit and/or counseling patient:
--- NOTE | 2024-12-28 02:28 | PM.OBPRVD ---
OB - Vaginal Delivery Note Procedure Delivery date: 12/28/24 Events: Positive Group B Strep (GBS) and Other ( labor) Delivery augmentation: Rupture of Membranes and Pitocin Delivery monitor: External FHT Route of delivery: Episiotomy description: None Specimen: No Quantitative Blood Loss (ml): 150 Anesthesia type: Epidural Disposition: Floor Complications: No immediate complications Narrative: She was admitted in labor. She had subsequent AROM. Her contractions decreased and no cervical change and had Pitocin augmentation. She dilated to complete. She pushed once and delivered a female infant over intact perineum. Nose and mouth suctioned with bulb. Pitocin started. Placenta delivered. Trailing membranes and the placenta was inspected and there was an area of membranes that appeared serrated. The cavity was swept and small amount of adherent membranes at lower segment was obtained. No further membranes or placenta palpated. Uterine tone normal. Minimal lochia. [place] Baby Date of : 12/28/24 Time of : 02:04 Gestational Age by Date: 38 gender: Female presentation: vertex position: Right Occiput Anterior Placenta delivery description: Spontaneous and Uterine Exploration Cord Vessel Description: 3 Vessels, Clamped/Cut and Delayed Cord Clamping score one minute: 9 score five minutes: 9
--- NOTE | 2024-12-28 02:34 | P.DS_ITS ---
DS: Admitting Diagnosis Discharge Date 12/29/24 Admitting Diagnosis Labor DS: Discharge Diagnosis Discharge Diagnosis (1) Vaginal delivery: Code(s): O80 - Encounter for full-term uncomplicated delivery Status: Acute OB - DS: Summary Hospital Course Hospital Course: She was admitted in labor. She had an uncomplicated vaginal delivery. She did well . OB Procedures : Ultrasound OB Procedures Intrapartum: Spontaneous Vag Delivery OB Procedures: : None Peripartum Data Delivery Method: Natural Vaginal Episiotomy description: None complications: none Status at Discharge Functional status at discharge: independent ambulation Time Spent with Patient Time attestation: Total time spent providing and/or coordinating discharge services: Exam Const: General: cooperative Orientation/consciousness: oriented to person, oriented to place and oriented to time HENMT: Face/Nose/Sinus: Normal external nose present Eyes: General: appearance normal, both eyes and all related structures Resp: Effort & Inspection: normal respiratory effort GI: Inspection: normal to inspection Skin: General skin exam: normal color Neuro: General: oriented to person, oriented to place and oriented to time Extrem: General: normal to inspection and no calf tenderness Psych: Appearance: grossly normal Mental Status: mental status grossly normal DS: Data Data Completed and Pending Labs on day of discharge: Labs from last 24 hours 12/27/24 17:31 WBC 10.3 H RBC 4.09 L Hgb 8.7 L Hct 30.0 L MCV 73.3 L MCH 21.3 L MCHC 29.0 L RDW 16.1 H Plt Count 199 MPV 10.8 H Immature Gran % (Auto) 0.5 Neut % (Auto) 73.9 H Lymph % (Auto) 18.1 L [place] % (Auto) 6.4 Eos % (Auto) 0.9 Baso % (Auto) 0.2 Lymph # (Auto) 1.87 [place] # (Auto) 0.7 H Eos # (Auto) 0.1 Baso # (Auto) 0.0 Abs Immat Gran (auto) 0.05 H Absolute Neuts (auto) 7.6 H Absolute Nucleated RBC 0.000 Band Neutrophils % 0 Nucleated RBC % 0.0 Platelet Estimate Adequate Hypochromasia 1+ Anisocytosis 2+ Microcytosis 1+ Schistocytes None seen Syphilis IgG/IgM Ab Non-reactive HIV 1&2 Ab/P24 Ag 4thGn Negative Blood Type O Positive Antibody Screen Negative Discharge Plan Discharge Attending physician on discharge: Hong Grimaldo Consulting providers: Carmenza Pierre; Carmencita Scott Discharging Clinician: Hong Grimaldo Patient Disposition: Home Activity: may shower and pelvic rest Diet: regular Discharge Instructions: Education: Mom and Baby Guide Given to: Mother Follow-Up: Call your delivering provider's office for an appointment to be seen in: Call office for an appointment Mom and baby should come to the [facility] for the follow-up appointment. Appointment Date/Time: December 30, 2024 at 10:00 am What to expect at your follow-up visit: Physical Assessment Call [phone] if you are unable to keep your appointment time. BREAST CARE: * Wear a snug supportive bra. * For engorgement discomfort: Bottle Feeding: * May apply ice packs EPISIOTOMY/PERINEAL CARE: * Until bleeding stops, use your yoni bottle after urinating * Change your pad frequently throughout the day * You may take sitz baths several times a day (fill your bathtub with warm water and soak for 20 minutes.) Do NOT bathe in the water * No tub baths until seen by your physician - You may shower ACTIVITY: * Rest as much as possible. * Do not exercise or lift anything heavier than your baby (such as laundry or other children.) * Avoid stairs or driving as much as possible. * Do not put anything into the vagina. No douching, tampons, or sexual activity until seen by physician. NOTIFY PHYSICIAN IF YOU HAVE ANY QUESTIONS OR IF ANY OF THE FOLLOWING SYMPTOMS OCCUR: * If your episiotomy/perineum becomes red, swollen, or more painful than what you have experienced in the hospital. * If your vaginal bleeding becomes foul smelling. * If your vaginal bleeding becomes more heavy than a period or if your bleeding changes from pink to bright red. However, you may pass an occasional walnut- sized clot once or twice for the first week . * If you experience a sharp, shooting pain in you calves. * If you discover a hard, reddened area on your breast or if you experience flu- like symptoms. DIET: * Eat regular, well-balanced meals. * Drink plenty of fluids daily. If , drink to thirst. Patient Language: Thai Stand Alone Forms: General Discharge Information Follow-up/Referrals: Hong Grimaldo MD [Physician, [facility]ER] - Call for Appointment Discharge Medications: Continued escitalopram oxalate 20 mg tablet 20 mg PO DAILY No Action amoxicillin-pot clavulanate 875-125 mg tablet 1 tablet PO Q12H 5 Days Qty: 10 0RF Date of admission: 12/27/24 15:16 Primary Care Provider: Jp,Cristina Chaves Admitting Provider: Hong Grimaldo Attending physician on admission: Forrest Porras Condition: Stable
[2024-12-28] MEDS: OXYTOCIN 30 UNITS/NS 500 ML 30 UNITS/500 ML BAG 125 UNITS IV CONT (02:45)
[2024-12-28] MEDS: ACETAMINOPHEN 325 MG TABLET 650 MG PO ×2 (03:59→17:06)
[2024-12-28] MEDS: IBUPROFEN 600 MG TABLET PO (07:46)
[2024-12-28] MEDS: DOCUSATE SODIUM 100 MG CAPSULE PO ×2 (07:46→17:06)
--- NOTE | 2024-12-28 09:53 | PM.OBPNVD ---
OB - PN: Subj Subjective Date/time seen: 12/28/24 09:53 Narrative: Pain OK. OB - PN: Obj Data Labs 12/27/24 17:31 Labs: Laboratory Results - last 24 hr 12/27/24 17:31 WBC 10.3 H RBC 4.09 L Hgb 8.7 L Hct 30.0 L MCV 73.3 L MCH 21.3 L MCHC 29.0 L RDW 16.1 H Plt Count 199 MPV 10.8 H Immature Gran % (Auto) 0.5 Neut % (Auto) 73.9 H Lymph % (Auto) 18.1 L [place] % (Auto) 6.4 Eos % (Auto) 0.9 Baso % (Auto) 0.2 Lymph # (Auto) 1.87 [place] # (Auto) 0.7 H Eos # (Auto) 0.1 Baso # (Auto) 0.0 Abs Immat Gran (auto) 0.05 H Absolute Neuts (auto) 7.6 H Absolute Nucleated RBC 0.000 Band Neutrophils % 0 Nucleated RBC % 0.0 Platelet Estimate Adequate Hypochromasia 1+ Anisocytosis 2+ Microcytosis 1+ Schistocytes None seen Syphilis IgG/IgM Ab Non-reactive HIV 1&2 Ab/P24 Ag 4thGn Negative Blood Type O Positive Antibody Screen Negative OB - PN A/P Assessment and Plan (1) (normal spontaneous vaginal delivery): Code(s): O80 - Encounter for full-term uncomplicated delivery Status: Acute Plan day: 0 Comments: A: PPD#0, doing well. P: Routine care. Exam Psych: Other: AVSS ABD soft, nontender, fundus firm EXT nontender
[2024-12-29 04:59] LABS: Hematocrit 28.0 % (37.0-47.0); Hemoglobin 7.9 g/dL (12.0-15.0)
[2024-12-29 07:35] VITALS: BP 101/61; PULSE 80; RESP 16; TEMP 36.6; O2SAT 99
[2024-12-29] MEDS: DOCUSATE SODIUM 100 MG CAPSULE PO (07:42)
--- NOTE | 2024-12-29 09:31 | WPDANESPN ---
Anes - Prog Note Post-Op Date/Time: 12/29/24 09:31 Cardiovascular status: normal Respiratory status: normal Airway patency: baseline Mental status: baseline Post-Op hydration status: normal Vital Signs: Last Vital Signs Temp 36.6 C 12/29/24 07:35 Pulse 80 12/29/24 07:35 Resp 16 12/29/24 07:35 BP 101/61 12/29/24 07:35 Pulse Ox 99 12/29/24 07:35 O2 Del Method Room Air 12/28/24 19:15 Pain Score (VAS): 2 Laboratory Tests 12/29/24 03:55 12/29/24 03:55 Hgb 7.9 L Hct 28.0 L Post-procedural complaints: none Patient Feedback: Patient satisfied with anesthetic care.
--- NOTE | 2024-12-29 10:09 | PC.NURSE ---
Patient viewed the discharge video Mother & Baby Care, The First Two Weeks. Patient was given the opportunity and encouraged to ask questions. Patient verbalized understanding of information shared and has been given the mother/baby guide for home reference.
--- NOTE | 2024-12-29 10:19 | P.PNOB_ITS ---
OB - PN: Subj Subjective Date/time seen: 12/29/24 10:19 Narrative: Pain OK. Would like to go home. OB - PN: Obj Data Labs 12/29/24 03:55 Labs: Laboratory Results - last 24 hr 12/29/24 03:55 Hgb 7.9 L Hct 28.0 L OB - PN A/P Plan day: 1 Comments: A: PPD#1, doing well. P: Home to f/u 6 weeks. Exam 2 Psych: Other: AVSS ABD soft, nontender, fundus firm EXT nontender
--- NOTE | 2024-12-29 10:21 | P.DS_ITS ---
DS: Admitting Diagnosis Discharge Date 12/29/24 Admitting Diagnosis IUP at 38 weeks Labor GBS colonization DS: Discharge Diagnosis Discharge Diagnosis (1) (normal spontaneous vaginal delivery): Code(s): O80 - Encounter for full-term uncomplicated delivery Status: Acute (2) GBS (group B Streptococcus carrier), +RV culture, currently : Code(s): O99.820 - Streptococcus B carrier state complicating Status: Acute OB - DS: Summary Hospital Course Hospital Course: She was admitted in labor. She had an uncomplicated vaginal delivery. She did well . OB Procedures : NST OB Procedures Intrapartum: GBS prophylaxis OB Procedures: : None Peripartum Data Episiotomy description: None Time Spent with Patient Time attestation: Total time spent providing and/or coordinating discharge services: DS: Data Data Completed and Pending Labs on day of discharge: Labs from last 24 hours 12/29/24 03:55 Hgb 7.9 L Hct 28.0 L Discharge Plan Discharge Attending physician on discharge: Hong Grimaldo Consulting providers: Carmenza Pierre Discharging Clinician: Hong Grimaldo Patient Disposition: Home Activity: may shower and pelvic rest Diet: regular Discharge Instructions: Education: Mom and Baby Guide Given to: Mother Follow-Up: Call your delivering provider's office for an appointment to be seen in: Call office for an appointment Mom and baby should come to the [facility] for the follow-up appointment. Appointment Date/Time: December 30, 2024 at 10:00 am What to expect at your follow-up visit: Physical Assessment Call [phone] if you are unable to keep your appointment time. BREAST CARE: * Wear a snug supportive bra. * For engorgement discomfort: Bottle Feeding: * May apply ice packs EPISIOTOMY/PERINEAL CARE: * Until bleeding stops, use your yoni bottle after urinating * Change your pad frequently throughout the day * You may take sitz baths several times a day (fill your bathtub with warm water and soak for 20 minutes.) Do NOT bathe in the water * No tub baths until seen by your physician - You may shower ACTIVITY: * Rest as much as possible. * Do not exercise or lift anything heavier than your baby (such as laundry or other children.) * Avoid stairs or driving as much as possible. * Do not put anything into the vagina. No douching, tampons, or sexual activity until seen by physician. NOTIFY PHYSICIAN IF YOU HAVE ANY QUESTIONS OR IF ANY OF THE FOLLOWING SYMPTOMS OCCUR: * If your episiotomy/perineum becomes red, swollen, or more painful than what you have experienced in the hospital. * If your vaginal bleeding becomes foul smelling. * If your vaginal bleeding becomes more heavy than a period or if your bleeding changes from pink to bright red. However, you may pass an occasional walnut- sized clot once or twice for the first week . * If you experience a sharp, shooting pain in you calves. * If you discover a hard, reddened area on your breast or if you experience flu- like symptoms. DIET: * Eat regular, well-balanced meals. * Drink plenty of fluids daily. If , drink to thirst. Patient Language: Croatian Stand Alone Forms: General Discharge Information Follow-up/Referrals: Hong Grimaldo MD [Physician, CHIROPRACTIC NEUROLOGIST] - Call for Appointment Discharge Medications: New ibuprofen 600 mg tablet 600 mg PO Q6H PRN (Reason: cramps) Qty: 30 0RF Continued DHA 200 mg capsule 200 mg PO DAILY escitalopram oxalate 20 mg tablet 20 mg PO DAILY Date of admission: 12/27/24 15:16 Primary Care Provider: Jp,Cristina Chaves Admitting Provider: Hong Grimaldo Attending physician on admission: Hong Grimaldo Condition: Stable
[2024-12-30 10:27] VITALS: BP 123/71; PULSE 84; RESP 18; O2SAT 100
== END 2024-12-29 14:37 | disposition home or self-care (01) | DRG 807 ==
LOC: ANHLDR 12-28 02:36 → ANHOB2 12-29 10:21 → ANHLDR 01-02 09:21
PROVIDERS: Admitting Provider Obstetrics & Gynecology; PCP Family Medicine; Visit Provider Obstetrics & Gynecology
DX: O99.824 Streptococcus B carrier state complicating childbirth (principal); Z37.0 Single live birth; O99.344 Other mental disorders complicating childbirth; F41.9 Anxiety disorder, unspecified; Z3A.38 38 weeks gestation of pregnancy
CPT/HCPCS: 36415; 85014; 85018; 85025; 86593; 86703; 86850; 86900; 86901; A9270; G0432; J2590; J2795; J3373; J7120

== ENCOUNTER 2025-01-07 15:09 | Emergency (ER) | payer OTHER, SELFPAY ==
--- OUTSIDE RECORDS SUMMARY | 2025-01-07 15:12 | XMS_ITS | Encounter Summary ---
Author Organization [facility] Health Address [address] [place] [address] Care Team Providers Care Field Crop Technical Officer Name Role Phone Cristina Trammell DO Primary Care Provider [phone] Reason for Visit * Reason Onset Date Comments MEDICATION REFILL 08/26/2018 Encounter Details Date Type Department Care Team (Late st Contact Info) Description 08/26/2018 Refill [facility] [address] [place] [address] Breann Plascencia MD [address] [place] [address] MEDICATION REFILL Social History Tobacco Use Types Packs/Day Years Used Date Smoking Tobacco: Never Smokeless Tobacco: Never Comments Unknown Sex and Gender Information Value Date Recorded Sex Assigned at Female 10/30/2024 11:30 PM CDT Legal Sex Female 5:36 AM 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
--- OUTSIDE RECORDS SUMMARY | 2025-01-07 15:12 | XMS_ITS | Patient Health Record ---
Author Organization [facility] Address [address] [place] [address] Care Team Providers Care Waterproofer Helper Name Role Phone Mike Duron Unavailable [phone] Reason For Referral No Information Plan Of Treatment No Information Insurance Providers Payer Name Payer Address Payer Phone Subscriber Number Group Number Insured Name Patient Relationship to Insured Coverage Start Date Coverage End Date [facility] Un[facility] Testing and Treatment [facility] [address] [address] [place] [address] [id number] Alaina Meehan Self - patient is the insured
--- OUTSIDE RECORDS SUMMARY | 2025-01-07 15:12 | XMS_ITS | Clinical Summary ---
Author Organization [facility] Address [address] [facility] [place] [address] Care Team Providers Care Dock Boss Name Role Phone Cristina Trammell DO Primary Care Provider [phone] Source Comments [facility],non-owned Affiliates and Associated Physician Practices is amultiple site organization consisting of ambulatory clinics and hospital sitesin [place], [place], [place] and [place]. This disclosure is being madepursuant to the Care Everywhere program and may not contain all information available regarding this patient. Last updated 18.[facility] Allergies Active Allergy Reactions Criticality Noted Date [...] Type Department Care Team Description 11/02/2024 Telephone [facility] [address] [place] [address]. [address] [place] [address] Tessa Crowe RN Hospital Follow-up 10/31/2024 Telephone [facility] [address] [place] [address]. [address] [place] [address] Tessa Crowe RN Hospitalization 10/30/2024 8:26 PM CDT - 11/01/2024 1:50 PM CDT Hospital Encounter [facility] 5E ANTEPARTUM/MOTHER BABY [address] [place] [address] Jovany Epps MD TRAVELING BUYER Discharge Disposition: Home or Self Care 10/30/2024 Travel from Last 3 Months Social History Tobacco Use Types Packs/Day Years Used Date Smoking Tobacco: Never Smokeless Tobacco: Never Overall Financial Resource Strain (CARDIA) Answe r Date Recorded How hard is it for you to pa y for the very basics like food, housing, medical care, and heating? Not hard at all 10/30/2024 [facility] - Occupational [...] any time in the past 12 m [facility], were you homeless or living in a longterm (including now)? 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 Gender Identity Not on file Sexual Orientation [...] VACCINE (1 - 3-dose SCDM series) 2017 DEPRESSION SCREENING 05/03/2024 OB-ONE HOUR GLUCOSE 10/02/2024 OB-TDAP CURRENT 10/09/20242019, 02/26/2016 COVID-19 VACCINE (2023-2 5 season) 2025 INFLUENZA VACCINE (#1) 2025 9, 01/25/2018, 04/02/2017 [...] - 99 mg/dL 11/02/2024 12:31 AM CDT [facility] Specimen Type Arterial/C apillary 11/02/2024 12:31 AM CDT [facility] Blood BLOOD SPECIMEN / Unknown 10/31/2024 10:24 AM CDT 11/02/2024 12:31 AM CDT Jovany Epps MD LAB - POINT OF CARE ORDERABLES Final Result [facility] [address] [place], [place] [id number] * BLOOD TYPE VERIFICATION (10/30/2024 10:05 PM CDT) ABO Rh O POS 10/30/2024 10:32 PM CDT [facility] Blood Bank BLOOD SPECIMEN / Unknown Lab Venipuncture / Unknown 10/30/2024 10:05 PM CDT 10/30/2024 10:09 PM CDT Jovany Epps MD LAB - BLOOD BANK ORDERABLES Fin al Result [facility] [address] [place] [address], [facility] [phone] * TRICHOMONAS VAGINALIS PAYAM (10/30/2024 10:03 PM CDT) Trichomonas by PAYAM NEGATIVE NEGATIVE 10/31/2024 10:41 AM CDT [facility] Microbiology URINE / Unknown Collection / Unknown 10/30/2024 10:03 PM CDT 10/30/2024 10:17 PM CDT Narrative [facility] - 10/31/2024 10:41 AM CDT This test performed by Qualitative real-time Polymerase Chain Reaction (PCR). Jovany Epps MD LAB - MICROBIOLOGY ORDERABLES F inal Result Performing Organization Address City/[facility]/ZIP Co de Phone Number [facility] [address] [place] [address], [facility] [phone] * CHLAMYDIA AND N. GONORRHOEAE PAYAM (10/30/2024 10:03 PM CDT) Chlamydia by PAYAM NEGATIVE NEGATIVE 10/31/2024 10:41 AM CDT [facility] Neisseria gonorrhoeae PAYAM NEGATIVE NEGATIVE 10/31/2024 10:41 AM CDT [facility] Microbiology URINE / Unknown Collection / Unknown 10/30/2024 10:03 PM CDT 10/30/2024 10:17 PM CDT Narrative [facility] - 10/31/2024 10:41 AM CDT This test performed by Qualitative real-time Polymerase Chain Reaction (PCR). Jovany Epps MD LAB - MICROBIOLOGY ORDERABLES F inal Result Performing Organization Address City/[facility]/ZIP Co de Phone Number [facility] [address] [place] [address], [facility] [phone] * (ABNORMAL) URINALYSIS REFLEX MICROSCOPIC REFLEX CULTURE (10/30/2024 10:02 PM CDT) Color UA Colorless(A) Yellow, Straw 10/30/2024 10:23 PM CDT [facility] Clarity UA Clear Clear 10/30/2024 10:23 PM CDT [facility] Glucose UA Normal Normal 10/30/2024 10:23 PM CDT [facility] Bilirubin UA Negative Negative 10/30/2024 10:23 PM CDT [facility] Ketone UA 3+(A) Negative 10/30/2024 10:23 PM CDT [facility] Specific [place] UA 1.014 1.005 - 1.030 10/30/2024 10:23 PM CDT [facility] Blood UA Negative Negative 10/30/2024 10:23 PM CDT [facility] pH UA 5.5 5.0 - 8.0 10/30/2024 10:23 PM CDT [facility] Protein UA Negative Negative 10/30/2024 10:23 PM CDT [facility] Urobilinogen UA Normal Normal mg/dL 10/30/2024 10:23 PM CDT [facility] Nitrite UA Negative Negative 10/30/2024 10:23 PM CDT [facility] Leukocyte Esterase UA Negative Negative 10/30/2024 10:23 PM CDT [facility] Reflex Status Culture not indicated 10/30/2024 10:23 PM CDT [facility] Urine Microscopy Urine microscopy not indicated 10/30/2024 10:23 PM CDT [facility] Urine URINE SPECIMEN OBTAINED BY CLEAN CATCH PROCEDURE / Unknown Collection / Unknown 10/30/2024 10:02 PM CDT 10/30/2024 10:17 PM CDT Narrative [facility] - 10/30/2024 10:23 PM CDT us Jovany Epps MD LAB - URINALYSIS ORDERABLES Fin al Result [facility] [address] [place] [address] * (ABNORMAL) CULTURE STREP B (10/30/2024 10:01 PM CDT) Culture Strep B Growth of Streptococcus agalactiae (Group B)(AA) 11/01/2024 3:44 AM CDT [facility] Microbiology MISCELLANEOUS SAMPLES / Unknown Collection / Unknown 10/30/2024 10:01 PM CDT 10/30/2024 10:17 PM CDT Narrative [facility] - 11/01/2024 3:44 AM CDT Susceptibility testing of penicillin, other beta-lactam antibiotics, and vancomycin is not necessary for beta-hemolytic streptococci groups A,B,C and G because resistant strains have not been recognized. Jovany Epps MD LAB - MICROBIOLOGY ORDERABLES F inal Result [facility] [address] [place] [address], [facility] [phone] * TYPE + SCREEN PANEL (ALL [facility]) (10/30/2024 9:09 PM CDT) ABO Rh O POS 10/30/2024 10:32 PM CDT [facility] Comment:No history; collect retype. Antibody Screen NEG 10:32 PM CDT [facility] Blood Bank BLOOD SPECIMEN / Unknown Lab Venipuncture / Unknown 10/30/2024 9:09 PM CDT 10/30/2024 9:47 PM CDT Jovany Epps MD LAB - BLOOD BANK ORDERABLES Fin al Result Performing Organization Address City/[facility]/ZIP Co de Phone Number [facility] [address] [place], [place] [id number] [place] [address] * (ABNORMAL) CBC W AUTO DIFFERENTIAL (10/30/2024 9:09 PM CDT) WBC 11.9(H) 4.0 - 10.7 x10E9/L 10/30/2024 9:55 PM CDT [facility] RBC Count 3.61(L) 3.90 - 5.20 x10E12/L 10/30/2024 9:55 PM CDT [facility] Hemoglobin 8.6(L) 11.9 - 15.8 g/dL 10/30/2024 9:55 PM CDT [facility] Hematocrit 28.4(L) 34.8 - 46.1 % 10/30/2024 9:55 PM CDT [facility] MCV 78.7(L) 80.0 - 98.0 fL 10/30/2024 9:55 PM CDT [facility] MCH 23.8(L) 26.7 - 33.6 pg 10/30/2024 9:55 PM CDT [facility] MCHC 30.3(L) 31.7 - 36.3 g/dL 10/30/2024 9:55 PM [facility] RDW-CV 13.8 11.3 - 14.8 % 10/30/2024 9:55 PM [facility] Platelet Count 193 150 - 420 x10E9/L 10/30/2024 9:55 PM [facility] MPV 11.2 7.8 - 11.4 fL 10/30/2024 9:55 PM [facility] Neutrophil % 92.5(H) 41.0 - 74.0 % 10/30/2024 9:55 PM [facility] Lymphocyte % 5.3(L) 17.0 - 47.0 % 10/30/2024 9:55 PM [facility] Monocyte % 1.3(L) 3.0 - 11.0 % 10/30/2024 9:55 PM [facility] Eosinophil % 0.0 0.0 - 7.0 % 10/30/2024 9:55 PM [facility] Basophil % 0.1 0.0 - 1.6 % 10/30/2024 9:55 PM [facility] Immature Granulocytes % 0.8 0.0 - 1.0 % 10/30/2024 9:55 PM [facility] Neutrophil Absolute 11.05(H) 1.60 - 7.50 x10E9/L 10/30/2024 9:55 PM CDT [facility] Lymphocyte Absolute 0.63(L) 1.00 - 4.40 x10E9/L 10/30/2024 9:55 PM CDT [facility] Monocyte Absolute 0.15 0.15 - 1.00 x10E9/L 10/30/2024 9:55 PM [facility] Eosinophil Absolute 0.00 0.00 - 0.60 x10E9/L 10/30/2024 9:55 PM CDT [facility] Basophil Absolute 0.01 0.00 - 0.13 x10E9/L 10/30/2024 9:55 PM CDT [facility] Blood BLOOD SPECIMEN / Unknown Lab Venipuncture / Unknown 10/30/2024 9:09 PM CDT 10/30/2024 9:47 PM CDT us Jovany Epps MD LAB - HEMATOLOGY ORDERABLES Fin al Result [facility] [address] [place] [address] * HEPATITIS SCREEN ACUTE (07/31/2013 11:58 AM CDT) Pathologist [facility] Hepatitis A Virus Antibody IgM NON-REACTI VE NON-REACT [facility] ([facility]) Hepatitis B Virus Surface Antigen NON-REACTI VE NON-REACT [facility] ([facility]) Hepatitis B Core Virus Antibody IgM NON-REACTI VE NON-REACT [facility] ([facility]) Hepatitis C Antibody NON-REACTI VE NON-REACT [facility] ([facility]) Signal/Cutoff 0.05 <1.00 [facility]) Comment: REPORT COMMENT: SPECIMEN TYPE->URINE Test Performed at: [facility] [id number] [place] [id number] KAY HANNA DO,MPH 07/31/2013 11:5 8 AM CDT 07/31/2013 12:00 PM CDT us Jackie Bach MD LAB - CHEMISTRY OR DERABLES Final Result Performing Organization Address City/[facility]/ZIP Co de Phone Number [facility]) [phone] from Last 3 Months or Most Recently Relevant to Health Maintenance Insurance [facility] Address: [facility] [id number] [place] [address] [place] [address] HEALTH PLAN Advance Directives * Full Code (Latest Code Status on File) Date Activated Date Inactivated Comments 10/30/2024 8:40 PM 11/01/2024 2:54 PM Care Teams Dock Boss Relationship Specialty Start Date End Date Cristina Trammell DO PCP - General Family Medicine 10/24/18
--- OUTSIDE RECORDS SUMMARY | 2025-01-07 15:12 | XMS_ITS | Clinical Summary ---
Author Organization [facility] Address [address] [place] [address] Care Team Providers Care Dental Insurance Coordinator Name Role Phone Aruna Parkinson NP Primary Care Provider Yoselin Partida MD Unavailable [phone] Hong Grimaldo MD Unavailable [phone] Allergies Active Allergy Reactions Criticality Noted Date Comments Cefaclor Hives,Other (See comments) Medium Reaction: Hives, , Reaction: Hives, Sulfamethoxazole Hives Medium Reaction: Hives, Sulfamethoxazole-Trimethop rim Other (See comments) Reaction: Hives, Trimethoprim Hives Medium Reaction: Hives, Medications vit 86-lakv-rbfur-dh a 27mg iron- 800 mcg-250 mg capsule [...] AM CDT): -chronic, controlled -patient currently takes Mvybxdpbz-qrghgwokdzeov-ofrpaufs [id number] mg q.4 as needed -patient reports having migraine headache 2-3 migraine headaches a month which can last multiple hours to a couple of days at a time -encourage patient to use p.r.n. migraine medication if needs so -continue current treatment plan Assessment & Plan (02/17/2024 10:42 PM CDT): -chronic, not at goal -patient currently takes Utloyqbsf-amwthhfrockhz-juyraytw 024157 mg q.4 as needed -patient reports having [...] needed Assessment & Plan (06/25/2023 1:59 PM ADDING MACHINE SERVICER): Doxycycline twice daily for 21 days Diflucan [...] plan Assessment & Plan (04/19/2023 10:51 AM ADDING MACHINE SERVICER): Labs ordered, will follow. Patient can not [...] plan Assessment & Plan (04/19/2023 10:49 AM ADDING MACHINE SERVICER): Stable. Cont. Current prescription medications, Lexapro. Assessment [...] 12:33 PM CDT): On Humira, managed by financial services assistant. Cont current mgmt. Assessment & Plan (09/30/2018 [...] Type Department Care Team Description 10/31/2024 Telephone Dixie Avison Young [facility] [address] [place] [id number] Daphne Eng MA from Last 3 [...] Paternal Half-Sister Colon cancer Neg Hx no clinical research coordinator cancer Relation Name Status Comments Father Alive [...] week 01/01/2023 How often do you attend [facility] or christianity services? Patient declined 01/01/2023 Do you belong to any clubs o r organizations such as confucianism groups, unions, fraternal or athletic groups, or [...] staff should administer the PHQ-9) 0 08/21/2024 [facility] - Occupational Stress [...] place to sleep or slept in a prison (including now)? No 01/01/2023 [place] Depression Scale Answer Date Recorded [place] Depression Scale Total 0 10/09/2019 The thought [...] on file Legal Sex Female 12:44 PM ADDING MACHINE SERVICER Gender Identity Female 07/29/2020 9:20 PM CDT [...] Estimated Date of Delivery 06/23/2024 - Present (01/07/2025) 01/08/2025 (set by Rayray Daily MD on 06/23/2024 based on Last Menstrual Period on 04/03/2024 (Exact Date)) Dating Summary Based On BAUDILIO GA Diff Last Menstrual Period on 04/03/2024 (Exact Date) 01/08/2025 Working Ultrasound on 06/08/2024 01/07/2025 +1d GA:9w4d Vitals Pregravid Weight Height TWG (As of 01/07/2025) Pregrav id BMI 160 cm (5' 3) [...] Date End Date Taking? Authorizing Provider vit 20-kkvo-ickxj-dha 27mg iron- 800 mcg-250 mg capsule Take by mouth Yes Provider, MD Chichi dwqmayykhf-hudefwxdexfnl-rcawxlcf (ESGIC) 50-325-40 mg per tablet Take 1 tablet by mouth every 4 (four) hours as needed for headaches Patient not taking: Reported on 06/23/2024 02/17/24 Aruna Parkinson, WEIGHER PACKING escitalopram (LEXAPRO) 10 mg tablet Take 1 [...] cancer Other Colon cancer Neg Hx no clinical research coordinator cancer 06/12/21 Social History Tobacco Use Smoking [...] in 4 weeks. Rayray Daily MD 06/23/2024 NG MACHINE SERVICER Last Filed Vital Signs Vital Sign Reading [...] Vaccines (1 - 3-dose SCDM series) 2017 Covid-19 Vaccine ( - season) 2025 10/02/2020, 09/04/2020 Influenza Vaccine (#1) 2025 , 04/19/2023, 02/23/2022, Additional history exists Cervical Cancer Screening 07/03/20252022, 06/12/2021, 12/13/2017 Depression [...] HEPATITIS C ANTIBODY Routine 06/23/2024 10:45 AM ADDING MACHINE SERVICER Encounter for supervision of other normal in first trimester PAP AND HIGH RISK HPV, REFLEX TO GENOTYPING Routine 07/03/2022 2:38 PM ADDING MACHINE SERVICER Encounter for supervision of other normal in first trimester from Last 3 Months or Most Recently Relevant to Health Maintenance Results * Hepatitis C antibody Blood (06/23/2024 10:45 AM ADDING MACHINE SERVICER) Hep C Ab Nonreactive Nonreactive Comment: Interpretive [...] last revised on 2019. Testing performed by: [facility], [address] [place] [address]., [id number] Blood 06/23/2024 10:4 5 AM ADDING MACHINE SERVICER 06/23/2024 4:37 PM ADDING MACHINE SERVICER us Rayray Daily MD LAB MICROBIOLOGY - GENERAL ORDERABLES Final Result [facility] [facility] [place] [address] * Pap and High Risk HPV, reflex to Genotyping (07/03/2022 2:38 PM ADDING MACHINE SERVICER) CLINICAL INFORMATION: [facility] Comment: LMP [facility] Comment:04/02/2022 Previous Pap [facility] Comment:NONE GIVEN Prev. Bx [facility] Comment:NONE GIVEN SOURCE: [facility] Comment:Cervix, Endocervix Pap, specimen adequacy [facility] Comment: Satisfactory for evaluation. Endocervical/transformation zone component present. HPV interp [facility] Comment:Negative for intraep ithelial lesion or malignancy. Parts Runner [facility] Comment: MLO, CT(ASCP) CT screening location: [place] [address] Administration JUAN MANUEL Sheriff [address] Review exchange clerk [facility] Comment: SCALES, CT(ASCP) CT Screening [facility] JUAN MANUEL Sheriff [id number] Comment [facility] Comment: EXPLANATORY NOTE: The Pap is a [...] Time PCR Thin prep 07/03/2022 2:38 PM ADDING MACHINE SERVICER 07/06/2022 6:35 AM ADDING MACHINE SERVICER Rayray Daily MD LAB CYTOLOGY ORDERABLES Fi nal Result [facility] [address] Administration JUAN MANUEL [place] [address] Blair Farrar/[place] [address] [facility] [place] [address] from Last 3 Months or Most Recently Relevant to Health Maintenance [place] [facility] OPEN ACCESS Advance Directives For more information, please contact: [phone] * Full Code (Latest Code Status on File) Date Activated Date Inactivated Comments 01/01/2023 6:31 AM 01/03/2023 10:30 PM Full CPR in c ase of cardiopulmonary arrest * Full Code Date Activated Date Inactivated Comments 08/30/2019 8:08 AM 08/31/2019 10:04 PM Full CPR in case of cardiopulmonary arrest Care Teams Dental Insurance Coordinator Relationship Specialty Start Date End Date Aruna Parkinson WEIGHER PACKING [address] [place] [id number] PCP - General Family Medicine 02/17/24 Yoselin Partida MD [address] [place] [address] Referring Physician Rheumatology 02/17/24 Hong Grimaldo MD [address] [place] [address] Referring Physician Obstetrics and Gynecology 08/21/24
--- OUTSIDE RECORDS SUMMARY | 2025-01-07 15:12 | XMS_ITS | Clinical Summary ---
Author Organization [facility] Address [address] [place] [phone] Phone Care Team Providers Care Unit Control Worker Name Role Phone Unavailable Primary Care Provider [...] 19+ 3-dose series) 2009 HPV/Cotest (21-29) 08/26/2011 HPV VACCINES (1 - 3-dose SCD M series) 2017 CERVICAL CANCER SCREENING 2020 HPV/Cotest (30-65) 2020 PAP SMEAR 2020 INFLUENZA VACCINE (#1) 2024 , 04/19/2023, 02/23/2022, Additional history exists DTAP/TDAP/TD VACCINES (4 - T d or Tdap) 01/03/2033 01/03/2023, 06/19/2019, 02/26/2016 Insurance [facility] H[facility]
--- OUTSIDE RECORDS SUMMARY | 2025-01-07 15:12 | XMS_ITS | Encounter Summary ---
Author Organization [facility] Address [address] [place] [address] Care Team Providers Care Fast Food Services Manager Name Role Phone Cristina Trammell DO Primary Care Provider Reason for Visit * Reason Onset Date Comments MEDICATION REFILL 08/23/2018 Encounter Details Date Type Department Care Team (Late st Contact Info) Description 08/23/2018 Refill [facility] [address] [place] [address] Breann Plascencia MD [address] OF RHEUMATOLOGY [place], [place] [id number] MEDICATION REFILL Social History Tobacco Use Types Packs/Day Years Used Date Smoking Tobacco: Never Smokeless Tobacco: Never Comments Unknown Sex and Gender Information Value Date Recorded Sex Assigned at Female 10/30/2024 11:30 PM CDT Legal Sex Female 5:36 AM COMPUTER GRAPHIC ARTIST Gender Identity Not on file Sexual Orientation [...] on filedocumented in this encounter Care Teams Fast Food Services Manager Relationship Specialty Start Date End Date Cristina Trammell DO PCP - General Family Medicine 10/24/18 documented as of this encounter
--- OUTSIDE RECORDS SUMMARY | 2025-01-07 15:12 | XMS_ITS | Encounter Summary ---
Author Organization [facility] Address [address] [facility] [address] [place] [address] Phone Care Team Providers Care Biofuels Operations Manager Name Role Phone Jp Cristina Diaz DO Primary Care Provider [phone] Rayray Daily MD Unavailable [phone] No, Physician Primary Care Provider [phone] Aruna Parkinson NP Primary Care Provider Yoselin Partida MD Unavailable [phone] Hong Grimaldo MD Unavailable [phone] Reason for Visit * Reason Onset Date Comments P.A FOR ENBREL PLEASE 02/17/2023 Encounter Details Date Type Department Care Team (Late st Contact Info) Description 02/17/2023 Telephone [facility] Medicine Rheumatology [address] [facility] 5[address] [place] [address] [place] [address] Julianna Cleveland, RMA P.A FOR [...] week 01/01/2023 How often do you attend [facility] or zoroastrian services? Patient declined 01/01/2023 Do you belong [...] staff should administer the PHQ-9) 0 02/18/2023 [facility] Occupat ional [...] a care home (including now)? No 01/01/2023 [place] Depression Scale Answer Date Recorded [place] Depression Scale Total 0 10/09/2019 The thought [...] on file Legal Sex Female 12:44 PM MANAGER ANDROID Gender Identity Female 07/29/2020 9:20 PM CDT Sexual Orientation Straight 07/29/2020 9: 20 PM CDT documented as of this encounter Plan of Treatment Not on file documented as of this encounter Visit Diagnoses Not on filedocumented in this encounter Care Teams Biofuels Operations Manager Relationship Specialty Start Date End Date Cristina Trammell DO PCP - General Family Medicine 01/25/18 02/10/24 No, Physician PCP - General 02/14/24 02/16/24 Aruna Parkinson, LUMBER TAILER [address] [facility] [address] [place] [address] PCP - General Family Medicine 02/17/24 Rayray Daily MD [address] [facility] [address] [place] [address] Senior Bi Architect Obstetrics and Gynecology 01/02/23 08/20/24 Yoselin Partida MD [address] [facility] [address] [place] [address] Referring Physician Rheumatology 02/17/24 Hong Grimaldo MD [address] [facility] [address] [place] [address] Referring Physician Obstetrics and Gynecology 08/21/24 documented as of this encounter
--- OUTSIDE RECORDS SUMMARY | 2025-01-07 15:12 | XMS_ITS | Clinical Summary ---
Author Organization [facility] Address [address] [place] [address] Phone Care Team Providers Care Resource Analyst Name Role Phone Provider, None Primary Care [...] on file Legal Sex Female 9:56 AM SPOUT WORKER Gender Identity Not on file Sexual Orientation Not on file Last Filed Vital Signs Vital Sign Reading Time Taken Comments Blood Pressure 116/70 05/06/2020 10:46 AM SPOUT WORKER Pulse 83 05/06/2020 10:46 AM SPOUT WORKER Temperature 35.8 C (96.4 F) 05/06/2020 10:46 AM SPOUT WORKER Respiratory Rate 16 05/06/2020 10:46 AM SPOUT WORKER Oxygen Saturation 98% 05/06/2020 10:46 AM SPOUT WORKER Inhaled Oxygen Concentration - - Weight 62.6 kg (138 lb) 05/06/2020 10:46 AM SPOUT WORKER Height - - Body Mass Index - [...] patient's age to complete this topic Insurance [facility] Care Teams Resource Analyst Relationship Specialty Start Date End Date Provider, None [place] PCP - General 05/06/20
[2025-01-07 15:13] VITALS: BP 126/90; PULSE 76; RESP 16; TEMP 36.6; O2SAT 100
--- NOTE | 2025-01-07 15:28 | PC.NURSE ---
Pt took AZO no urine dipstick performed urine sent for culture.
--- NOTE | 2025-01-07 15:35 | ED.FEMALEGU ---
HPI - Female Genitourinary General Chief complaint: Urogenital-Female Stated complaint: poss bladder infection Time Seen by Provider: 01/07/25 15:15 Source: patient and RN notes reviewed Mode of arrival: ambulatory Limitations: no limitations History of Present Illness HPI Narrative: 34-year-old female presents Express Care complaining of urinary symptoms for 1 days. Patient reports having dysuria, increased frequency, hesitancy. Patient denies any fevers, abdominal pain, body aches, chills, nausea, vomiting, diarrhea. Patient to get yqfx-uvc-xymuldo azo this morning for urinary dysuria. Patient is 9 days . Patient had a vaginal delivery without any complications. Patient reports still having vaginal discharge reports that is brown scant. Patient says this was her 5th . Patient said she was positive for group B strep and was treated prior to delivery.. Related Data Home Medications ?Medication ?Instructions ?Recorded ?Confirmed ?Last Taken ?Type escitalopram oxalate 20 mg tablet 20 mg PO DAILY 12/11/24 12/27/24 12/27/24 History Allergies Allergy/AdvReac Type Severity Reaction Status Date / Time cefaclor Allergy Mild Hives / Verified 01/07/25 15:19 [place] sulfamethoxazole Allergy Mild Hives / Verified 01/07/25 15:19 [place] trimethoprim Allergy Mild Hives / Verified 01/07/25 15:19 Red Face Review of Systems Review of Systems: CONSTITUTIONAL: Denies fever, chills, body aches, or sweats. EYES: Denies visual changes, redness, or discharge. ENT: Denies rhinorrhea, congestion, sore throat, or otalgia. CARDIOVASCULAR: Denies chest pain, palpitations, or edema. RESPIRATORY: Denies cough or dyspnea. GASTROINTESTINAL: Denies abdominal pain, nausea, vomiting, or diarrhea. GENITOURINARY: Positive for dysuria, increased frequency, hesitancy. Negative for hematuria, vaginal bleeding abnormal vaginal discharge, pelvic pain,. SKIN: Denies rash or itching. MUSCULOSKELETAL: Denies back pain, joint pain, or myalgia. NEUROLOGIC: Denies headache, numbness, or weakness. PSYCHIATRIC: Denies anxiety or depression. All other systems reviewed are negative, except as documented in HPI. [facility] Past Medical History Medical History Rheumatoid arteritis Headache Anxiety Anemia Family History Family History Mother Depression Rheumatoid arthritis Grandparent Cancer Social History Social History Smoking status: Never smoker Substance use: never Do You Feel Safe in your Home?: Yes Lack of Transportation: No Lack of Food: Never True Current Housing: I Have Housing Concerned About Future Housing: No Difficulty Paying Gas/Electric Bills: No Difficulty Paying for Meds: No Currently Unemployed: No Education: Trade/Vocational Certificate Difficulty w/ Childcare or Family Care: No Spiritual care concerns: No Comments At the time of my signature, I reviewed and agree with the nursing past medical, surgical, social, and family history. There is no relevant family history pertinent to the patient complaint. Exam Narrative: GENERAL: This is a well-nourished, well-developed adult, in no apparent distress. They are non ill-appearing, nontoxic appearing. HEAD: normocephalic, atraumatic. EYES: Sclera clear/white. Vision is grossly intact. Conjunctiva normal bilaterally. Extraocular movements intact. EARS: External ears normal,Hearing grossly intact. NOSE: External nose normal THROAT: Mucous membranes moist NECK: Normal range of motion CARDIOVASCULAR: Regular rate and rhythm. Normal S1-S2. No clicks, gallops, rubs, murmurs. RESPIRATORY: Respiratory rate normal, respiratory effort nonlabored, no respiratory distress. Lung sounds clear to auscultation throughout. Lung sounds equal bilaterally. No adventitious lung sounds. GASTROINTESTINAL: Abdomen soft, flat, non-tender, nondistended. Bowel sounds are active. No hepato-splenomegaly, or palpable masses. No guarding or rigidity. No rebound tenderness. SKIN: warm, Dry, intact with no suspicious lesions or rash, good texture and turgor. NEURO: awake, alert, and oriented to person, place and time. There were no obvious focal neurologic abnormalities. EXTREMITIES: No joint tenderness, effusion, or edema noted. BACK: Nontender without deformity. No CVA tenderness. Course Course Emergency Course: Portions of this record may have been created with voice recognition software Level of Care: Express Care Visit Vital Signs Vital signs: Vital Signs Temperature 98 F 01/07/25 15:13 Pulse Rate 76 01/07/25 15:13 Respiratory Rate 16 01/07/25 15:13 Blood Pressure 126/90 01/07/25 15:13 Pulse Oximetry 100 01/07/25 15:13 Oxygen Delivery Room Air 01/07/25 15:13 Temperature 98 F 01/07/25 15:13 Pulse Rate 76 01/07/25 15:13 Respiratory Rate 16 01/07/25 15:13 Blood Pressure 126/90 01/07/25 15:13 Pulse Oximetry 100 01/07/25 15:13 Oxygen Delivery Room Air 01/07/25 15:13 MDM - Female Genitourinary MDM Narrative Medical decision making narrative: Unable to perform urine dipstick because patient took azo was tablet which may contaminated the results. Urine culture pending. Patient says is consistent with urinary tract infection. Patient has allergies to cephalosporins and sulfas, will treat with Augmentin. Patient tolerated penicillins in the past she says. Discussed physical exam findings. Advised supportive measures and signs/symptoms to go to the ER. Pt is appropriate for outpt treatment and f/u. Differential Diagnosis Differential diagnosis: Likely urinary tract infection, cystitis and other (Pyelonephritis) Lab Data Attestation: I reviewed the patient's lab results. Discharge Plan Discharge Clinical Impression: Urinary tract infection Qualifiers: Urinary tract infection type: site unspecified Hematuria presence: without hematuria Qualified Code(s): N39.0 - Urinary tract infection, site not specified Patient Disposition: Home Condition: Stable Instructions: Antibiotic Form, Urinary Tract Infection in Women (ED) Additional Instructions: Take the antibiotic as prescribed The urine will be sent of for a culture to identify what type of bacteria is causing your infection. If the culture shows that the antibiotic will not get rid of your infection, you will be notified and a new antibiotic will be called in for you. Increase water intake you will need to follow up with your PCP 3-5 days. Go to the ER for any worsening symptoms, abdominal pain, fevers, nausea, vomiting, or any other concerns Patient Language: Thai Prescriptions: New amoxicillin-pot clavulanate 875-125 mg tablet 1 tablet PO Q12H 5 Days Qty: 10 0RF No Action escitalopram oxalate 20 mg tablet 20 mg PO DAILY Follow-up/Referrals: PHYSICIAN,FITTING ROOM OPERATOR [Primary Care Provider, Internal Medicine] Time of Disposition: 15:33
== END 2025-01-07 15:36 | disposition home or self-care (01) ==
DX: O86.20 Urinary tract infection following delivery, unspecified (principal); N39.0 Urinary tract infection, site not specified; O99.345 Other mental disorders complicating the puerperium; F41.9 Anxiety disorder, unspecified
CPT/HCPCS: 87086; 87186; 99213; G0463